=== PATIENT | female | born 1995 | race Caucasian/White ===

== ENCOUNTER 2020-09-22 16:21 | Emergency (ER) | payer SELFPAY ==
--- OUTSIDE RECORDS SUMMARY | 2020-09-22 16:25 | XMS REPORT | Continuity of Care Document ---
:1995 Author Organization [facility] t Address [address] [place] [address] Care Team Providers Name Role Phone CAITY Attending Clinician Unavailable ROSA MARIA Attending Clinician Unavailable Jd Murrell Attending Clinician OSKAR Attending Clinician Unavailable SEED SALES MANAGER Attending Clinician Unavailable SEED SALES MANAGER Attending Clinician Unavailable Jd Murrell Admitting Clinician Problems Condition Condition Condition Status Onset Resolution Last Treating Co mments Source Name Details Category Date Date Treatment Clinician Date LABOR Diagnosis Active 2018-06-23 Mem oria 3-22 15:46:00 l LABOR 18:06: [place] 00 Active 06/17/[address] [facility] Maternal Maternal Problem Active Unive rs morbid morbid it[place] of [place] third third Physici trimester, trimester, an s antepartum antepartum Encounter Encounter Problem Active Uni vers for for it[place] of [place] of n of Physici normal normal ans Cocaine Cocaine Problem Active Univers abuse abuse ity of [place] Physici ans Problem Active U nivers exam exam ity of [place] Physici ans Well woman Well woman Problem Active U nivers exam exam ity of [place] Physici ans Patient Problem Resolve 2017-2018-06-23 2018-06-23 Memoria currently d - 23:11:07 23:11:07 l Patient 00:00: Barbie nn (finding) currently 00 (finding) Resolved 09/15/2017 Problem 06/23/[address] [facility] Allergies, Adverse Reactions, Alerts This patient has no known allergies or adverse reactions. Social History Social Habit Start Date Stop Date Quantity Comments Source Social History 2018-06-18 2018-06-18 [facility] 01:06:19 01:06:19 Smoking Status Start Date Stop Date Source Former smoker [facility] Physicians Medications Ordered Filled Start Stop Current Ordering Indication Dosage Frequency Signature Comments Components Source Medication Medication Date Date Medication? Clinician (SIG) Name Name tramadol Yes 50 mg = 1 Jacoby fransico hydrochlori 3-26 tab, PO, l de 50 MG 19:59: Q6H, PRN Barbie nn Oral Tablet 00 Pain Score 1-3, # 10 tab, 0 Refill(s) CitraNatal Yes 1 cap, PO, M emoria [place] 3-26 Daily, # l oral 19:52: 90 cap, 0 Wes capsule 00 Refill(s), Pharmacy: [facility] ibuprofen Yes 600 mg = 1 Me moria 600 mg oral 3-26 tab, PO, l tablet 19:52: Q6Hnow, # David n 00 60 tab, 0 Refill(s), Pharmacy: [facility] Docusate Yes 100 mg = 1 Mem oria Sodium 100 3-26 cap, PO, l MG Oral 19:52: BID, PRN David n Capsule 00 Constipati on, # 20 cap, 0 Refill(s), Pharmacy: [facility] Tylenol No Notes: Do Memor ia 3-25 not exceed l 12:38: 4 gm/day. [place] (Same as: Tylenol) Tramadol No Notes: Not Mem oria 3-24 to exceed l 17:00: 400mg/day. [place] (Same As: Ultram) No 1 tab, Memoria Multivitami 3-24 Route: PO, l ns oral 14:00: Drug Form: Herm kiran tablet 00 TAB, Dosing Weight 98.636, kg, Daily, Start date: 06/19/18 9:00:00 CDT, Duration: 30 day, Stop date: 07/18/18 9:00:00 CDT Naloxone No Notes: Memoria 3-24 Same as l 13:00: Narcan [place] Meperidine No Notes: Memor ia 3-24 (Same as: l 12:27: Demerol) Wes "Use Precaution in Elderly, Seizure disorders, and Renal impairment " Diphenhydra No Notes: Jacoby fransico mine 3-24 (Same as: l 12:27: Benadryl) Oxycodone No Notes: Memori a Hydrochlori 3-24 (Same as: l de 5 MG 12:27: Roxicodone Herm kiran Oral Tablet 00 ) Ondansetron No Notes: Jacoby fransico 3-24 (Same as: l 12:27: Zofran) MEDICATION WASTE Product Size: 4 mg Product Wasted: ___ mg Acetaminoph No Notes: Max Memoria en 3-24 acetaminop l 12:27: hen 4000 [place] mg/day (4 gm/day). (Same as: Tylenol Extra Strength) Ibuprofen No Notes: Memori a 3-24 (Same as: l 12:27: Motrin) Wes 00 "Do Not Crush" Take with food. RhoGam (MAY 2018 Yes 300 Memori a Charting) 3-23 microgram, l 21:44: Route: IM, ONCE, Dosing Weight 98.636, kg, Start date: 06/18/18 16:44:00 CDT, Stop date: 06/18/18 16:44:00 CDT Benadryl No Notes: Memoria 3-23 (Same as: l 19:21: Benadryl) Ibuprofen No Notes: Memori a 3-23 (Same as: l 19:00: Motrin) Wes 00 "Do Not Crush" Take with food. M-M-R II No Notes: Memoria 3-23 (Same as: l 19:00: M-M-R II) (measles-m umps-rubel la virus vaccine 0.5 ml INJ VL) WASTE: F/P - Red; E -Red GIVE PRIOR TO DISCHARGE propofol No Route: IV, Mem oria (ANES) 3-23 Drug form: l 18:12: INJ, ONCE, Stop date: 06/18/18 13:12:00 CDT Acetaminoph No Notes: Jacoby fransico en 325 MG / 3-23 (Same as: l Hydrocodone 18:10: [place] Barbie nn Bitartrate 00 325/5) Do 5 MG Oral not exceed Tablet 4gm/day of acetaminop hen. Acetaminoph No Notes: Do M emoria en 325 MG / 06-18 not exceed l Hydrocodone 18:10: 4gm/day of [place] Bitartrate 00 acetaminop 10 MG Oral hen. Tablet (Same as: [place] 325/10) zolpidem No Notes: Memoria 3-23 (Same As: l 18:10: Ambien) Acetaminoph No Notes: Do M emoria en - not exceed l 18:10: 4 gm/day. (Same as: Tylenol) Simethicone No Notes: Jacoby fransico - (Same as: l 18:10: Mylicon) lanolin No 1 appl, Memoria topical 06-18 Route: l cream 18:10: TOP, PRN, Drug form: OINT, PRN Other -See Comment, Start date: 06/18/18 13:10:00 CDT, Duration: 30 day, Stop date: 07/18/18 13:09:00 CDT Benzocaine No Notes: Memor ia / Menthol 06-18 Cepacol l 18:10: lozenges Dispense 1 box = 16 lozenges (Same As: Cepacol Lozenges) Bisacodyl No Notes: Memori a - (Same As: l 18:10: Dulcolax, Bisco-Lax) Docusate No Notes: Memoria - (Same as: l 18:10: Colace) (Do Not Crush) Lactated No 1,000 mL, Jacoby fransico Ringers IV 06-18 Rate: 100 l 1,000 mL 18:10: ml/hr, Infuse over: 10 hr, Route: IV, Dosing Weight 98.636 kg, Total Volume: 1,000, Start date: 06/18/18 13:10:00 CDT, Duration: 30 day, Stop date: 07/18/18 13:09:00 CDT, 2.09, m2 Oxytocin 2019-0 No 30 unit, Memor ia 3-23 500 mL, l 18:10: Rate: 42 Wes 00 ml/hr, Infuse over: 11.9 hr, Dosing Weight 98.636, kg, Route: IV, Total Volume: 500 mL, Start date: 06/18/18 13:10:00 CDT, Duration: 2 day, Stop date: 06/20/18 13:09:00 CDT, Replace Every: 11.9 hr methylergon 2019-0 No Route: IM, Memoria ovine 3-23 Drug form: l (ANES) 17:37: INJ, ONCE, Barbie nn Stop date: 06/18/18 12:37:00 CDT esmolol 2019-0 No Route: IV, Jacoby fransico (ANES) 3-23 Drug form: l 17:27: INJ, ONCE, Wes Stop date: 06/18/18 12:27:00 CDT ketAMINE 2019-0 No Route: IV, Mem oria (ANES) 3-23 Drug form: l 17:27: INJ, ONCE, Wes Stop date: 06/18/18 12:27:00 CDT midazolam 2019-0 No Route: IV, Me moria (ANES) 3-23 Drug form: l 17:27: SOLN, [place] ONCE, Stop date: 06/18/18 12:27:00 CDT fentaNYL 2019-0 No Route: IV, Mem oria (ANES) 3-23 Drug form: l 17:17: INJ, ONCE, Wes Stop date: 06/18/18 12:17:00 CDT Pitocin 2019-0 No Route: IV, Jacoby fransico (ANES) 3-23 Drug form: l 17:12: SOLN, [place] 00 ONCE, Stop date: 06/18/18 12:12:00 CDT carboprost 2019-0 No Route: IM, M emoria (ANES) 3-23 Drug form: l 17:07: INJ, ONCE, [place] Stop date: 06/18/18 12:07:00 CDT tranexamic 2019-0 No Route: IV, M emoria acid (ANES) 3-23 Drug form: l 17:07: INJ, ONCE, Stop date: 06/18/18 12:07:00 CDT Atropine 2019-0 No Notes: Memoria Sulfate 3-23 (Same As: l 0.025 MG / 17:06: Lomotil) Her osorio Diphenoxyla 00 MAX Adult te dose = 8 Hydrochlori tabs/day de 2.5 MG Oral Tablet [Lomotil] morphine No Route: Memoria Sulfate 3-23 EPIDURAL, l (ANES) 16:57: Drug form: Barbie nn 00 INJ, ONCE, Stop date: 06/18/18 11:57:00 CDT ropivacaine No Route: IV, Memoria 1% (ANES) 3- Drug Form: l 16:47: INJ, ONCE, Stop date: 06/18/18 11:47:00 CDT ondansetron No Route: IV, Memoria (ANES) 3-23 Drug form: l 16:47: INJ, ONCE, Stop date: 06/18/18 11:47:00 CDT phenylephri No Route: Jacboy fransico ne (ANES) 3- IVP, Drug l 16:47: form: INJ, ONCE, Stop date: 06/18/18 11:47:00 CDT metoclopram No Route: IV, Memoria loida (ANES) 3- Drug form: l 16:47: INJ, ONCE, Stop date: 06/18/18 11:47:00 CDT sodium 2018- No Route: PO, Memor ia citrate - Drug Form: l (ANES) 16:47: INJ, ONCE, Barbie Stop date: 06/18/18 11:47:00 CDT famotidine No Route: IV, M emoria (ANES) 3-23 Drug form: l 16:42: INJ, ONCE, Stop date: 06/18/18 11:42:00 CDT ceFAZolin No Route: IV, Me moria (ANES) 3-23 Drug form: l 16:42: INJ, ONCE, Stop date: 06/18/18 11:42:00 CDT Pitocin 2018- No Route: IV, Jacoby fransico (ANES) 30 3-23 Drug form: l unit + 16:30: Wes KEYS Dosing Weight 98.6, kg, Start date: 06/18/18 11:30:00 CDT, Stop date: 06/18/18 12:30:00 CDT Lactated 2018- No Route: IV, Mem oria Ringers 3-23 Total l Injection 15:53: Volume: Barbie nn IV (ANES) 00 1,000, 1000 mL Start date: 06/18/18 10:53:00 CDT, Stop date: 06/18/18 11:53:00 CDT Ondansetron No Notes: Jacoby fransico 3-23 (Same as: l 15:39: Zofran) [place] 00 MEDICATION WASTE Product Size: 4 mg Product Wasted: ___ mg Morphine No Notes: Memoria 3-23 (Same l 15:39: as:MORPhin [place] 00 e Sulfate) Sodium No 250 mL, Memoria Chloride 3-23 Rate: To l 0.9% 15:38: prime line Wes (titrate) 00 and flush 250 mL remaining blood products., Dosing Weight 98.636, kg, Route: IV, Total Volume: 250, Start Date: 06/18/18 10:38:00 CDT, Duration: 1 day, Stop date: 06/19/18 10:37:00 CDT, Replace Every: 24 hr Oxytocin 2019- No 30 unit, Memor ia 3-23 500 mL, l 01:27: Rate: Wes 00 Titrate, Dosing Weight 98.636, kg, Route: IV, Total Volume: 500 mL, Start date: 06/17/18 20:27:00 CDT, Duration: 2 day, Stop date: 06/19/18 20:26:00 CDT, Replace Every: 24 hr Carboprost No Notes: Memor ia 3-23 (Same As: l 00:00: Hemabate) Wes 00 Methylergon No Notes: Jacoby fransico ovine 3-23 (Same l 00:00: as:Metherg [place] 00 ine) Famotidine No Notes: Memor ia 3-23 (Same as: l 00:00: Pepcid) [place] Can be dilute in 5-10cc NS IVP: Slow IV push over at least 2 minutes. Citric Acid No Notes: Jacoby fransico / sodium 3-23 (Same As: l citrate 00:00: Bicitra, David n 00 Cytra-2) Sodium citrate-ci tric acid (500-334 mg/5 mL): 1 mL contains sodium 1 mEq/mL and bicarbonat e 1 mEq/mL Misoprostol No Notes: Jacoby fransico 3-23 (Same l 00:00: as:Cytotec Wes 00 ) Take with food Ibuprofen No Notes: Memori a 3-22 (Same as: l 23:38: Motrin) [place] "Do Not Crush" Take with food. Acetaminoph No Notes: Jacoby fransico en 325 MG / 3-22 (Same as: l Hydrocodone 23:38: [place] Barbie nn Bitartrate 00 325/5) Do 5 MG Oral not exceed Tablet 4gm/day of acetaminop hen. Ondansetron No Notes: Jacoby fransico 3-22 (Same as: l 23:38: Zofran) Wes MEDICATION WASTE Product Size: 4 mg Product Wasted: ___ mg Terbutaline No Notes: Jacoby fransico 3-22 DO NOT l 23:38: USE IN Wes 00 SEED SALES MANAGER AREA (Same As: [place]) Lidocaine No Notes: Memori a Hydrochlori -22 Preservati l de 10 MG/ML 23:38: ve free. [facility] rmann Injectable (Same as: Solution Xylocaine MPF) Butorphanol No Notes: Jacoby fransico 3-22 (Same As: l 23:38: Stadol) Wes MEDICATION WASTE Product Size: 2 mg Product Wasted: ___ mg Lactated No 1,000 mL, Jacoby fransico Ringers IV 06-17 Rate: 125 l 1,000 mL 23:38: ml/hr, [place] Infuse over: 8 hr, Route: IV, Total Volume: 1,000, Start date: 06/17/18 18:38:00 CDT, Duration: 30 day, Stop date: 07/17/18 18:37:00 CDT Calcium 2019-0 No 1,000 mL, Memor ia Chloride 3-22 1,000 l 0.0014 23:38: ml/hr, Wes MEQ/ML / 00 Infuse Potassium Over: 1 Chloride hr, Route: 0.004 IV, 1,000, MEQ/ML / Drug form: Sodium INJ, ONCE, Chloride kg, Start 0.103 date: MEQ/ML / 06/17/18 Sodium 18:38:00 Lactate CDT, Stop 0.028 date: MEQ/ML 06/17/18 Injectable 18:38:00 Solution CDT, Bolus for regional anesthesia per unit routine Oxytocin 2019 No 30 unit, Memor ia 3-22 500 mL, l 23:38: Rate: 42 [place] 00 ml/hr, Infuse over: 11.9 hr, Route: IV, Total Volume: 500 mL, Start date: 06/17/18 18:38:00 CDT, Duration: 2 day, Stop date: 06/19/18 18:37:00 CDT, Replace Every: 11.9 hr tetanus/dip 2019-0 No Notes: Jacoby fransico hth/pertuss 3-22 Therapeuti l (Tdap) 05:00: c [place] adult/adol 00 Interchang e for Boostrix Vital Signs Vital Name Observation Time Observation Value Comments Source BP Systolic 2018-08-04 120 mm[Hg] Location: [facility] 13:52:00 Position: [place] Physician s Sitting BP Diastolic 2018-08-04 80 mm[Hg] Location: [facility] 13:52:00 Position: [place] Physician s Sitting Height 2018-08-04 61 [in_us] [facility] 13:52:00 [place] Physician s Weight 2018-08-04 202.8 [lb_av] [facility] 13:52:00 [place] Physician s Body Mass Index 2018-08-04 38.32 kg/m2 University o f Calculated 13:52:00 [place] Physician s Heart Rate 2018-08-04 86 /min [facility] 13:52:00 [place] Physician s BP Systolic 2018-07-01 125 mm[Hg] Location: [facility] 14:04:00 Position: [place] Physician s Sitting BP Diastolic 2018-07-01 84 mm[Hg] Location: RUE; [facility] 14:04:00 Position: [place] Physician s Sitting Height 2018-07-01 61 [in_us] [facility] 14:04:00 [place] Physician s Weight 2018-07-01 203 [lb_av] [facility] 14:04:00 [place] Physician s Body Mass Index 2018-07-01 38.36 kg/m2 University o f Calculated 14:04:00 [place] Physician s Heart Rate 2018-07-01 79 /min [facility] 14:04:00 [place] Physician s Temperature Oral 2018-06-21 98.0 F [facility] ([facility] 13:36:00 Respitory Rate 2018-06-21 [facility] 13:36:00 Systolic (mm Hg) 2018-06-21 [facility] 13:36:00 Diastolic (mm Hg) 2018-06-21 [facility] 13:36:00 Heart Rate 2018-06-21 [facility] 13:36:00 Temperature Oral 2018-06-21 97.8 F [facility] (F) 05:00:00 Heart Rate 2018-06-21 [facility] n 05:00:00 Respitory Rate 2018-06-21 [facility] 05:00:00 Systolic (mm Hg) 2018-06-21 [facility] 05:00:00 Diastolic (mm Hg) 2018-06-21 [facility] 05:00:00 Heart Rate 2018-06-20 [facility] David n 22:32:00 Temperature Oral 2018-06-20 97.5 F [facility] (F) 22:32:00 Respitory Rate 2018-06-20 [facility] 22:32:00 Systolic (mm Hg) 2018-06-20 [facility] 22:32:00 Diastolic (mm Hg) 2018-06-20 [facility] 22:32:00 Height 2018-06-18 152.4 cm [facility] David n 00:28:00 BMI Calculated 2018-06-18 [facility] 00:28:00 Weight 2018-06-18 [facility] David n 00:28:00 Height 2018-06-17 154.94 cm [facility] n 23:54:00 Weight 2018-06-17 [facility] n 23:54:00 BMI Calculated 2018-06-17 [facility] 23:54:00 BP Systolic 2018-06-16 132 mm[Hg] Location: E; [facility] 13:43:00 Position: [place] Physician s Sitting BP Diastolic 2018-06-16 85 mm[Hg] Location: E; [facility] 13:43:00 Position: [place] Physician s Sitting Height 2018-06-16 61 [in_us] [facility] 13:43:00 [place] Physician s Weight 2018-06-16 219 [lb_av] [facility] 13:43:00 [place] Physician s Body Mass Index 2018-06-16 41.38 kg/m2 University o f Calculated 13:43:00 [place] Physician s Heart Rate 2018-06-16 101 /min University 13:43:00 [place] Physician s BP Systolic 2018-06-09 117 mm[Hg] Location: E; [facility] 12:59:00 Position: [place] Physician s Sitting BP Diastolic 2018-06-09 80 mm[Hg] Location: [facility]; [facility] 12:59:00 Position: [place] Physician s Sitting Height 2018-06-09 61 [in_us] University 12:59:00 [place] Physician s Weight 2018-06-09 218 [lb_av] University 12:59:00 [place] Physician s Body Mass Index 2018-06-09 41.19 kg/m2 University o f Calculated 12:59:00 [place] Physician s Heart Rate 2018-06-09 102 /min University 12:59:00 [place] Physician s BP Systolic 2018-06-02 116 mm[Hg] Location: [place]; [facility] 13:34:00 Position: [place] Physician s Sitting BP Diastolic 2018-06-02 79 mm[Hg] Location: [facility]; [facility] 13:34:00 Position: [place] Physician s Sitting Height 2018-06-02 61 [in_us] University 13:34:00 [place] Physician s Weight 2018-06-02 217 [lb_av] University 13:34:00 [place] Physician s Body Mass Index 2018-06-02 41 kg/m2 University o f Calculated 13:34:00 [place] Physician s Heart Rate 2018-06-02 78 /min University 13:34:00 [place] Physician s Procedures Procedure Date / Time Performing Clinician Source Performed [O] Urine Test 2018-08-04 00:00:00 [facility] [place] (in office) Physicians . [facility] - PAP w/reflex 2018-08-04 00:00:00 [facility] [place] HPV Physicians [QLH] RPR 2018-06-02 00:00:00 [place] [facility] Physicians [QH] HIV AB, HIV 1/2, EIA, 2018-06-02 00:00:00 U [facility] WITH REFLEXES Physicians . [facility] - Affirm VPIII 2018-06-02 00:00:00 [facility] (BV Panel) Physicians . [facility] - GC/Chlamydia 2018-06-02 00:00:00 Univ [facility] Physicians [QH] HEPATITIS B SURFACE 2018-06-02 00:00[facility] Physician s [QL] HEPATITIS C ANTIBODY 2018-06-02 [facility]:00[facility] [[facility] Drug Screen Urine (9 2018-06-02 00:00:00 Uni [facility] Drugs) Physicians [H] Hemoglobin 2018-06-02 00:00:00 [facility] Electrophoresis and Physicians Interpretation [H] Obstetrics Panel 2018-06-02 00:00:00 [facility] (includes CBCw/Diff,RPR, Physici ans HbsAg,RubIgG,Type and Screen) [H] Treponema Pallidum 2018-06-02 00:00:00 [facility] Antibody by TP-[facility] Physicians [QH] [id number] 2018-06-02 00:00:00 [facility] DEHYDROGENASE, QUANT. Physicians [QLH] CULTURE, URINE, 2018-06-02 00:00:00 [facility] ROUTINE Physicians [QLH] URINALYSIS, COMPLETE 2018-06-02 00:00:00 U [facility] Physicians [QH] STREPTOCOCCUS, GROUP 2018-06-02 00:00[facility] (Genital Strep Physici ans Screen) Encounters Start End Encounter Admission Attending Care Care Encounter Source Date/Time Date/Time Type Type Clinicians Facility Department ID 2018-08-04 2018-08-04 YASEMIN López Meat Carrier [id number] Univers 14:45:00 14:45:00 armando KRAUS M.D. it [facility] [place] Phys[facility] M.D. ans 2018-07-01 2018-07-01 YASEMIN [facility] [id number] Univers 15:00:00 15:00:00 t; Arabella STEPHENS itBrian D.O. [place] STEPHENS D.O. ans 2018-06-17 2018-06-21 Outpatient [facility] 404 [id number] 18:18:00 18:00:00 Aurora parra 81 J 2018-06-16 2018-06-16 Appointmen YASEMIN SCHMITT Meat Carrier [id number] Univers 13:30:00 13:30:00 t; KATHY SCHMITT it y [place], M.D. [place] M.D. Physici ans 2018-06-09 2018-06-09 Appointmen SEED SALES MANAGER [facility] [id number] Univers 15:30:00 15:30:00 t; SEED SALES MANAGER, ROOM1 ity of ROOM1 [place] Physici ans 2018-06-09 2018-06-09 Appointmen YASEMIN SCHMITT Meat Carrier [id number] Univers 13:45:00 13:45:00 t; KATHY SCHMITT it y of [place], M.D. [place] M.D. Physic ans 2018-06-03 2018-06-03 Appointmen SEED SALES MANAGER [facility] [id number] Univers 11:30:00 11:30:00 t; SEED SALES MANAGER, ROOM4 ity of ROOM4 [place] Physici ans 2018-06-02 2018-06-02 AppointYASEMIN Magana Meat Carrier [id number] Univers 14:30:00 14:30:00 t; KATHY SCHMITT it y of [place], M.D. [place] Josie [facility] ans Results Test Description Test Time Test Comments Results Result Comments Source [facility] Report 2018-08-04 00:00:00 Test Item Value Reference Range Interpretation Comme nts REPORT (test code = REPORT) See Comment [facility] Physicians[O] Urine Test (in office)2018-08-04 00:00:00 Test Item Value Reference Range Interpretation Comments Test, Urine; Normal (test negative N code = 2106-3) [facility] [id number] 11:23:38324Cyewrbgk Wes ATKIIOUAKU0731-72-26 11:23:008.0[facility] NzsszgkGKWMZJIMMH2122-80-50 11:23:00 33.7[facility] SioiqqyYCQUWCSBJX0185-74-37 11:23:0014.7[facility] HermannHEMATOLOGY 2018-06-20 11:23:0084.3[facility] EolzocoDFATPCKKTL9732-46-05 11:23:00 Test Item Value Reference Range Interpretation Comments MCH (test code = MCH) 28.4 pg 27.0-31.0 Memorial ZkhlcgrGOMVULKURO4981-30-38 11:23:008.9[facility] HermannHEMATOLOGY 2018-06-20 11:23:0014.6[facility] EchhyjiQITIPCOJAK2979-55-74 11:23:0026.4[facility] XtyxdduHJOLUDTJVH2045-45-15 11:23:003.13[facility] UidqqgnYBMALSVUJK4455-25-67 11:23:001.5[facility] ZvjqboxNDUYSHPGEA2682-04-94 11:23:000.1[facility] Wes BREEAQGPPK1310-24-83 11:23:0013.1[facility] JjqiujoTSCHRBIGOO3984-51-90 11:23:00 79.9[facility] GnynfwzXIVMVUQYFE3473-77-48 11:23:000.2[facility] HermannHEMATOLOGY 2018-06-20 11:23:000.8[facility] VokbpndRYNPBTGVWX2727-47-81 11:23:0011.7[facility] SnovhsbQFBNLNCGIN2270-43-69 11:23:001.9[facility] UiphqwvQAGGNQBGZK3971-59-72 11:23:005.4[facility] JnotlmeNNDSRIHAFL0579-10-61 10:59:0028.3[facility] [place] AFFKTJHIQY3024-79-25 10:59:009.4[facility] KjvjgjoSFBVQPBVGJ7125-78-91 01:25:00 31.5[facility] VrrsqilEQFHUHPUDT0603-81-12 01:25:0010.4[facility]annBL[facility]OD BANK [id number] 22:00:34Neg (06/18/18 5:00 PM)[facility] [id number] 21:44:00Product available (06/18/18 4:44 PM)[facility] BLOOD BANK [id number] 18:20:00Product available (06/18/18 1:20 PM)[facility] HermannCHEM [id number] 05:42:77595Smqfjypi HermannCHEM [id number] 05:42:00 Test Item Value Reference Range Interpretation Comments B/C Ratio (test code = B/C Ratio) 12 1 6-25 [facility]annCHE[facility] [id number] 05:42:004.3[facility] HermannCHEM PANEL 2018-06-18 05:42:000.1[facility] HermannCHEM [id number] 05:42:0014.9[facility] HermannCHEM [id number] 05:42:00 Test Item Value Reference Range Interpretation Comments A/G Ratio (test code = A/G Ratio) 0.6 1 0.7-1.6 [facility]annCHEM [id number] 05:42:0082[facility] HermannCHEM PANEL 2018-06-18 05:42:009[facility] HermannCHEM YJQPK7136-89-29 05:42:000.72[facility] HermannCHEM RJQRM6021-56-32 05:42:006.8[facility] HermannCHEM [id number] 05:42:002.5[facility] HermannCHEM MBVAN3420-01-12 05:42:0012[facility] HermannCHEM [id number] 05:42:0020[facility] HermannCHEM ZYGOA4851-26-09 05:42:84571 [facility]annCHEM [id number] 05:42:27954Rymiiaby HermannCHEM PANEL 2018-06-18 05:42:003.9[facility] HermannCHEM [id number] 05:42:61914Slxgxkfl HermannCHEM ZTGYO1582-95-08 05:42:0022[facility] HermannCHEM [id number] 05:42:009.0[facility] HermannURINE [id number] 05:42:00 Test Item Value Reference Range Interpretation Comments U Prot/Creat (test code = U 0.15 1 Prot/Creat) [facility]annURINE [id number] 05:42:0013.4[facility]annURINE CHEM 2018-06-18 05:42:0087.20[facility]annBLOOD BANK [id number] 00:32:00 Positive 1(06/17/18 7:32 PM)[facility]annDR[facility] [id number] 00:32:00 Negative *NA*(06/17/18 7:32 PM)[facility]annDR[facility] [id number] 00:32:00 Negative *NA*(06/17/18 7:32 PM)[facility]annDR[facility] [id number] 00:32:00 Negative *NA*(06/17/18 7:32 PM)[facility]annDR[facility] [id number] 00:32:00 Negative *NA*(06/17/18 7:32 PM)[facility] FCMGJP6038-62-09 00:32:00 Negative *NA*(06/17/18 7:32 PM)[facility] HYRVUA1709-90-32 00:32:00 Negative *NA*(06/17/18 7:32 PM)[facility] LAYNWP1787-38-33 00:32:00 Negative *NA*(06/17/18 7:32 PM)[facility] TSVZOP6889-61-00 00:32:00 Negative *NA*(06/17/18 7:32 PM)[facility] EIZJMJ0378-49-71 00:32:00See Note (06/17/18 7:32 PM)[facility] MJFONW9376-35-80 00:32:00Negative *NA*(06/17/18 7:32 PM)[facility] AGTOAS6001-44-69 00:32:00Negative *NA*(06/17/18 7:32 PM)[facility] WcsdlvqEOXBGHPKEQ4675-70-31 00:32:000.2[facility] WsjvidmYYCUUXMYXJ5031-55-08 00:32:000.3[facility] CzjqmobJJFOXRUJYK9145-19-14 00:32:001.7[facility] BmjtakpEAXCDCDWKL1256-78-44 00:32:000.6[facility] [place] MUZJPDRRUV5709-29-16 00:32:007.7[facility] BkgmqyeIQVLXGFLET3308-57-46 00:32:002.5 [facility] AqdsuhoJSSQLIDEWO5412-94-76 00:32:0069.7[facility] 2018-06-18 00:32:005.3[facility] WuegauaSFZRILWQXC4818-00-20 00:32:0023.0[facility] SkikbquVWJZGFHVHF3558-01-12 00:32:81329Ajmmzpld GdteokqXLAHYVLXYN6123-33-78 00:32:0014.2[facility] VckpgnbNQCZFQOAYP6925-00-23 00:32:008.5[facility] ZXGFDZFDQJ1094-13-15 00:32:0083.0[facility] PltbzeyMQRJJVDGRX2162-21-99 00:32:00 33.0[facility] KrcnockFMOLSWHJFN4150-76-94 00:32:00 Test Item Value Reference Range Interpretation Comments MCH (test code = MCH) 27.4 pg 27.0-31.0 [facility] NyosgyqYBIHMRTSUS9844-80-61 00:32:0011.1[facility] 2018-[facility]18 00:32:003.92[facility] [id number] 00:32:00Negative *NA*(06/17/18 7:32 PM)[facility] [id number] 00:32:00Negative *NA*(06/17/18 7:32 PM)[facility] [id number] 00:32:00Non-Reactive *NA*(06/17/18 7:32 PM)[facility][H] Obstetrics Panel (includes CBCw/Diff,RPR, HbsAg,RubIgG,Type and Screen)2018-06-02 14:48:01 Test Item Value Reference Range Interpretation Comments WBC; Above High 11.0 {K/CMM} 3.7-10.4 Threshold (test code = 6690-2) RBC; Below Low 4.03 {M/CMM} 4.20-5.40 Threshold (test code = 789-8) Hgb; Below Low 11.3 g/dl 12.0-16.0 Threshold (test code = 717-9) Hct; Below Low 33.8 % 36.0-48.0 Threshold (test code = 71762-3) MCV (test code = 84.1 fL 80.0-98.0 787-2) MCH (test code = 28.1 pg 27.0-31.0 67113-8) MCHC (test code = 33.5 g/dl 32.0-36.0 786-4) RDW (test code = 13.9 % 11.5-14.5 788-0) Platelet (test code = 292 {K/CMM} 133-450 777-3) MPV (test code = 8.4 fL 7.4-10.4 08264-3) Segs (test code = 74.9 % 45.0-75.0 83144-1) Monocytes # (test 0.5 {K/CMM} 0.0-0.8 code = 01142-4) Lymphocytes (test 19.8 % 20.0-40.0 code = Lymphocytes) Eosinophils (test 0.9 % 0.0-4.0 code = Eosinophils) Basophils (test code 0.2 % 0.0-1.0 = 91209-8) Segs-Bands #; Above 8.2 {K/CMM} 1.5-8.1 High Threshold (test code = 42651-5) Lymphocytes # (test 2.2 {K/CMM} 1.0-5.5 code = 06407-4) Eosinophils # (test 0.1 {K/CMM} 0.0-0.5 code = 15239-4) ABORH (test code = O NEG 882-1) AB Screen (test code Positive = 890-4) Rubella IgG (test 231.9 {IU/ml} >=10.0 Reference Range: code = 96802-8) Immune >= 10 IU/mL Hep Bs Ag (test code Negative Negative = 5195-3) RPR (test code = Non-Reactive Non-Reactive 45231-5) [facility][QH] HEPATITIS B SURFACE ANTIGEN W/REFL CONFIRM 2018-06-02 14:48:01 Test Item Value Reference Range Interpretation Comments Hepatitis B Surface Antigen (test Negative Negative code = 5195-3) [facility]] HEPATITIS C [id number] 14:48:01 Test Item Value Reference Range Interpretation Comments Hepatitis C Antibody (test code = Negative 43541-9) [facility][] HIV AB, HIV 1/2, EIA, WITH [id number] 14:48:01 Test Item Value Reference Range Interpretation Comments HIV Ag/Ab 4th Gen Negative Negative HIV test r esults should be (test code = considered posi tive only 83284-4) when both the s creening andthe confirma tory tests are positive. A negative confirmatory te st in patientswith a positive screening test does not exclude HIV inf ection. If clincallywarran kayley, an HIV RNA quantitativ e test should be order ed. [facility]] URINALYSIS, [id number] 14:48:01 Test Item Value Reference Range Interpretation Comments UA Color (test code = 5778-6) Ltyellow UA Turbidity (test code = 04681-3) Clear Clear UA Spec Grav (test code = 5810-7) 1.012 <=1.030 UA pH (test code = 5803-2) 6.0 5.0-8.0 UA Protein (test code = 94044-7) Negative Negative UA Glucose (test code = 00921-3) Negative Negative UA Ketones (test code = 57583-9) Negative Negative UA Bili (test code = 5770-3) Negative Negative UA Blood (test code = 5794-3) Negative Negative UROBILINOGEN (test code = 29420-3) <=1.0 0.1-1.0 UA Nitrite (test code = 5802-4) Negative Negative UA Leuk Est (test code = 5799-2) Negative Negative UA RBC (test code = 48200-5) 1 {/HPF} 0-2 UA WBC (test code = 89532-1) 2 {/HPF} 0-5 UA Bacteria (test code = 25165-5) Occasional None Seen UA Mucus (test code = 8247-9) Few None Seen UA Sq Epi (test code = 09986-5) Occasional Few [facility][H] Drug Screen Urine (9 Drugs)2018-06-02 14:48:01 Test Item Value Reference Range Interpretation Comments U Amph Scr (test code = Negative Negative 3349-8) Urine Barbiturate Negative Negative Screen (test code = 3377-9) Urine Benzodiazepine Negative Negative Screen (test code = 3390-2) Urine Cannabinoid Negative Negative Screen (test code = 3427-2) Urine Cocaine Screen Negative Negative (test code = 3397-7) Urine Methadone Screen Negative Negative (test code = 3773-9) Urine Opiate Screen Negative Negative (test code = 3879-4) Urine Phencyclidine Negative Negative Screen (test code = 3936-2) Urine Propoxyphene Negative Negative Screen (test code = 19831-4) Urine Drug Screen Note See Note Drugs reported as (test code = Urine Drug posi tive have not been Screen Note) confirmed by a secondmethod an d should be used for medical purpose s only. To orderconfirm ation, contact laboratory.no te: Below are cut-o ff concentrations for all urine drugs ofjeimy lemus performed in e laboratory. [facility] [place] listed in the t ablemay not be included in this panel.Desc ription C ut-off concentration-- ------- ------- ----Amp hetamine 1000 ng/mLBarbiturat es 200 ng/mLBenzodiaze pines 200 ng/mLCocaine metabolites 300 ng/mLOpiate s 300 ng/mLPhencyclid ine 25 ng/mLPropoxyphe ne 300 ng/mLMarijuana metabolites 50 ng/mLMethado ne 300 ng/mLUrine alco hol 20 mg/dL [facility][H] Treponema Pallidum Antibody by [id number] 14:48:01 Test Item Value Reference Range Interpretation Comments T pallidum Ab (test code = Non Reactive Non Reactive 84331-7) [facility]] CULTURE, URINE, [id number] 14:48:01 Test Item Value Reference Range Interpretation Comments FINAL REPORT (test code <10,000 CFU/mL Skin = FINAL REPORT) [facility][QH] STREPTOCOCCUS, GROUP B CULTURE (Genital Strep Screen)2018-06-02 14:48:01 Test Item Value Reference Range Interpretation Comments FINAL REPORT (test No Beta-Hemolytic code = FINAL REPORT) Streptococci Isolated [facility][H] Hemoglobin Electrophoresis and Interpretation 2018-06-02 14:48:01 Test Item Value Reference Range Interpretation Comments Hgb A % (test code = 97.6 % 95.8-97.8 4546-8) Hgb A2 % (test code = 2.4 % 2.2-3.2 4552-6) Hgb F % (test code = 0.0 % 0.0-1.0 13871-2) Hgb S % (test code = 0.0 % 0.0-0.0 22651-9) Hgb C % (test code = 0.0 % 0.0-0.0 92651-1) Hemoglobin SEE NOTES No abnormal Electrophoresis hemoglobins are Interpretation (test detecte d. Normal code = 43077-9) hemoglobin electrophoresis raimundo rain.[facility] medical record has been reviewed f or relevant history.Ihave personally revi ewed the test result s and concur with the resident'sinter preta tion.CPT [id number] cj Signature Madie Serra MD 05/27 04/16 12:47 PM [facility]. [facility] - [id number] 00:00:00 Test Item Value Reference Range Interpretation Comments GC/Chlamydia REPORT (test code = See Comment 04636-0) [facility]
[2020-09-22] MEDS ORDERED: IBUPROFEN 400 MG TAB ONE (17:23)
--- NOTE | 2020-09-22 17:59 | RAD REPORT ---
EXAM DESCRIPTION: RAD - Foot Right 3 View - 09/22/2020 5:49 pm CLINICAL HISTORY: Right foot pain status post injury FINDINGS: Cortical irregularity involves the second, third and fourth metatarsal necks probably nond isplaced fractures. This should be correlated clinically. No dislocation
--- NOTE | 2020-09-22 18:10 | EDPHYS ---
Physician Documentation [facility] Name: Grecia Alcantara Age: 25 yrs Sex: Female : 1995 Arrival Date: 09/22/2020 Time: 16:21 Bed 23 Private MD: TIMOTHY Physician Arturo Kelsey HPI: 09/22 18:46 This 25 yrs old Female presents to ER via Wheelchair with complaints of Foot kb Pain, Foot Injury. 18:46 The patient presents with an injury, pain, swelling, tenderness. The complaints affect kb the dorsum of right foot. Context: The problem was sustained at a park, resulted from twisted foot while on slide, the patient can partially bear weight, the patient is able to ambulate. Onset: The symptoms/episode began/occurred yesterday. Modifying factors: The symptoms are alleviated by nothing, the symptoms are aggravated by weight bearing. Associated signs and symptoms: Pertinent positives: swelling, Pertinent negatives: calf tenderness, fever, nausea, numbness, rash, tingling, vomiting, warmth, weakness. Severity of symptoms: At their worst the symptoms were moderate, in the emergency department the symptoms are unchanged. The patient has not experienced similar symptoms in the past. The patient has not recently seen a physician. Pt reports she was going down the slide yesterday and her foot when underneath her and twisted. c/o right foot pain and swelling since then. Historical: - Allergies: 16:47 No Known Allergies; ll1 - PMHx: 16:47 None; ll1 - PSHx: 16:47 ; ll1 - Immunization history:: Flu vaccine is up to date. - Social history:: Smoking status: Patient reports the use of cigarette tobacco products, smokes one pack cigarettes per day. ROS: 18:48 Constitutional: Negative for fever, chills, and weight loss, Neuro: Negative for kb headache, weakness, numbness, tingling, and seizure. 18:48 MS/extremity: Positive for ecchymosis, pain, swelling, tenderness, of the dorsum of right foot. 18:48 Skin: Positive for ecchymosis, swelling, of the dorsum of right foot. Exam: 18:49 Constitutional: This is a well developed, well nourished patient who is awake, alert, kb and in no acute distress. Head/Face: Normocephalic, atraumatic. ENT: Moist Mucous membranes Respiratory: Respirations even and unlabored. No increased work of breathing, no retractions or nasal flaring. Neuro: Awake and alert, GCS 15, oriented to person, place, time, and situation. Moves all extremities. Normal gait. Psych: Awake, alert, with orientation to person, place and time. Behavior, mood, and affect are within normal limits. 18:49 Musculoskeletal/extremity: Extremities: grossly normal except: noted in the dorsum of right foot: ecchymosis, pain, swelling, tenderness, ROM: limited active range of motion due to pain, in the dorsum of right foot, Circulation is intact in all extremities. Sensation intact. Weight bearing: able to fully bear weight. 18:49 Skin: 18:49 Skin: Appearance: normal except for affected area, ecchymosis, noted on the, dorsum of right foot, that are mild, of the dorsum of right foot. Vital Signs: 16:45 BP 128 / 71; Pulse 79; Resp 17; Temp 97.1; Pulse Ox 99% ; Weight 104.33 kg; Height 5 ll1 ft. 1 in. (154.94 cm); Pain 8/10; 17:13 Pulse 76; Resp 16; Pulse Ox 98% on R/A; zb 18:16 BP 120 / 80; Pulse 76; Resp 16; Pulse Ox 100% on NC; zb 16:45 Body Mass Index 43.46 (104.33 kg, 154.94 cm) ll1 MDM: 16:49 Patient medically screened. kb 16:50 Data reviewed: vital signs, nurses notes. Data interpreted: Pulse oximetry: on room air kb is 99 %. Interpretation: normal. 18:05 Counseling: I had a detailed discussion with the patient and/or guardian regarding: the kb historical points, exam findings, and any diagnostic results supporting the discharge/admit diagnosis, radiology results, the need for outpatient follow up, a orthopedic surgeon, to return to the emergency department if symptoms worsen or persist or if there are any questions or concerns that arise at home. 09/22 16:53 Order name: Foot Right 3 View XRAY; Complete Time: 18:04 kb 09/22 16:53 Order name: Ice pack; Complete Time: 17:06 kb 09/22 18:05 Order name: Post-op shoe; Complete Time: 18:06 kb Administered Medications: 17:10 Drug: Ibuprofen 800 mg Route: PO; zb 18:13 Follow up: Response: No adverse reaction; Marked relief of symptoms; Pain is decreased zb Disposition: 09/22/20 18:10 Discharged to Home. Impression: Nondisplaced fracture of third metatarsal bone, right foot, Nondisplaced fracture of second metatarsal bone, right foot, Nondisplaced fracture of fourth metatarsal bone, right foot. - Condition is Stable. - Discharge Instructions: Metatarsal Fracture. - Prescriptions for Ibuprofen 800 mg Oral Tablet - take 1 tablet by ORAL route every 8 hours As needed take with food; 30 tablet. - Medication Reconciliation Form, Work release form, Thank You Letter, Antibiotic Education, Prescription Opioid Use form. - Follow up: Emergency Department; When: As needed; Reason: Worsening of condition. Follow up: Private Physician; When: 2 - 3 days; Reason: Recheck today's complaints, Continuance of care, Re-evaluation by your physician. Signatures: Dispatcher [employer] EDIvy Garcia, FACILITY ENGINEER-C FACILITY ENGINEER-Amador Henriquez RN RN ll1 Shima Dennis RN RN zb Corrections: (The following items were deleted from the chart) 18:18 18:10 09/22/2020 18:10 Discharged to Home. Impression: Nondisplaced fracture of third zb metatarsal bone, right foot; Nondisplaced fracture of second metatarsal bone, right foot; Nondisplaced fracture of fourth metatarsal bone, right foot. Condition is Stable. Forms are Medication Reconciliation Form, Thank You Letter, Antibiotic Education, Prescription Opioid Use. Follow up: Emergency Department; When: As needed; Reason: Worsening of condition. Follow up: Private Physician; When: 2 - 3 days; Reason: Recheck today's complaints, Continuance of care, Re-evaluation by your physician. kb
--- NOTE | 2020-09-22 18:10 | ER ---
Nurse's Notes [facility] Name: Grecia Alcantara Age: 25 yrs Sex: Female : 1995 Arrival Date: 09/22/2020 Time: 16:21 Bed 23 Private MD: Diagnosis: Nondisplaced fracture of third metatarsal bone, right foot;Nondisplaced fracture of second metatarsal bone, right foot;Nondisplaced fracture of fourth metatarsal bone, right foot Presentation: 09/22 16:45 Chief complaint: Patient states: R foot pain and swelling after going down a slide ll1 yesterday. Foot got caught under her. PMS intact. No head injury or LOC. Coronavirus screen: Client denies travel out of the [place] in the last 14 days. At this time, the client does not indicate any symptoms associated with coronavirus-19. Ebola Screen: Patient denies travel to an Ebola-affected area in the 21 days before illness onset. Initial Sepsis Screen: Does the patient meet any 2 criteria? No. Patient's initial sepsis screen is negative. Does the patient have a suspected source of infection? No. Patient's initial sepsis screen is negative. Risk Assessment: Do you want to hurt yourself or someone else? Patient reports no desire to harm self or others. Onset of symptoms was September 21, 2020. 16:45 Method Of Arrival: Wheelchair ll1 16:45 Acuity: RICARDO 4 ll1 Historical: - Allergies: 16:47 No Known Allergies; ll1 - PMHx: 16:47 None; ll1 - PSHx: 16:47 ; ll1 - Immunization history:: Flu vaccine is up to date. - Social history:: Smoking status: Patient reports the use of cigarette tobacco products, smokes one pack cigarettes per day. Screenin:11 Abuse screen: Denies threats or abuse. Denies injuries from another. Nutritional zb screening: No deficits noted. Tuberculosis screening: No symptoms or risk factors identified. Fall Risk None identified. Assessment: 17:12 General: Appears in no apparent distress. uncomfortable, Behavior is cooperative. Pain: zb Complains of pain in right foot Pain does not radiate. Pain currently is 9 out of 10 on a pain scale. Quality of pain is described as aching, Pain began 1 day ago. Alleviated by rest, Aggravated by increased activity, repositioning, weight bearing. Neuro: Level of Consciousness is awake, alert, obeys commands. Cardiovascular: No deficits noted. Respiratory: No deficits noted. Derm: Skin is intact, is healthy with good turgor. Musculoskeletal: Capillary refill < 3 seconds, toes. Swelling present in right foot. 18:18 Reassessment: Patient appears in no apparent distress at this time. Patient and/or zb family updated on plan of care and expected duration. Pain level reassessed. Patient is alert, oriented x 3, equal unlabored respirations, skin warm/dry/pink. Vital Signs: 16:45 BP 128 / 71; Pulse 79; Resp 17; Temp 97.1; Pulse Ox 99% ; Weight 104.33 kg; Height 5 ll1 ft. 1 in. (154.94 cm); Pain 8/10; 17:13 Pulse 76; Resp 16; Pulse Ox 98% on R/A; zb 18:16 BP 120 / 80; Pulse 76; Resp 16; Pulse Ox 100% on NC; zb 16:45 Body Mass Index 43.46 (104.33 kg, 154.94 cm) ll1 ED Course: 16:21 Patient arrived in ED. am2 16:38 Ivy Bailon FNP-C [facility]. kb 16:38 Arturo Kelsey MD is Attending Physician. kb 16:47 Triage completed. ll1 16:47 Arm band placed on Patient placed in an exam room, on a stretcher. ll1 16:58 Shima Dennis, JACINTA is Primary Nurse. zb 17:11 Patient has correct armband on for positive identification. Bed in low position. Call zb light in reach. Side rails up X 1. Pulse ox on. NIBP on. Door closed. Noise minimized. 17:14 Ice pack to injury. zb 17:49 Foot Right 3 View XRAY In Process Unspecified. EDMS 18:16 No provider procedures requiring assistance completed. Patient did not have IV access zb during this emergency room visit. 18:17 Ortho shoe applied to right foot. zb Administered Medications: 17:10 Drug: Ibuprofen 800 mg Route: PO; zb 18:13 Follow up: Response: No adverse reaction; Marked relief of symptoms; Pain is decreased zb Outcome: 18:10 Discharge ordered by . kb 18:16 Discharged to home ambulatory, with family. zb 18:16 Condition: stable 18:16 Discharge instructions given to patient, Instructed on discharge instructions, follow up and referral plans. medication usage, Demonstrated understanding of instructions, follow-up care, medications, Prescriptions given X 1. 18:18 Patient left the ED. zb Signatures: Dispatcher [employer] EDNJ Ivy Bailon, SOLE-C SEWER AND DRAIN TECHNICIAN-CkNydia Alberto Lynsay, RN RN ll1 Shima Dennis RN RN zb
[2020-09-22 18:28] VITALS: TEMP 97.1
[2020-09-22 18:31] VITALS: BP 120/80; O2SAT 100
== END 2020-09-22 18:18 | disposition home or self-care (01) ==
LOC: ER 16:21
DX: S92.334A Nondisplaced fracture of third metatarsal bone, right foot, initial encounter for closed fracture (principal); S92.324A Nondisplaced fracture of second metatarsal bone, right foot, initial encounter for closed fracture; S92.344A Nondisplaced fracture of fourth metatarsal bone, right foot, initial encounter for closed fracture; F17.210 Nicotine dependence, cigarettes, uncomplicated; X50.0XXA Overexertion from strenuous movement or load, initial encounter; Y93.89 Activity, other specified; Y92.830 Public park as the place of occurrence of the external cause
CPT/HCPCS: 99284

== ENCOUNTER 2023-02-24 15:36 | Emergency (ER) | payer SELFPAY ==
--- OUTSIDE RECORDS SUMMARY | 2023-02-24 15:44 | XMS REPORT | Continuity of Care Document ---
:1995 Author Organization [facility] t Address [address] [place] [address] [address] [place] [address] Care Team Providers Name Role Phone PCP, PATIENT DOES NOT HAVE A Primary Care Physician UnavailVannesa Wright Attending Clinician VANNESA CHEN Attending Clinician Unavailable Doctor Unassigned, Hugo Attending Clinician Unavailable ADWOA REAGAN Attending Clinician Unavailable Adwoa Reagan MD Attending Clinician ANDREIA DUNN Attending Clinician Unavailable NAYANA CAROLINA M.D. Attending Clinician Unavailable KAT CRANE D.O. Attending Clinician Unavailable Aurora Murrell Attending Clinician KATHY SCHMITT M.D. Attending Clinician Unavailable FUR EXAMINER, ROOM1 Attending Clinician Unavailable FUR EXAMINER, ROOM4 Attending Clinician Unavailable ADWOA REAGAN Admitting Clinician Unavailable Aurora Murrell Admitting Clinician Payers Payer Name Policy Type Policy Number Effective Date Expiration Date 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 2018-2018-06-23 Mem oria Active -22 15:46:00 l 06/17/2018 18:06: David muñiz [address] Bradycardi Bradycardi Disease Active U nivers a a 8-16 ity of 00:00: [address] Single Single Disease Active Univers live live 8-16 it y of 00:00: [address] Normal Normal Disease Active Univers vaginal vaginal 8-16 ity of delivery delivery 00:00: [address] Normal Normal Disease Active Univers labor labor 8-15 ity of 00:00: [address] 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 Physici obesity in obesity in an s third third trimester, trimester, antepartum antepartum Encounter Encounter Problem Active [facility] for for Physici supervisio supervisio an s n of n of normal normal Cocaine Cocaine Problem Active [facility] abuse abuse Physici ans Problem Active U T exam exam Physici ans Well woman Well woman Problem Active U T exam exam Physici ans Patient Patient Problem Resolve 2018-06-23 2018-06-23 Memoria currently currently d 6-20 23:11:07 23:11:07 l 00:00: David muñiz (finding) (finding) 00 Resolved 09/15/2017 Problem 06/23/2018 [facility] Allergies, Adverse Reactions, Alerts Allergy Allergy Status Severity Reaction(s) Onset Inactive Treating Comm ents Source Name Type Date Date Clinician NO KNOWN Drug Active Univers ALLERGIE Class ity of [facility] Social History Social Habit Start Date Stop Date Quantity Comments Source Gender identity [facility]it y [facility] Alcohol intake 2022-10-08 2022-10-08 Current University of 00:00:00 00:00:00 non-drinker of [facility] alcohol Branch (finding) Exposure to 2022-03-06 2022-03-16 Not sure University SARS-CoV-2 (event) 00:00:00 18:41:00 [facility] History of Social 2022-03-16 2022-03-16 Univers ity of function 00:00:00 00:00:00 [facility] Tobacco use and 2020-10-04 2020-10-04 Smokeless Universit y of exposure 00:00:00 00:00:00 tobacco non-user [facility] Social History 2018-06-18 2018-06-18 [facility] ho 01:06:19 01:06:19 Sex Ass[birth year] At [birth year] Universit y of 00:00:00 00:00:00 [facility] Smoking Status Start Date Stop Date Source Former smoker [place] Physicians Never smoked tobacco [facility] Medications Ordered Filled Start Stop Current Ordering Indication Dosage Frequency Signature Comments Components Source Medication Medication Date Date Medication? Clinician (SIG) Name Name ketorolac 2022- No 30mg 30 mg, Unive rs (TORADOL) 7-14 07-14 Intramuscu ity of injection 01:00: 00:09 [place], ONCE, [place] 30 mg 00 :00 1 dose, On Medical [facility] Branch 10/08/22 at 2000, Routine HYDROcodone Yes 1{tbl} 1 tablet, Univers -acetaminop 7-13 Oral, ity of hen (NORCO 23:56: Q6HPRN, [place] 5) 5-325 mg 46 Starting Medi yokasta tablet 1 on [facility] Branch tablet 10/08/22 at 1856, Until Discontinu ed, Routine, Pain (scale 7-10) ibuprofen Yes [id number] 600mg Take 1 Univers 600 mg 7-13 tablet by ity of tablet 00:00: mouth [place] 00 every 6 Medical (six) Branch hours as needed for Pain (scale 4-6). lidocaine Yes [id number] 15mL Take 15 mL Univers 2% viscous 7-13 by mouth ity o f 2 % 00:00: every 4 [place] solution 00 (four) Medical hours as Branch needed for Oral mucosal pain. amoxicillin 2022- No [id number] 1{tbl} Take 1 Univers -clavulanat 7-13 07-24 tablet by it y of e 875-125 00:00: 04:59 mouth [place] mg per 00 :00 every 12 Medical tablet (twelve) Branch hours for 10 days. traMADoL 2021-03- No 50mg 50 mg, Univer s (ULTRAM) 2-20 12-20 Oral, ity of tablet 50 06:45: 06:04 ONCE, 1 [place] mg 00 :00 dose, On Medical [facility] Branch 03/17/22 at 0045, JESSY iopamidol 2021-03- No [id number] 78mL 78 mL, U nivers (ISOVUE 2-20 12-20 Intravenou ity o f 370-500 mL) 02:45: 02:45 s, ONCE, 1 [place] injection 00 :00 dose, On Medica l 78 mL Mon Branch 03/16/22 at 2045, Routine ketorolac 2021-03 No 30mg 30 mg, Unive rs (TORADOL) 2-20 12-20 Slow IV ity of injection 00:15: 00:58 Push, [place] 30 mg 00 :00 ONCE, 1 Medical dose, On Branch 03/16/22 at 1815, JESSY traMADoL 50 2021-03 Yes [id number] 50mg Take 1 Univ ers mg tablet 2-20 tablet by ity o f 00:00: mouth [place] 00 every 6 Medical (six) Branch hours as needed (pain). Indication s: acute pain ondansetron 2021-03 Yes [id number] 1-2 Un [place] 4 mg tablet 2-20 tablets ity o f 00:00: every 8 [place] 00 hours as Medical needed for Branch nausea traMADoL 50 2021-03 Yes [id number] 50mg Take 1 Univ ers mg tablet 2-20 tablet by ity o f 00:00: mouth [place] 00 every 6 Medical (six) Branch hours as needed (pain). Indication s: acute pain ondansetron 2021-03 Yes [id number] 1-2 Un [place] 4 mg tablet 2-20 tablets ity o f 00:00: every 8 [place] 00 hours as Medical needed for Branch nausea traMADoL 50 2021-03 Yes [id number] 50mg Take 1 Univ ers mg tablet 2-20 tablet by ity o f 00:00: mouth [place] 00 every 6 Medical (six) Branch hours as needed (pain). Indication s: acute pain ondansetron 2021-03 Yes [id number] 1-2 Un yolie 4 mg tablet 2-20 tablets ity o f 00:00: every 8 [place] 00 hours as Medical needed for Branch nausea NaCl 0.9% 2021-03- No 1000mL at 999 Uni vers (NS) bolus 2-20 12-20 mL/hr, ity of infusion 00:00: 03:00 1,000 mL, Flavio as 1,000 mL 00 :00 IV Medical Infusion, Branch ONCE, 1 dose, On Wed03/16/22 at 1800, JESSY famotidine 2021-03 No 20mg 20 mg, Univ ers (PEPCID 05-17 12-20 Slow IV ity of (PF)) 23:30: 00:58 Push, [place] injection 00 :00 ONCE, 1 Medical 20 mg dose, On Branch Wed03/16/22 at 1730, JESSY ondansetron 2021-03 No 8mg 8 mg, Slow Univers (ZOFRAN 05-17-20 IV Push, ity of (PF)) 23:30: 00:58 ONCE, 1 [place] injection 8 00 :00 dose, On Medi yokasta mg 03/16/22 at 1730, JESSY traMADoL 50 0 Yes [id number] 50mg Take 1 Univ ers mg tablet 7-09 tablet by ity o f 00:00: mouth [place] 00 every 4 Medical (four) Branch hours as needed for Pain (scale 7-10). Indication s: acute pain traMADoL 50 0 Yes [id number] 50mg Take 1 Univ ers mg tablet 7-09 tablet by ity o f 00:00: mouth [place] 00 every 4 Medical (four) Branch hours as needed for Pain (scale 7-10). Indication s: acute pain traMADoL 50 2020-0 Yes [id number] 50mg Take 1 Univ ers mg tablet 7-09 tablet by ity o f 00:00: mouth [place] 00 every 4 Medical (four) Branch hours as needed for Pain (scale 7-10). Indication s: acute pain tramadol 2018-0 Yes 50 mg = 1 Jacoby fransico hydrochlori 3-26 tab, PO, l de 50 MG 19:59: Q6H, PRN Barbie nn Oral Tablet 00 Pain Score 1-3, # 10 tab, 0 Refill(s) tramadol 2018-0 Yes 50 mg = 1 Jacoby fransico hydrochlori 3-26 tab, PO, l de 50 MG 19:59: Q6H, PRN Barbie nn Oral Tablet 00 Pain Score 1-3, # 10 tab, 0 Refill(s) tramadol Yes 50 mg = 1 Jacoby fransico hydrochlori 3-26 tab, PO, l de 50 MG 19:59: Q6H, PRN Barbie nn Oral Tablet 00 Pain Score 1-3, # 10 tab, 0 Refill(s) tramadol Yes 50 mg = 1 Jacoby fransico hydrochlori 3-26 tab, PO, l de 50 MG 19:59: Q6H, PRN Barbie nn Oral Tablet 00 Pain Score 1-3, # 10 tab, 0 Refill(s) tramadol Yes 50 mg = 1 Jacoby fransico hydrochlori 3-26 tab, PO, l de 50 MG 19:59: Q6H, PRN Barbie nn Oral Tablet 00 Pain Score 1-3, # 10 tab, 0 Refill(s) CitraNatal Yes 1 cap, PO, M emoria Romeo 3-26 Daily, # l oral 19:52: 90 cap, 0 [place] capsule 00 Refill(s), Pharmacy: [place] [id number] ibuprofen Yes 600 mg = 1 Me moria 600 mg oral 3-26 tab, PO, l tablet 19:52: Q6Hnow, # David n 00 60 tab, 0 Refill(s), Pharmacy: [place] [id number] Docusate Yes 100 mg = 1 Mem oria Sodium 100 3-26 cap, PO, l MG Oral 19:52: BID, PRN David n Capsule 00 Constipati on, # 20 cap, 0 Refill(s), Pharmacy: [place] [address] CitraNatal Yes 1 cap, PO, M emoria Romeo 3-26 Daily, # l oral 19:52: 90 cap, 0 [place] capsule 00 Refill(s), Pharmacy: [place] [id number] ibuprofen Yes 600 mg = 1 Me moria 600 mg oral 3-26 tab, PO, l tablet 19:52: Q6Hnow, # David n 00 60 tab, 0 Refill(s), Pharmacy: [place] [id number] Docusate Yes 100 mg = 1 Mem oria Sodium 100 3-26 cap, PO, l MG Oral 19:52: BID, PRN David n Capsule 00 Constipati on, # 20 cap, 0 Refill(s), Pharmacy: [place] [id number] CitraNatal Yes 1 cap, PO, M emoria Romeo 3-26 Daily, # l oral 19:52: 90 cap, 0 [place] capsule 00 Refill(s), Pharmacy: [place] [id number] ibuprofen Yes 600 mg = 1 Me moria 600 mg oral 3-26 tab, PO, l tablet 19:52: Q6Hnow, # David n 00 60 tab, 0 Refill(s), Pharmacy: [place] [id number] Docusate Yes 100 mg = 1 Mem oria Sodium 100 3-26 cap, PO, l MG Oral 19:52: BID, PRN David n Capsule 00 Constipati on, # 20 cap, 0 Refill(s), Pharmacy: [place] [address] CitraNatal Yes 1 cap, PO, M emoria Romeo 3-26 Daily, # l oral 19:52: 90 cap, 0 [place] capsule 00 Refill(s), Pharmacy: [place] [id number] ibuprofen Yes 600 mg = 1 Me moria 600 mg oral 3-26 tab, PO, l tablet 19:52: Q6Hnow, # David n 00 60 tab, 0 Refill(s), Pharmacy: [place] [id number] Docusate Yes 100 mg = 1 Mem oria Sodium 100 3-26 cap, PO, l MG Oral 19:52: BID, PRN David n Capsule 00 Constipati on, # 20 cap, 0 Refill(s), Pharmacy: [place] [id number] CitraNatal Yes 1 cap, PO, M emoria Romeo 3-26 Daily, # l oral 19:52: 90 cap, 0 [place] capsule 00 Refill(s), Pharmacy: [place] [id number] ibuprofen Yes 600 mg = 1 Me moria 600 mg oral 3-26 tab, PO, l tablet 19:52: Q6Hnow, # David n 00 60 tab, 0 Refill(s), Pharmacy: [place] [id number] Docusate Yes 100 mg = 1 Mem oria Sodium 100 3-26 cap, PO, l MG Oral 19:52: BID, PRN David n Capsule 00 Constipati on, # 20 cap, 0 Refill(s), Pharmacy: [facility] [id number] Tylenol No Notes: Do Memor ia 3-25 not exceed l 12:38: 4 gm/day. Wes 00 (Same as: Tylenol) Tylenol No Notes: Do Memor ia 3-25 not exceed l 12:38: 4 gm/day. [place] 00 (Same as: Tylenol) Tylenol No Notes: Do Memor ia 3-25 not exceed l 12:38: 4 gm/day. [place] 00 (Same as: Tylenol) Tylenol No Notes: Do Memor ia 3-25 not exceed l 12:38: 4 gm/day. [place] 00 (Same as: Tylenol) Tylenol No Notes: Do Memor ia 3-25 not exceed l 12:38: 4 gm/day. [place] 00 (Same as: Tylenol) Tramadol No Notes: Not Mem oria 3-24 to exceed l 17:00: 400mg/day. [place] (Same As: Ultram) Tramadol No Notes: Not Mem oria 3-24 to exceed l 17:00: 400mg/day. [place] (Same As: Ultram) Tramadol No Notes: Not Mem oria 3-24 to exceed l 17:00: 400mg/day. [place] (Same As: Ultram) Tramadol No Notes: Not Mem oria 3-24 to exceed l 17:00: 400mg/day. [place] (Same As: Ultram) Tramadol No Notes: Not Mem oria 3-24 to exceed l 17:00: 400mg/day. [place] 00 (Same As: Ultram) 0 No 1 tab, Memoria Multivitami 3-24 Route: PO, l ns oral 14:00: Drug Form: Herm kiran tablet 00 TAB, Dosing Weight 98.636, kg, Daily, Start date: 06/19/18 9:00:00 CDT, Duration: 30 day, Stop date: 07/18/18 9:00:00 CDT 0 No 1 tab, Memoria Multivitami 3-24 Route: PO, l ns oral 14:00: Drug Form: Herm kiran tablet 00 TAB, Dosing Weight 98.636, kg, Daily, Start date: 06/19/18 9:00:00 CDT, Duration: 30 day, Stop date: 07/18/18 9:00:00 CDT 2019-0 No 1 tab, Memoria Multivitami 3-24 Route: PO, l ns oral 14:00: Drug Form: Herm kiran tablet 00 TAB, Dosing Weight 98.636, kg, Daily, Start date: 06/19/18 9:00:00 CDT, Duration: 30 day, Stop date: 07/18/18 9:00:00 CDT 2019-0 No 1 tab, Memoria Multivitami 3-24 Route: PO, l ns oral 14:00: Drug Form: Herm kiran tablet 00 TAB, Dosing Weight 98.636, kg, Daily, Start date: 06/19/18 9:00:00 CDT, Duration: 30 day, Stop date: 07/18/18 9:00:00 CDT 2018-0 No 1 tab, Memoria Multivitami 3-24 Route: PO, l ns oral 14:00: Drug Form: Herm kiran tablet 00 TAB, Dosing Weight 98.636, kg, Daily, Start date: 06/19/18 9:00:00 CDT, Duration: 30 day, Stop date: 07/18/18 9:00:00 CDT Naloxone 2019-0 No Notes: Memoria 3-24 Same as l 13:00: Narcan Naloxone 2018-0 No Notes: Memoria 3-24 Same as l 13:00: Narcan Naloxone 2019-0 No Notes: Memoria 3-24 Same as l 13:00: Narcan Naloxone 2019-0 No Notes: Memoria 3-24 Same as l 13:00: Narcan Naloxone 2019-0 No Notes: Memoria 3-24 Same as l 13:00: Narcan Meperidine 2018-0 No Notes: Memor ia 3-24 (Same as: l 12:27: Demerol) "Use Precaution in Elderly, Seizure disorders, and Renal impairment " Diphenhydra 2018- No Notes: Jacoby fransico mine 3-24 (Same as: l 12:27: Benadryl) [place] 00 Oxycodone No Notes: Memori a Hydrochlori 3-24 (Same as: l de 5 MG 12:27: Roxicodone Herm kiran Oral Tablet 00 ) Ondansetron No Notes: Jacoby fransico 3-24 (Same as: l 12:27: Zofran) [place] 00 MEDICATION WASTE Product Size: 4 mg Product Wasted: ___ mg Acetaminoph No Notes: Max Memoria en 3-24 acetaminop l 12:27: hen 4000 [place] 00 mg/day (4 gm/day). (Same as: Tylenol Extra Strength) Ibuprofen No Notes: Memori a 3-24 (Same as: l 12:27: Motrin) [place] 00 "Do Not Crush" Take with food. Meperidine No Notes: Memor ia 3-24 (Same as: l 12:27: Demerol) Wes "Use Precaution in Elderly, Seizure disorders, and Renal impairment " Diphenhydra No Notes: Jacoby fransico mine 3-24 (Same as: l 12:27: Benadryl) [place] Oxycodone No Notes: Memori a Hydrochlori 3-24 (Same as: l de 5 MG 12:27: Roxicodone Herm kiran Oral Tablet ) Ondansetron No Notes: Jacoby fransico 3-24 (Same as: l 12:27: Zofran) [place] 00 MEDICATION WASTE Product Size: 4 mg Product Wasted: ___ mg Acetaminoph No Notes: Max Memoria en 3-24 acetaminop l 12:27: hen 4000 [place] 00 mg/day (4 gm/day). (Same as: Tylenol Extra Strength) Ibuprofen No Notes: Memori a 3-24 (Same as: l 12:27: Motrin) [place] 00 "Do Not Crush" Take with food. Meperidine No Notes: Memor ia 3-24 (Same as: l 12:27: Demerol) Wes "Use Precaution in Elderly, Seizure disorders, and Renal impairment " Diphenhydra No Notes: Jacoby fransico mine 3-24 (Same as: l 12:27: Benadryl) [place] Oxycodone No Notes: Memori a Hydrochlori 3-24 (Same as: l de 5 MG 12:27: Roxicodone Herm kiran Oral Tablet 00 ) Ondansetron No Notes: Jacoby fransico 3-24 (Same as: l 12:27: Zofran) [place] MEDICATION WASTE Product Size: 4 mg Product Wasted: ___ mg Acetaminoph No Notes: Max Memoria en 3-24 acetaminop l 12:27: hen 4000 [place] 00 mg/day (4 gm/day). (Same as: Tylenol Extra Strength) Ibuprofen No Notes: Memori a 3-24 (Same as: l 12:27: Motrin) Wes "Do Not Crush" Take with food. Meperidine No Notes: Memor ia 3-24 (Same as: l 12:27: Demerol) [place] "Use Precaution in Elderly, Seizure disorders, and Renal impairment " Diphenhydra No Notes: Jacoby fransico mine 3-24 (Same as: l 12:27: Benadryl) Wes Oxycodone No Notes: Memori a Hydrochlori 3-24 (Same as: l de 5 MG 12:27: Roxicodone Herm kiran Oral Tablet 00 ) Ondansetron No Notes: Jacoby fransico 3-24 (Same as: l 12:27: Zofran) Wes MEDICATION WASTE Product Size: 4 mg Product Wasted: ___ mg Acetaminoph No Notes: Max Memoria en 3-24 acetaminop l 12:27: hen 4000 [place] 00 mg/day (4 gm/day). (Same as: Tylenol Extra Strength) Ibuprofen No Notes: Memori a 3-24 (Same as: l 12:27: Motrin) [place] "Do Not Crush" Take with food. Meperidine No Notes: Memor ia 3-24 (Same as: l 12:27: Demerol) Wes "Use Precaution in Elderly, Seizure disorders, and Renal impairment " Diphenhydra No Notes: Jacoby fransico mine 3-24 (Same as: l 12:27: Benadryl) [place] 00 Oxycodone No Notes: Memori a Hydrochlori 3-24 (Same as: l de 5 MG 12:27: Roxicodone Herm kiran Oral Tablet ) Ondansetron No Notes: Jacoby fransico 3-24 (Same as: l 12:27: Zofran) Wes MEDICATION WASTE Product Size: 4 mg Product Wasted: ___ mg Acetaminoph No Notes: Max Memoria en -24 acetaminop l 12:27: hen 4000 [place] 00 mg/day (4 gm/day). (Same as: Tylenol Extra Strength) Ibuprofen No Notes: Memori a 3-24 (Same as: l 12:27: Motrin) [place] 00 "Do Not Crush" Take with food. RhoGam (MAY 2018 Yes 300 Memori a Charting) 3-23 microgram, l 21:44: Route: IM, Wes 00 ONCE, Dosing Weight 98.636, kg, Start date: 06/18/18 16:44:00 CDT, Stop date: 06/18/18 16:44:00 CDT RhoGam (MAY 2018 Yes 300 Memori a Charting) 3-23 microgram, l 21:44: Route: IM, Wes 00 ONCE, Dosing Weight 98.636, kg, Start date: 06/18/18 16:44:00 CDT, Stop date: 06/18/18 16:44:00 CDT RhoGam (MAY 2018 Yes 300 Memori a Charting) 3-23 microgram, l 21:44: Route: IM, [place] 00 ONCE, Dosing Weight 98.636, kg, Start date: 06/18/18 16:44:00 CDT, Stop date: 06/18/18 16:44:00 CDT RhoGam (MAY 2018 Yes 300 Memori a Charting) 3-23 microgram, l 21:44: Route: IM, Wes 00 ONCE, Dosing Weight 98.636, kg, Start date: 06/18/18 16:44:00 CDT, Stop date: 06/18/18 16:44:00 CDT RhoGam (MAY 2018 Yes 300 Memori a Charting) 3-23 microgram, l 21:44: Route: IM, Wes 00 ONCE, Dosing Weight 98.636, kg, Start date: 06/18/18 16:44:00 CDT, Stop date: 06/18/18 16:44:00 CDT Benadryl No Notes: Memoria 3-23 (Same as: l 19:21: Benadryl) Benadryl No Notes: Memoria 3-23 (Same as: l 19:21: Benadryl) Benadryl No Notes: Memoria 3-23 (Same as: l 19:21: Benadryl) Benadryl No Notes: Memoria 3-23 (Same as: l 19:21: Benadryl) [place] 00 Benadryl No Notes: Memoria 3-23 (Same as: l 19:21: Benadryl) Wes 00 Ibuprofen No Notes: Memori a 3-23 (Same as: l 19:00: Motrin) [place] "Do Not Crush" Take with food. --R II No Notes: Memoria 3-23 (Same as: l 19:00: --R II) [place] (measles-m umps-rubel la virus vaccine 0.5 ml INJ VL) WASTE: F/P - Red; E -Red GIVE PRIOR TO DISCHARGE Ibuprofen No Notes: Memori a 3-23 (Same as: l 19:00: Motrin) Wes "Do Not Crush" Take with food. --R II No Notes: Memoria 3-23 (Same as: l 19:00: -M-R II) [place] 00 (measles-m umps-rubel la virus vaccine 0.5 ml INJ VL) WASTE: F/P - Red; E -Red GIVE PRIOR TO DISCHARGE Ibuprofen No Notes: Memori a 3-23 (Same as: l 19:00: Motrin) [place] "Do Not Crush" Take with food. M-M-R II No Notes: Memoria 3-23 (Same as: l 19:00: --R II) [place] 00 (measles-m umps-rubel la virus vaccine 0.5 ml INJ VL) WASTE: F/P - Red; E -Red GIVE PRIOR TO DISCHARGE Ibuprofen No Notes: Memori a 3-23 (Same as: l 19:00: Motrin) Wes 00 "Do Not Crush" Take with food. [facility]-R II No Notes: Memoria 3-23 (Same as: l 19:00: --R II) [place] 00 (measles-m umps-rubel la virus vaccine 0.5 ml INJ VL) WASTE: F/P - Red; E -Red GIVE PRIOR TO DISCHARGE Ibuprofen No Notes: Memori a 3-23 (Same as: l 19:00: Motrin) Wes 00 "Do Not Crush" Take with food. [facility]-R II No Notes: Memoria 3-23 (Same as: l 19:00: [facility]-R II) Wes 00 (measles-m umps-rubel la virus vaccine 0.5 ml INJ VL) WASTE: F/P - Red; E -Red GIVE PRIOR TO DISCHARGE propofol No Route: IV, Mem oria (ANES) 3-23 Drug form: l 18:12: INJ, ONCE, [place] 00 Stop date: 06/18/18 13:12:00 CDT propofol No Route: IV, Mem oria (ANES) 3-23 Drug form: l 18:12: INJ, ONCE, Wes 00 Stop date: 06/18/18 13:12:00 CDT propofol No Route: IV, Mem oria (ANES) 3-23 Drug form: l 18:12: INJ, ONCE, [place] Stop date: 06/18/18 13:12:00 CDT propofol No Route: IV, Mem oria (ANES) 3-23 Drug form: l 18:12: INJ, ONCE, Wes 00 Stop date: 06/18/18 13:12:00 CDT propofol No Route: IV, Mem oria (ANES) 3-23 Drug form: l 18:12: INJ, ONCE, Stop date: 06/18/18 13:12:00 CDT zolpidem No Notes: Memoria - (Same As: l 18:10: Ambien) Acetaminoph No Notes: Do M emoria en 06-18 not exceed l 18:10: 4 gm/day. (Same [...] date: 07/18/18 13:09:00 CDT, 2.09, m2 Oxytocin No 30 unit, Memor ia 23 500 mL, l 18:10: Rate: 42 ml/hr, Infuse over: 11.9 hr, Dosing Weight 98.636, kg, Route: IV, Total Volume: 500 mL, Start date: 06/18/18 13:10:00 CDT, Duration: 2 day, Stop date: 06/20/18 13:09:00 CDT, Replace Every: 11.9 hr Acetaminoph No Notes: Jacoby fransico en 325 MG / 06-18 (Same as: l Hydrocodone 18:10: [place] Barbie nn Bitartrate 00 325/5) Do 5 MG Oral not exceed Tablet 4gm/day of acetaminop hen. Acetaminoph No Notes: Do M emoria en 325 MG / 06-18 not exceed l Hydrocodone 18:10: 4gm/day of [place] Bitartrate 00 acetaminop 10 MG Oral hen. (Same Tablet as: [place] 325/10) zolpidem No Notes: Memoria 06-18 (Same As: l 18:10: Ambien) Acetaminoph No Notes: Do M emoria en 06-18 not exceed l 18:10: 4 gm/day. Wes 00 (Same as: Tylenol) Simethicone No Notes: Jacoby fransico 06-18 (Same as: l 18:10: Mylicon) lanolin No [...] Cepacol Lozenges) Bisacodyl No Notes: Memori a 06-18 (Same As: l 18:10: Dulcolax, [place] 00 Bisco-Lax) Docusate No Notes: Memoria 06-18 (Same as: l 18:10: Colace) (Do Not Crush) Lactated No 1,000 mL, Jacoby fransico Ringers IV 3-23 Rate: 100 l 1,000 mL 18:10: ml/hr, [place] Infuse over: 10 hr, Route: IV, Dosing Weight 98.636 kg, Total Volume: 1,000, Start date: 06/18/18 13:10:00 CDT, Duration: 30 day, Stop date: 07/18/18 13:09:00 CDT, 2.09, m2 Oxytocin 2019- No 30 unit, Memor ia 3-23 500 mL, l 18:10: Rate: 42 Wes 00 ml/hr, Infuse over: 11.9 hr, Dosing Weight 98.636, kg, Route: IV, Total Volume: 500 mL, Start date: 06/18/18 13:10:00 CDT, Duration: 2 day, Stop date: 06/20/18 13:09:00 CDT, Replace Every: 11.9 hr Acetaminoph No Notes: Jacoby fransico en 325 MG / -23 (Same as: l Hydrocodone 18:10: [place] Barbie nn Bitartrate 00 325/5) Do 5 MG Oral not exceed Tablet 4gm/day of acetaminop hen. Acetaminoph No Notes: Do M emoria en 325 MG / 3-23 not exceed l Hydrocodone 18:10: 4gm/day of Wes Bitartrate 00 acetaminop 10 MG Oral hen. (Same Tablet as: [place] 325/10) zolpidem No Notes: Memoria 3-23 (Same As: l 18:10: Ambien) Wes Acetaminoph No Notes: Do M emoria en 3-23 not exceed l 18:10: 4 gm/day. Wes (Same as: Tylenol) Simethicone No Notes: Jacoby fransico 3-23 (Same as: l 18:10: Mylicon) [place] lanolin No 1 appl, Memoria topical 3-23 Route: l cream 18:10: TOP, PRN, [place] 00 Drug form: OINT, PRN Other -See Comment, Start date: 06/18/18 13:10:00 CDT, Duration: 30 day, Stop date: 07/18/18 13:09:00 CDT Benzocaine No Notes: Memor ia / Menthol 06-18 Cepacol l 18:10: lozenges [place] 00 Dispense 1 box = 16 lozenges (Same As: Cepacol Lozenges) Bisacodyl No Notes: Memori a 06-18 (Same As: l 18:10: Dulcolax, Wes 00 Bisco-Lax) Docusate No Notes: Memoria 06-18 (Same as: l 18:10: Colace) Wes 00 (Do Not Crush) Lactated No 1,000 mL, Jacoby fransico Ringers IV 06-18 Rate: 100 l 1,000 mL 18:10: ml/hr, [place] Infuse over: 10 hr, Route: IV, Dosing Weight 98.636 kg, Total Volume: 1,000, Start date: 06/18/18 13:10:00 CDT, Duration: 30 day, Stop date: 07/18/18 13:09:00 CDT, 2.09, m2 Oxytocin No 30 unit, Memor ia 06-18 500 mL, l 18:10: Rate: 42 [place] 00 ml/hr, Infuse over: 11.9 hr, Dosing Weight 98.636, kg, Route: IV, Total Volume: 500 mL, Start date: 06/18/18 13:10:00 CDT, Duration: 2 day, Stop date: 06/20/18 13:09:00 CDT, Replace Every: 11.9 hr Acetaminoph No Notes: Jacoby fransico en 325 MG / 06-18 (Same as: l Hydrocodone 18:10: [place] Barbie nn Bitartrate 00 325/5) Do 5 MG Oral not exceed Tablet 4gm/day of acetaminop hen. Acetaminoph No Notes: Do M emoria en 325 MG / 06-18 not exceed l Hydrocodone 18:10: 4gm/day of [place] Bitartrate 00 acetaminop 10 MG Oral hen. (Same Tablet as: [place] 325/10) zolpidem No Notes: Memoria 06-18 (Same As: l 18:10: Ambien) Wes 00 Acetaminoph No Notes: Do M emoria en 3-23 not exceed l 18:10: 4 gm/day. Wes 00 (Same as: Tylenol) Simethicone No Notes: Jacoby fransico 3-23 (Same as: l 18:10: Mylicon) lanolin 2019- No 1 appl, Memoria topical 06-18 Route: [...] Rate: 100 l 1,000 mL 18:10: ml/hr, Wes 00 Infuse over: 10 hr, Route: IV, Dosing Weight 98.636 kg, Total Volume: 1,000, Start date: 06/18/18 13:10:00 CDT, Duration: 30 day, Stop date: 07/18/18 13:09:00 CDT, 2.09, m2 Oxytocin 2019- No 30 unit, Memor ia 3-23 500 mL, l 18:10: Rate: 42 [place] 00 ml/hr, Infuse over: 11.9 hr, Dosing Weight 98.636, kg, Route: IV, Total Volume: 500 mL, Start date: 06/18/18 13:10:00 CDT, Duration: 2 day, Stop date: 06/20/18 13:09:00 CDT, Replace Every: 11.9 hr Acetaminoph No Notes: Jacoby fransico en 325 MG / 06-18 (Same as: l Hydrocodone 18:10: [place] Barbie nn Bitartrate 00 325/5) Do 5 MG Oral not exceed Tablet 4gm/day of acetaminop hen. Acetaminoph No Notes: Do M emoria en 325 MG / 06-18 not exceed l Hydrocodone 18:10: 4gm/day of [place] Bitartrate 00 acetaminop 10 MG Oral hen. (Same Tablet as: [place] 325/10) zolpidem No Notes: Memoria 3-23 (Same As: l 18:10: Ambien) Acetaminoph No Notes: Do M emoria en - not exceed l 18:10: 4 gm/day. (Same as: Tylenol) Simethicone No Notes: Jacoby fransico 3-23 (Same as: l 18:10: Mylicon) lanolin No [...] 18:10: Dulcolax, Bisco-Lax) Docusate No Notes: Memoria 3-23 (Same as: l 18:10: Colace) (Do Not Crush) Lactated No 1,000 mL, Jacoby fransico Ringers IV 06-18 Rate: 100 l 1,000 mL 18:10: ml/hr, Infuse over: 10 hr, Route: IV, Dosing Weight 98.636 kg, Total Volume: 1,000, Start date: 06/18/18 13:10:00 CDT, Duration: 30 day, Stop date: 07/18/18 13:09:00 CDT, 2.09, m2 Oxytocin 2018- No 30 unit, Memor ia 3-23 500 mL, l 18:10: Rate: 42 [place] 00 ml/hr, Infuse over: 11.9 hr, Dosing Weight 98.636, kg, Route: IV, Total Volume: 500 mL, Start date: 06/18/18 13:10:00 CDT, Duration: 2 day, Stop date: 06/20/18 13:09:00 CDT, Replace Every: 11.9 hr Acetaminoph No Notes: Jacoby fransico en 325 MG / 3-23 (Same as: l Hydrocodone 18:10: [place] Barbie nn Bitartrate 00 325/5) Do 5 MG Oral not exceed Tablet 4gm/day of acetaminop hen. Acetaminoph No Notes: Do M emoria en 325 MG / 3-23 not exceed l Hydrocodone 18:10: 4gm/day of [place] Bitartrate 00 acetaminop 10 MG Oral hen. (Same Tablet as: [place] 325/10) methylergon No Route: IM, Memoria ovine 3-23 Drug form: l (ANES) 17:37: INJ, ONCE, Barbie nn 00 Stop date: 06/18/18 12:37:00 CDT methylergon No Route: IM, Memoria ovine 3-23 Drug form: l (ANES) 17:37: INJ, ONCE, Barbie nn Stop date: 06/18/18 12:37:00 CDT methylergon No Route: IM, Memoria ovine 3-23 Drug form: l (ANES) 17:37: INJ, ONCE, Barbie nn Stop date: 06/18/18 12:37:00 CDT methylergon No Route: IM, Memoria ovine 3-23 Drug form: l (ANES) 17:37: INJ, ONCE, Barbie nn Stop date: 06/18/18 12:37:00 CDT methylergon No Route: IM, Memoria ovine 3-23 Drug form: l (ANES) 17:37: INJ, ONCE, Barbie nn Stop date: 06/18/18 12:37:00 CDT esmolol No Route: IV, Jacoby fransico (ANES) 3-23 Drug form: l 17:27: INJ, ONCE, [place] 00 Stop date: 06/18/18 12:27:00 CDT ketAMINE 2019-0 No Route: IV, Mem oria (ANES) 3-23 Drug form: l 17:27: INJ, ONCE, [place] 00 Stop date: 06/18/18 12:27:00 CDT midazolam 2019-0 No Route: IV, Me moria (ANES) 3-23 Drug form: l 17:27: SOLN, [place] ONCE, Stop date: 06/18/18 12:27:00 CDT esmolol 2019-0 No Route: IV, Jacoby fransico (ANES) 3-23 Drug form: l 17:27: INJ, ONCE, Stop date: 06/18/18 12:27:00 CDT ketAMINE 2019-0 No Route: IV, Mem oria (ANES) 3-23 Drug form: l 17:27: INJ, ONCE, Stop date: 06/18/18 12:27:00 CDT midazolam 2019-0 No Route: IV, Me moria (ANES) 3-23 Drug form: l 17:27: SOLN, [place] 00 ONCE, Stop date: 06/18/18 12:27:00 CDT esmolol 2019-0 No Route: IV, Jacoby fransico (ANES) 3-23 Drug form: l 17:27: INJ, ONCE, Stop date: 06/18/18 12:27:00 CDT esmolol 2019-0 No Route: IV, Jacoby fransico (ANES) 3-23 Drug form: l 17:27: INJ, ONCE, Stop date: 06/18/18 12:27:00 CDT ketAMINE 2019-0 No Route: IV, Mem oria (ANES) 3-23 Drug form: l 17:27: INJ, ONCE, Stop date: 06/18/18 12:27:00 CDT midazolam 2019-0 No Route: IV, Me moria (ANES) 3-23 Drug form: l 17:27: SOLN, [place] ONCE, Stop date: 06/18/18 12:27:00 CDT ketAMINE 2019-0 No Route: IV, Mem oria (ANES) 3-23 Drug form: l 17:27: INJ, ONCE, Stop date: 06/18/18 12:27:00 CDT midazolam 2019-0 No Route: IV, Me moria (ANES) 3-23 Drug form: l 17:27: SOLN, [place] ONCE, Stop date: 06/18/18 12:27:00 CDT esmolol 2019-0 No Route: IV, Jacoby fransico (ANES) 3-23 Drug form: l 17:27: INJ, ONCE, Stop date: 06/18/18 12:27:00 CDT ketAMINE 2019-0 No Route: IV, Mem oria (ANES) 3-23 Drug form: l 17:27: INJ, ONCE, Stop date: 06/18/18 12:27:00 CDT midazolam 2019-0 No Route: IV, Me moria (ANES) 3-23 Drug form: l 17:27: SOLN, ONCE, Stop date: 06/18/18 12:27:00 CDT fentaNYL 2019-0 No Route: IV, Mem oria (ANES) 3-23 Drug form: l 17:17: INJ, ONCE, Stop date: 06/18/18 12:17:00 CDT fentaNYL 2019-0 No Route: IV, Mem oria (ANES) 3-23 Drug form: l 17:17: INJ, ONCE, Stop date: 06/18/18 12:17:00 CDT fentaNYL 2019-0 No Route: IV, Mem oria (ANES) 3-23 Drug form: l 17:17: INJ, ONCE, Stop date: 06/18/18 12:17:00 CDT fentaNYL 2019-0 No Route: IV, Mem oria (ANES) 3-23 Drug form: l 17:17: INJ, ONCE, Stop date: 06/18/18 12:17:00 CDT fentaNYL 2019-0 No Route: IV, Mem oria (ANES) 3-23 Drug form: l 17:17: INJ, ONCE, Stop date: 06/18/18 12:17:00 CDT Pitocin 2019-0 No Route: IV, Jacoby fransico (ANES) 3-23 Drug form: l 17:12: SOLN, [place] 00 ONCE, Stop date: 06/18/18 12:12:00 CDT Pitocin 2019-0 No Route: IV, Jacoby fransico (ANES) 3-23 Drug form: l 17:12: SOLN, [place] 00 ONCE, Stop date: 06/18/18 12:12:00 CDT Pitocin 2019-0 No Route: IV, Jacoby fransico (ANES) 3-23 Drug form: l 17:12: SOLN, [place] 00 ONCE, Stop date: 06/18/18 12:12:00 CDT Pitocin 2019-0 No Route: IV, Jacoby fransico (ANES) 3-23 Drug form: l 17:12: SOLN, [place] ONCE, Stop date: 06/18/18 12:12:00 CDT Pitocin 2019-0 No Route: IV, Jacoby fransico (ANES) 3-23 Drug form: l 17:12: SOLN, [place] ONCE, Stop date: 06/18/18 12:12:00 CDT carboprost 2019-0 No Route: IM, M emoria (ANES) 3-23 Drug form: l 17:07: INJ, ONCE, Stop date: 06/18/18 12:07:00 CDT tranexamic 2019-0 No Route: IV, M emoria acid (ANES) 3-23 Drug form: l 17:07: INJ, ONCE, Stop date: 06/18/18 12:07:00 CDT carboprost 2019-0 No Route: IM, M emoria (ANES) 3-23 Drug form: l 17:07: INJ, ONCE, Stop date: 06/18/18 12:07:00 CDT tranexamic 2019-0 No Route: IV, M emoria acid (ANES) 3-23 Drug form: l 17:07: INJ, ONCE, Stop date: 06/18/18 12:07:00 CDT carboprost 2019-0 No Route: IM, M emoria (ANES) 3-23 Drug form: l 17:07: INJ, ONCE, Stop date: 06/18/18 12:07:00 CDT tranexamic 2019-0 No Route: IV, M emoria acid (ANES) 3-23 Drug form: l 17:07: INJ, ONCE, Stop date: 06/18/18 12:07:00 CDT carboprost No Route: IM, M emoria (ANES) 3-23 Drug form: l 17:07: INJ, ONCE, Stop date: 06/18/18 12:07:00 CDT tranexamic No Route: IV, M emoria acid (ANES) 3-23 Drug form: l 17:07: INJ, ONCE, Stop date: 06/18/18 12:07:00 CDT carboprost No Route: IM, M emoria (ANES) 3-23 Drug form: l 17:07: INJ, ONCE, Stop date: 06/18/18 12:07:00 CDT tranexamic No Route: IV, M emoria acid (ANES) 3-23 Drug form: l 17:07: INJ, ONCE, Stop date: 06/18/18 12:07:00 CDT Atropine No Notes: Memoria Sulfate 3-23 (Same As: l 0.025 MG / 17:06: Lomotil) Her osorio Diphenoxyla 00 MAX Adult te dose = 8 Hydrochlori tabs/day de 2.5 MG Oral Tablet [Lomotil] Atropine No Notes: Memoria Sulfate 3-23 (Same As: l 0.025 MG / 17:06: Lomotil) Her osorio Diphenoxyla 00 MAX Adult te dose = 8 Hydrochlori tabs/day de 2.5 MG Oral Tablet [Lomotil] Atropine No Notes: Memoria Sulfate 3-23 (Same As: l 0.025 MG / 17:06: Lomotil) Her osorio Diphenoxyla 00 MAX Adult te dose = 8 Hydrochlori tabs/day de 2.5 MG Oral Tablet [Lomotil] Atropine No Notes: Memoria Sulfate 3-23 (Same As: l 0.025 MG / 17:06: Lomotil) Her osorio Diphenoxyla 00 MAX Adult te dose = 8 Hydrochlori tabs/day de 2.5 MG Oral Tablet [Lomotil] Atropine No Notes: Memoria Sulfate 3-23 (Same As: l 0.025 MG / 17:06: Lomotil) Her osorio Diphenoxyla 00 MAX Adult te dose = 8 Hydrochlori tabs/day de 2.5 MG Oral Tablet [Lomotil] morphine No Route: Memoria Sulfate 3-23 EPIDURAL, l (ANES) 16:57: Drug form: Barbie nn 00 INJ, ONCE, Stop date: 06/18/18 11:57:00 CDT morphine No Route: Memoria Sulfate 3-23 EPIDURAL, l (ANES) 16:57: Drug form: Barbie nn 00 INJ, ONCE, Stop date: 06/18/18 11:57:00 CDT morphine No Route: Memoria Sulfate 3-23 EPIDURAL, l (ANES) 16:57: Drug form: Barbie nn 00 INJ, ONCE, Stop date: 06/18/18 11:57:00 CDT morphine No Route: Memoria Sulfate 3-23 EPIDURAL, l (ANES) 16:57: Drug form: Barbie nn 00 INJ, ONCE, Stop date: 06/18/18 11:57:00 CDT morphine No Route: Memoria Sulfate 3-23 EPIDURAL, l (ANES) 16:57: Drug form: Barbie nn 00 INJ, ONCE, Stop date: 06/18/18 11:57:00 CDT ropivacaine No Route: IV, Memoria 1% (ANES) 3-23 Drug Form: l 16:47: INJ, ONCE, [place] 00 Stop date: 06/18/18 11:47:00 CDT ondansetron No Route: IV, Memoria (ANES) 3-23 Drug form: l 16:47: INJ, ONCE, [place] 00 Stop date: 06/18/18 11:47:00 CDT phenylephri No Route: Jacoby fransico ne (ANES) 3-23 IVP, Drug l 16:47: form: INJ, [place] 00 ONCE, Stop date: 06/18/18 11:47:00 CDT metoclopram No Route: IV, Memoria loida (ANES) 3-23 Drug form: l 16:47: INJ, ONCE, [place] 00 Stop date: 06/18/18 11:47:00 CDT sodium 2019-0 No Route: PO, Memor ia citrate 3- Drug Form: l (ANES) 16:47: INJ, ONCE, Stop date: 06/18/18 11:47:00 CDT ropivacaine 2019-0 No Route: IV, Memoria 1% (ANES) 3- Drug Form: l 16:47: INJ, ONCE, Stop date: 06/18/18 11:47:00 CDT ondansetron 2019-0 No Route: IV, Memoria (ANES) 3- Drug form: l 16:47: INJ, ONCE, Stop date: 06/18/18 11:47:00 CDT phenylephri 2018-0 No Route: Jacoby fransico ne (ANES) 3- IVP, Drug l 16:47: form: INJ, ONCE, Stop date: 06/18/18 11:47:00 CDT metoclopram 2018-0 No Route: IV, Memoria loida (ANES) 3- Drug form: l 16:47: INJ, ONCE, Stop date: 06/18/18 11:47:00 CDT sodium 2019-0 No Route: PO, Memor ia citrate - Drug Form: l (ANES) 16:47: INJ, ONCE, Stop date: 06/18/18 11:47:00 CDT ropivacaine 2018-0 No Route: IV, Memoria 1% (ANES) 3- Drug Form: l 16:47: INJ, ONCE, Stop date: 06/18/18 11:47:00 CDT ondansetron 2019-0 No Route: IV, Memoria (ANES) 3- Drug form: l 16:47: INJ, ONCE, Stop date: 06/18/18 11:47:00 CDT phenylephri 2019-0 No Route: Jacoby fransico ne (ANES) 3- IVP, Drug l 16:47: form: INJ, ONCE, Stop date: 06/18/18 11:47:00 CDT metoclopram 2019-0 No Route: IV, Memoria loida (ANES) 3- Drug form: l 16:47: INJ, ONCE, Stop date: 06/18/18 11:47:00 CDT sodium 2019-0 No Route: PO, Memor ia citrate 3- Drug Form: l (ANES) 16:47: INJ, ONCE, Barbie Stop date: 06/18/18 11:47:00 CDT ropivacaine 2019-0 No Route: IV, Memoria 1% (ANES) 3- Drug Form: l 16:47: INJ, ONCE, Stop date: 06/18/18 11:47:00 CDT ondansetron 2019-0 No Route: IV, Memoria (ANES) 3- Drug form: l 16:47: INJ, ONCE, Stop date: 06/18/18 11:47:00 CDT phenylephri 2019-0 No Route: Jacoby fransico ne (ANES) 3- IVP, Drug l 16:47: form: INJ, ONCE, Stop date: 06/18/18 11:47:00 CDT metoclopram 2019-0 No Route: IV, Memoria loida (ANES) 3- Drug form: l 16:47: INJ, ONCE, Stop date: 06/18/18 11:47:00 CDT sodium 2019-0 No Route: PO, Memor ia citrate - Drug Form: l (ANES) 16:47: INJ, ONCE, Stop date: 06/18/18 11:47:00 CDT ropivacaine 2019-0 No Route: IV, Memoria 1% (ANES) 3- Drug Form: l 16:47: INJ, ONCE, Stop date: 06/18/18 11:47:00 CDT ondansetron 2019-0 No Route: IV, Memoria (ANES) 3-23 Drug form: l 16:47: INJ, ONCE, Stop date: 06/18/18 11:47:00 CDT phenylephri 2019-0 No Route: Jacoby fransico ne (ANES) 3- IVP, Drug l 16:47: form: INJ, ONCE, Stop date: 06/18/18 11:47:00 CDT metoclopram 2019-0 No Route: IV, Memoria loida (ANES) 06-18 Drug form: l 16:47: INJ, ONCE, Stop date: 06/18/18 11:47:00 CDT sodium 2018-0 No Route: PO, Memor ia citrate 06-18 Drug Form: l (ANES) 16:47: INJ, ONCE, Barbie Stop date: 06/18/18 11:47:00 CDT famotidine No Route: IV, M emoria (ANES) 3- Drug form: l 16:42: INJ, ONCE, Stop date: 06/18/18 11:42:00 CDT ceFAZolin 2018-0 No Route: IV, Me moria (ANES) 3- Drug form: l 16:42: INJ, ONCE, Stop date: 06/18/18 11:42:00 CDT famotidine 0 No Route: IV, M emoria (ANES) 3-23 Drug form: l 16:42: INJ, ONCE, Stop date: 06/18/18 11:42:00 CDT ceFAZolin 0 No Route: IV, Me moria (ANES) 3- Drug form: l 16:42: INJ, ONCE, Stop date: 06/18/18 11:42:00 CDT famotidine 2018-0 No Route: IV, M emoria (ANES) 3-23 Drug form: l 16:42: INJ, ONCE, Stop date: 06/18/18 11:42:00 CDT ceFAZolin 2018-0 No Route: IV, Me moria (ANES) 3-23 Drug form: l 16:42: INJ, ONCE, Stop date: 06/18/18 11:42:00 CDT famotidine 2018-0 No Route: IV, M emoria (ANES) 3-23 Drug form: l 16:42: INJ, ONCE, Stop date: 06/18/18 11:42:00 CDT ceFAZolin 0 No Route: IV, Me moria (ANES) 3-23 Drug form: l 16:42: INJ, ONCE, Stop date: 06/18/18 11:42:00 CDT famotidine 2018- No Route: IV, M emoria (ANES) 06-18 Drug form: l 16:42: INJ, ONCE, Stop date: 06/18/18 11:42:00 CDT ceFAZolin 2018- No Route: IV, Me moria (ANES) 3 Drug form: l 16:42: INJ, ONCE, Stop date: 06/18/18 11:42:00 CDT Pitocin 2018- No Route: IV, Jacoby fransico (ANES) 30 06-18 Drug form: l unit + 16:30: [place] KEYS Dosing Weight 98.6, kg, Start date: 06/18/18 11:30:00 CDT, Stop date: 06/18/18 12:30:00 CDT Pitocin 2018-0 No Route: IV, Jacoby fransico (ANES) 30 06-18 Drug form: l unit + 16:30: [place] KEYS Dosing Weight 98.6, kg, Start date: 06/18/18 11:30:00 CDT, Stop date: 06/18/18 12:30:00 CDT Pitocin 2018-0 No Route: IV, Jacoby fransico (ANES) 30 06-18 Drug form: l unit + 16:30: [place] KEYS Dosing Weight 98.6, kg, Start date: 06/18/18 11:30:00 CDT, Stop date: 06/18/18 12:30:00 CDT Pitocin 2019-0 No Route: IV, Jacoby fransico (ANES) 30 06-18 Drug form: l unit + 16:30: [place] KEYS Dosing Weight 98.6, kg, Start date: 06/18/18 11:30:00 CDT, Stop date: 06/18/18 12:30:00 CDT Pitocin 2019-0 No Route: IV, Jacoby fransico (ANES) 30 06-18 Drug form: l unit + 16:30: [place] KEYS Dosing Weight 98.6, kg, Start date: 06/18/18 11:30:00 CDT, Stop date: 06/18/18 12:30:00 CDT Lactated 2019-0 No Route: IV, Mem oria Ringers 3-23 Total l Injection 15:53: Volume: Barbie nn IV (ANES) 00 1,000, 1000 mL Start date: 06/18/18 10:53:00 CDT, Stop date: 06/18/18 11:53:00 CDT Lactated 0 No Route: IV, Mem oria Ringers 3-23 Total l Injection 15:53: Volume: Barbie nn IV (ANES) 00 1,000, 1000 mL Start date: 06/18/18 10:53:00 CDT, Stop date: 06/18/18 11:53:00 CDT Lactated 0 No Route: IV, Mem oria Ringers 3-23 Total l Injection 15:53: Volume: Barbie nn IV (ANES) 00 1,000, 1000 mL Start date: 06/18/18 10:53:00 CDT, Stop date: 06/18/18 11:53:00 CDT Lactated 0 No Route: IV, Mem oria Ringers 3-23 Total l Injection 15:53: Volume: Barbie nn IV (ANES) 00 1,000, 1000 mL Start date: 06/18/18 10:53:00 CDT, Stop date: 06/18/18 11:53:00 CDT Lactated 0 No Route: IV, Mem oria Ringers 3-23 Total l Injection 15:53: Volume: Barbie nn IV (ANES) 00 1,000, 1000 mL Start date: 06/18/18 10:53:00 CDT, Stop date: 06/18/18 11:53:00 CDT Ondansetron No Notes: Jacoby fransico 3-23 (Same as: l 15:39: Zofran) Wes 00 MEDICATION WASTE Product Size: 4 mg Product Wasted: ___ mg Morphine 2018- No Notes: Memoria 3-23 (Same l 15:39: as:MORPhin [place] 00 e Sulfate) Ondansetron No Notes: Jacoby fransico 3-23 (Same as: l 15:39: Zofran) [place] 00 MEDICATION WASTE Product Size: 4 mg Product Wasted: ___ mg Morphine 2019-0 No Notes: Memoria 3-23 (Same l 15:39: as:MORPhin [place] 00 e Sulfate) Ondansetron 2019-0 No Notes: Jacoby fransico 3-23 (Same as: l 15:39: Zofran) [place] 00 MEDICATION WASTE Product Size: 4 mg Product Wasted: ___ mg Morphine 2019-0 No Notes: Memoria 3-23 (Same l 15:39: as:MORPhin [place] 00 e Sulfate) Ondansetron 2019-0 No Notes: Jacoby fransico 3-23 (Same as: l 15:39: Zofran) [place] 00 MEDICATION WASTE Product Size: 4 mg Product Wasted: ___ mg Morphine 2019-0 No Notes: Memoria 3-23 (Same l 15:39: as:MORPhin [place] 00 e Sulfate) Ondansetron 2018- No Notes: Jacoby fransico 3-23 (Same as: l 15:39: Zofran) [place] 00 MEDICATION WASTE Product Size: 4 mg Product Wasted: ___ mg Morphine 2019-0 No Notes: Memoria 3-23 (Same l 15:39: as:MORPhin [place] 00 e Sulfate) Sodium 2019-0 No 250 mL, Memoria Chloride 3-23 Rate: To l 0.9% 15:38: prime line Wes (titrate) 00 and flush 250 mL remaining blood products., Dosing Weight 98.636, kg, Route: IV, Total Volume: 250, Start Date: 06/18/18 10:38:00 CDT, Duration: 1 day, Stop date: 06/19/18 10:37:00 CDT, Replace Every: 24 hr Sodium 2019-0 No 250 mL, Memoria Chloride 3-23 Rate: To l 0.9% 15:38: prime line [place] (titrate) 00 and flush 250 mL remaining blood products., Dosing Weight 98.636, kg, Route: IV, Total Volume: 250, Start Date: 06/18/18 10:38:00 CDT, Duration: 1 day, Stop date: 06/19/18 10:37:00 CDT, Replace Every: 24 hr Sodium 2019-0 No 250 mL, Memoria Chloride 3-23 Rate: To l 0.9% 15:38: prime line [place] (titrate) 00 and flush 250 mL remaining blood products., Dosing Weight 98.636, kg, Route: IV, Total Volume: 250, Start Date: 06/18/18 10:38:00 CDT, Duration: 1 day, Stop date: 06/19/18 10:37:00 CDT, Replace Every: 24 hr Sodium 2019-0 No 250 mL, Memoria Chloride 3-23 Rate: To l 0.9% 15:38: prime line [place] (titrate) 00 and flush 250 mL remaining blood products., Dosing Weight 98.636, kg, Route: IV, Total Volume: 250, Start Date: 06/18/18 10:38:00 CDT, Duration: 1 day, Stop date: 06/19/18 10:37:00 CDT, Replace Every: 24 hr Sodium 2019-0 No 250 mL, Memoria Chloride 3-23 Rate: To l 0.9% 15:38: prime line [place] (titrate) 00 and flush 250 mL remaining blood products., Dosing Weight 98.636, kg, Route: IV, Total Volume: 250, Start Date: 06/18/18 10:38:00 CDT, Duration: 1 day, Stop date: 06/19/18 10:37:00 CDT, Replace Every: 24 hr Oxytocin 2019-0 No 30 unit, Memor ia 3-23 500 mL, l 01:27: Rate: Wes 00 Titrate, Dosing Weight 98.636, kg, Route: IV, Total Volume: 500 mL, Start date: 06/17/18 20:27:00 CDT, Duration: 2 day, Stop date: 06/19/18 20:26:00 CDT, Replace Every: 24 hr Oxytocin 2019-0 No 30 unit, Memor ia 3-23 500 mL, l 01:27: Rate: Wes 00 Titrate, Dosing Weight 98.636, kg, Route: IV, Total Volume: 500 mL, Start date: 06/17/18 20:27:00 CDT, Duration: 2 day, Stop date: 06/19/18 20:26:00 CDT, Replace Every: 24 hr Oxytocin 2019-0 No 30 unit, Memor ia 3-23 500 mL, l 01:27: Rate: [place] 00 Titrate, Dosing Weight 98.636, kg, Route: IV, Total Volume: 500 mL, Start date: 06/17/18 20:27:00 CDT, Duration: 2 day, Stop date: 06/19/18 20:26:00 CDT, Replace Every: 24 hr Oxytocin 2018-0 No 30 unit, Memor ia 3-23 500 mL, l 01:27: Rate: [place] 00 Titrate, Dosing Weight 98.636, kg, Route: IV, Total Volume: 500 mL, Start date: 06/17/18 20:27:00 CDT, Duration: 2 day, Stop date: 06/19/18 20:26:00 CDT, Replace Every: 24 hr Oxytocin 2018-0 No 30 unit, Memor ia 3-23 500 mL, l :27: Rate: Wes 00 Titrate, Dosing Weight 98.636, kg, Route: IV, Total Volume: 500 mL, Start date: 06/17/18 20:27:00 CDT, Duration: 2 day, Stop date: 06/19/18 20:26:00 CDT, Replace Every: 24 hr Carboprost No Notes: Memor ia 3-23 (Same As: l 00:00: Hemabate) Methylergon No Notes: Jacoby fransico ovine 3-23 (Same l 00:00: as:Metherg [place] 00 ine) Famotidine No Notes: Memor ia 3-23 (Same as: l 00:00: Pepcid) Can be dilute in 5-10cc NS IVP: [...] as:Cytotec Wes 00 ) Take with food Carboprost No Notes: Memor ia 3-23 (Same As: l 00:00: Hemabate) [place] 00 Methylergon No Notes: Jacoby fransico ovine 3-23 (Same l 00:00: as:Metherg [place] 00 ine) Famotidine No Notes: Memor ia 3-23 (Same as: l 00:00: Pepcid) [place] 00 Can be dilute in 5-10cc NS IVP: [...] as:Cytotec Wes 00 ) Take with food Carboprost No Notes: Memor ia 3-23 (Same As: l 00:00: Hemabate) [place] Methylergon No Notes: Jacoby fransico ovine 3-23 (Same l 00:00: as:Metherg [place] 00 ine) Famotidine No Notes: Memor ia 3-23 (Same as: l 00:00: Pepcid) Wes 00 Can be dilute in 5-10cc NS IVP: Slow IV push over at least 2 minutes. Citric Acid No Notes: Jacoby fransico / sodium 3-23 (Same As: l citrate 00:00: Bicitra, David n 00 Cytra-2) Sodium citrate-ci tric acid (500-334 mg/5 mL): 1 mL contains sodium 1 mEq/mL and bicarbonat e 1 mEq/mL Misoprostol No Notes: Jacoby fransico 3-23 (Same l 00:00: as:Cytotec [place] 00 ) Take with food Carboprost No Notes: Memor ia 3-23 (Same As: l 00:00: Hemabate) Wes Methylergon No Notes: Jacoby fransico ovine 3-23 (Same l 00:00: as:Metherg [place] 00 ine) Famotidine No Notes: Memor ia 3-23 (Same as: l 00:00: Pepcid) Wes 00 Can be dilute in 5-10cc NS IVP: [...] as:Cytotec [place] 00 ) Take with food Carboprost No Notes: Memor ia 3-23 (Same As: l 00:00: Hemabate) Methylergon No Notes: Jacoby fransico ovine 3-23 (Same l 00:00: as:Metherg [place] 00 ine) Famotidine No Notes: Memor ia 3-23 (Same as: l 00:00: Pepcid) [place] 00 Can be dilute in 5-10cc NS IVP: [...] a 3-22 (Same as: l 23:38: Motrin) "Do Not Crush" Take with food. Acetaminoph No Notes: Jacoby fransico en 325 MG / 3-22 (Same as: l Hydrocodone 23:38: [place] Barbie nn Bitartrate 00 325/5) Do 5 MG Oral not exceed Tablet 4gm/day of acetaminop hen. Ondansetron No Notes: Jacoby fransico 3-22 (Same as: l 23:38: Zofran) MEDICATION WASTE Product Size: 4 mg Product Wasted: ___ mg Terbutaline No Notes: Jacoby fransico 3-22 DO NOT l 23:38: USE IN [place] FUR EXAMINER AREA (Same As: Bre[place]) Lidocaine No Notes: Memori a Hydrochlori - Preservati l de 10 MG/ML 23:38: ve free. He rmann Injectable (Same as: Solution Xylocaine MPF) Butorphanol No Notes: Jacoby fransico 3-22 (Same As: l 23:38: Stadol) Wes MEDICATION WASTE Product Size: 2 mg Product Wasted: ___ mg Lactated No 1,000 mL, Jacoby fransico Ringers IV 06-17 Rate: 125 l 1,000 mL 23:38: ml/hr, [place] 00 Infuse over: 8 hr, Route: IV, Total Volume: 1,000, Start date: 06/17/18 18:38:00 CDT, Duration: 30 day, Stop date: 07/17/18 18:37:00 CDT Calcium No 1,000 mL, [facility] [place] Chloride 06-17 1,000 l 0.0014 23:38: ml/hr, MEQ/ML / 00 Infuse Potassium Over: 1 Chloride hr, Route: 0.004 IV, 1,000, MEQ/ML / Drug form: Sodium INJ, ONCE, Chloride kg, Start 0.103 date: MEQ/ML / 06/17/18 Sodium 18:38:00 Lactate CDT, Stop 0.028 date: MEQ/ML 06/17/18 Injectable 18:38:00 Solution CDT, Bolus for regional anesthesia per unit routine Oxytocin No 30 unit, [place] 3-22 500 mL, l 23:38: Rate: 42 Wes 00 ml/hr, Infuse over: 11.9 hr, Route: IV, Total Volume: 500 mL, Start date: 06/17/18 18:38:00 CDT, Duration: 2 day, Stop date: 06/19/18 18:37:00 CDT, Replace Every: 11.9 hr Ibuprofen No Notes: Memori a 3-22 (Same as: l 23:38: Motrin) [place] 00 "Do Not Crush" Take with food. Acetaminoph No Notes: Jacoby fransico en 325 MG / -22 (Same as: l Hydrocodone 23:38: [place] Barbie nn Bitartrate 00 325/5) Do 5 MG Oral not exceed Tablet 4gm/day of acetaminop hen. Ondansetron No Notes: Jacoby fransico 3-22 (Same as: l 23:38: Zofran) [place] 00 MEDICATION WASTE Product Size: 4 mg Product Wasted: ___ mg Terbutaline No Notes: Jacoby fransico -22 DO NOT l 23:38: USE IN [place] FUR EXAMINER AREA (Same As: Brethine) Lidocaine No Notes: Memori a Hydrochlori - Preservati l de 10 MG/ML 23:38: ve free. He rmann Injectable 00 (Same as: Solution Xylocaine MPF) Butorphanol No Notes: Jacoby fransico -22 (Same As: l 23:38: Stadol) [place] 00 MEDICATION WASTE Product Size: 2 mg Product Wasted: ___ mg Lactated No 1,000 mL, Jacoby fransico Ringers IV 06-17 Rate: 125 l 1,000 mL 23:38: ml/hr, [place] 00 Infuse over: 8 hr, Route: IV, Total Volume: 1,000, Start date: 06/17/18 18:38:00 CDT, Duration: 30 day, Stop date: 07/17/18 18:37:00 CDT Calcium No 1,000 mL, [facility] [place] Chloride -22 1,000 l 0.0014 23:38: ml/hr, [place] MEQ/ML / 00 Infuse Potassium Over: 1 Chloride hr, Route: 0.004 IV, 1,000, MEQ/ML / Drug form: Sodium INJ, ONCE, Chloride kg, Start 0.103 date: MEQ/ML / 06/17/18 Sodium 18:38:00 Lactate CDT, Stop 0.028 date: MEQ/ML 06/17/18 Injectable 18:38:00 Solution CDT, Bolus for regional anesthesia per unit routine Oxytocin No 30 unit, [place] 3-22 500 mL, l 23:38: Rate: 42 Wes 00 ml/hr, Infuse over: 11.9 hr, Route: IV, Total Volume: 500 mL, Start date: 06/17/18 18:38:00 CDT, Duration: 2 day, Stop date: 06/19/18 18:37:00 CDT, Replace Every: 11.9 hr Ibuprofen No Notes: Memori a 3-22 (Same as: l 23:38: Motrin) [place] "Do Not Crush" Take with food. Acetaminoph No Notes: Jacoby fransico en 325 MG / 06-17 (Same as: l Hydrocodone 23:38: [place] Barbie nn Bitartrate 00 325/5) Do 5 MG Oral not exceed Tablet 4gm/day of acetaminop hen. Ondansetron No Notes: Jacoby fransico 3-22 (Same as: l 23:38: Zofran) [place] 00 MEDICATION WASTE Product Size: 4 mg Product Wasted: ___ mg Terbutaline No Notes: Jacoby fransico 3-22 DO NOT l 23:38: USE IN [place] FUR EXAMINER AREA (Same As: Bre[place]) Lidocaine No Notes: Memori a Hydrochlori - Preservati l de 10 MG/ML 23:38: ve free. He rmann Injectable (Same as: Solution Xylocaine MPF) Butorphanol No Notes: Jacoby fransico -22 (Same As: l 23:38: Stadol) [place] MEDICATION WASTE Product Size: 2 mg Product Wasted: ___ mg Lactated No 1,000 mL, Jacoby fransico Ringers IV 06-17 Rate: 125 l 1,000 mL 23:38: ml/hr, Wes 00 Infuse over: 8 hr, Route: IV, Total Volume: 1,000, Start date: 06/17/18 18:38:00 CDT, Duration: 30 day, Stop date: 07/17/18 18:37:00 CDT Calcium No 1,000 mL, Memor ia Chloride 06-17 1,000 l 0.0014 23:38: ml/hr, Wes MEQ/ML / 00 Infuse Potassium Over: 1 Chloride hr, Route: 0.004 IV, 1,000, MEQ/ML / Drug form: Sodium INJ, ONCE, Chloride kg, Start 0.103 date: MEQ/ML / 06/17/18 Sodium 18:38:00 Lactate CDT, Stop 0.028 date: MEQ/ML 06/17/18 Injectable 18:38:00 Solution CDT, Bolus for regional anesthesia per unit routine Oxytocin No 30 unit, Memor ia 3-22 500 mL, l 23:38: Rate: 42 [place] 00 ml/hr, Infuse over: 11.9 hr, Route: IV, Total Volume: 500 mL, Start date: 06/17/18 18:38:00 CDT, Duration: 2 day, Stop date: 06/19/18 18:37:00 CDT, Replace Every: 11.9 hr Ibuprofen No Notes: Memori a 3-22 (Same as: l 23:38: Motrin) [place] "Do Not Crush" Take with food. Acetaminoph No Notes: Jacoby fransico en 325 MG / -22 (Same as: l Hydrocodone 23:38: [place] Barbie nn Bitartrate 00 325/5) Do 5 MG Oral not exceed Tablet 4gm/day of acetaminop hen. Ondansetron No Notes: Jacoby fransico 3-22 (Same as: l 23:38: Zofran) [place] 00 MEDICATION WASTE Product Size: 4 mg Product Wasted: ___ mg Terbutaline No Notes: Jacoby fransico 3-22 DO NOT l 23:38: USE IN [place] FUR EXAMINER AREA (Same As: Brethine) Lidocaine No Notes: Memori a Hydrochlori -22 Preservati l de 10 MG/ML 23:38: ve free. He rmann Injectable 00 (Same as: Solution Xylocaine MPF) Butorphanol No Notes: Jacoby fransico 3-22 (Same As: l 23:38: Stadol) [place] MEDICATION WASTE Product Size: 2 mg Product Wasted: ___ mg Lactated No 1,000 mL, Jacoby fransico Ringers IV 3-22 Rate: 125 l 1,000 mL 23:38: ml/hr, Wes 00 Infuse over: 8 hr, Route: IV, Total Volume: 1,000, Start date: 06/17/18 18:38:00 CDT, Duration: 30 day, Stop date: 07/17/18 18:37:00 CDT Calcium 2019 No 1,000 mL, Memor ia Chloride 3-22 1,000 l 0.0014 23:38: ml/hr, Wes MEQ/ML / 00 Infuse Potassium Over: 1 Chloride hr, Route: 0.004 IV, 1,000, MEQ/ML / Drug form: Sodium INJ, ONCE, Chloride kg, Start 0.103 date: MEQ/ML / 06/17/18 Sodium 18:38:00 Lactate CDT, Stop 0.028 date: MEQ/ML 06/17/18 Injectable 18:38:00 Solution CDT, Bolus for regional anesthesia per unit routine Oxytocin No 30 unit, Memor ia 3-22 500 mL, l 23:38: Rate: 42 Wes 00 ml/hr, Infuse over: 11.9 hr, Route: IV, Total Volume: 500 mL, Start date: 06/17/18 18:38:00 CDT, Duration: 2 day, Stop date: 06/19/18 18:37:00 CDT, Replace Every: 11.9 hr Ibuprofen No Notes: Memori a 3-22 (Same as: l 23:38: Motrin) "Do Not Crush" Take with food. Acetaminoph No Notes: Jacoby fransico en 325 MG / -22 (Same as: l Hydrocodone 23:38: [place] Barbie nn Bitartrate 00 325/5) Do 5 MG Oral not exceed Tablet 4gm/day of acetaminop hen. Ondansetron No Notes: Jacoby fransico 3-22 (Same as: l 23:38: Zofran) MEDICATION WASTE Product Size: 4 mg Product Wasted: ___ mg Terbutaline No Notes: Jacoby fransico 3-22 DO NOT l 23:38: USE IN [place] FUR EXAMINER AREA (Same As: Brethine) Lidocaine No Notes: Memori a Hydrochlori -22 Preservati l de 10 MG/ML 23:38: ve free. He rmann Injectable 00 (Same as: Solution Xylocaine MPF) Butorphanol No Notes: Jacoby fransico 3-22 (Same As: l 23:38: Stadol) [place] 00 MEDICATION WASTE Product Size: 2 mg Product Wasted: ___ mg Lactated No 1,000 mL, Jacoby fransico Ringers IV 06-17 Rate: 125 l 1,000 mL 23:38: ml/hr, Wes 00 Infuse over: 8 hr, Route: IV, Total Volume: 1,000, Start date: 06/17/18 18:38:00 CDT, Duration: 30 day, Stop date: 07/17/18 18:37:00 CDT Calcium No 1,000 mL, Memor ia Chloride - 1,000 l 0.0014 23:38: ml/hr, Wes MEQ/ML / 00 Infuse Potassium Over: 1 Chloride hr, Route: 0.004 IV, 1,000, MEQ/ML / Drug form: Sodium INJ, ONCE, Chloride kg, Start 0.103 date: MEQ/ML / 06/17/18 Sodium 18:38:00 Lactate CDT, Stop 0.028 date: MEQ/ML 06/17/18 Injectable 18:38:00 Solution CDT, Bolus for regional anesthesia per unit routine Oxytocin No 30 unit, Memor ia 3-22 500 mL, l 23:38: Rate: 42 [place] 00 ml/hr, Infuse over: 11.9 hr, Route: IV, Total Volume: 500 mL, Start date: 06/17/18 18:38:00 CDT, Duration: 2 day, Stop date: 06/19/18 18:37:00 CDT, Replace Every: 11.9 hr tetanus/dip No Notes: Jacoby fransico hth/pertuss 3-22 Therapeuti l (Tdap) 05:00: c [place] adult/adol 00 Interchang e for Boostrix tetanus/dip No Notes: Jacoby fransico hth/pertuss 3-22 Therapeuti l (Tdap) 05:00: c [place] adult/adol 00 Interchang e for Boostrix tetanus/dip No Notes: Jacoby fransico hth/pertuss 3-22 Therapeuti l (Tdap) 05:00: c [place] adult/adol 00 Interchang e for Boostrix tetanus/dip No Notes: Jacoby fransico hth/pertuss 3-22 Therapeuti l (Tdap) 05:00: c [place] adult/adol 00 Interchang e for Boostrix tetanus/dip No Notes: Jacoby fransico hth/pertuss 3-22 Therapeuti l (Tdap) 05:00: c [place] adult/adol 00 Interchang e for Boostrix [id number] Yes 1{tbl} Take 1 Tab Univers carb&glu-FA 8-16 by mouth ity of -DSS-dha 13:42: daily. [place] (CITRANATAL 38 Medical ASSURE) 35 Branch mg iron-1 mg -50 mg-300 mg Cmpk [id number] Yes 1{tbl} Take 1 Tab Univers carb&glu-FA 8-16 by mouth ity of -DSS-dha 13:42: daily. [place] (CITRANATAL 38 Medical ASSURE) 35 Branch mg iron-1 mg -50 mg-300 mg Cmpk [id number] Yes 1{tbl} Take 1 Tab Univers carb&glu-FA 8-16 by mouth ity of -DSS-dha 13:42: daily. [place] (CITRANATAL 38 Medical ASSURE) 35 Branch mg iron-1 mg -50 mg-300 mg Cmpk docusate Yes 240mg Take 1 Cap Un y[place] calcium 8-16 by mouth ity of (SURFAK) 00:00: once daily Flavio as 240 mg 00 as needed Medical capsule for Branch Constipati on. ferrous Yes 325mg Take 1 Tab Uni vers sulfate 325 8-16 by mouth 2 it y of mg (65 mg 00:00: (two) Laxmi iron) 00 times Medical tablet daily. Branch acetaminoph Yes 1{tbl} Take 1-2 Univers en-codeine 8-16 Tabs by ity of (TYLENOL 00:00: mouth [place] #3) 300-30 00 every 6 Medica l mg tablet (six) Branch hours as needed for Pain unrelieved by non-narcot ic analgesics . For patients < 12 years recommend do not exceed 5 doses or 2.6 gm in 24 hours totals for all acetaminop hen containing products. For adults with normal hepatic function recommend do not exceed 3 grams in 24 hours for all acetaminop hen containing products. ibuprofen Yes 600mg Take 1 Tab U nivers (MOTRIN) 8-16 by mouth ity of 600 mg 00:00: every 6 [place] tablet 00 (six) Medical hours as Branch needed for Pain (scale 1-3) or Pain (scale 4-6). Take with food or milk. docusate Yes 240mg Take 1 Cap Un [place] calcium 8-16 by mouth ity of (SURFAK) 00:00: once daily Flavio as 240 mg 00 as needed Medical capsule for Branch Constipati on. ferrous 0 Yes 325mg Take 1 Tab Uni vers sulfate 325 8-16 by mouth 2 it y of mg (65 mg 00:00: (two) [place] iron) 00 times Medical tablet daily. Branch acetaminoph Yes 1{tbl} Take 1-2 Univers en-codeine 8-16 Tabs by ity of (TYLENOL 00:00: mouth [place] #3) 300-30 00 every 6 Medica l mg tablet (six) Branch hours as needed for Pain unrelieved by non-narcot ic analgesics . For patients < 12 years recommend do not exceed 5 doses or 2.6 gm in 24 hours totals for all acetaminop hen containing products. For adults with normal hepatic function recommend do not exceed 3 grams in 24 hours for all acetaminop hen containing products. ibuprofen Yes 600mg Take 1 Tab U nivers (MOTRIN) 8-16 by mouth ity of 600 mg 00:00: every 6 [place] tablet 00 (six) Medical hours as Branch needed for Pain (scale 1-3) or Pain (scale 4-6). Take with food or milk. docusate 0 Yes 240mg Take 1 Cap Un [place] calcium 8-16 by mouth ity of (SURFAK) 00:00: once daily Flavio as 240 mg 00 as needed Medical capsule for Branch Constipati on. ferrous 0 Yes 325mg Take 1 Tab Uni vers sulfate 325 8-16 by mouth 2 it y of mg (65 mg 00:00: (two) [place] iron) 00 times Medical tablet daily. Branch acetaminoph Yes 1{tbl} Take 1-2 Univers en-codeine 8-16 Tabs by ity of (TYLENOL 00:00: mouth [place] #3) 300-30 00 every 6 Medica l mg tablet (six) Branch hours as needed for Pain unrelieved by non-narcot ic analgesics . For patients < 12 years recommend do not exceed 5 doses or 2.6 gm in 24 hours totals for all acetaminop hen containing products. For adults with normal hepatic function recommend do not exceed 3 grams in 24 hours for all acetaminop hen containing products. ibuprofen Yes 600mg Take 1 Tab U nivers (MOTRIN) 8-16 by mouth ity of 600 mg 00:00: every 6 [place] tablet 00 (six) Medical hours as Branch needed for Pain (scale 1-3) or Pain (scale 4-6). Take with food or milk. IRON/FA/B12 Yes 1{tbl} Take 1 Tab Univers /C/DOCUSATE 4-28 by mouth ity of SODIUM 00:00: daily. [place] (FERRALET 00 Indication Medi yokasta 90 ORAL) s: Branch anemia IRON/FA/B12 Yes 1{tbl} Take 1 Tab Univers /C/DOCUSATE 4-28 by mouth ity of SODIUM 00:00: daily. [place] (FERRALET 00 Indication Medi yokasta 90 ORAL) s: Branch anemia IRON/FA/B12 Yes 1{tbl} Take 1 Tab Univers /C/DOCUSATE 4-28 by mouth ity of SODIUM 00:00: daily. [place] (FERRALET 00 Indication Medi yokasta 90 ORAL) s: Branch anemia Immunizations Ordered Filled Date Status Comments Source Immunization Name Immunization Name RhoGam (MAY 20182018-06-19 Completed [facility] kiran Charting)<sup>1</kelley 04:22:00 p> RhoGam (MAY 20182018-06-19 Completed [facility] kiran Charting)<sup>1</kelley 04:22:00 p> RhoGam (MAY 20182018-06-19 Completed [facility] kiran Charting)<sup>1</kelley 04:22:00 p> RhoGam (MAY 20182018-06-19 Completed [facility] kiran Charting)<sup>1</kelley 04:22:00 p> Rho (d) Immune 2018-05-23 Completed [facility] Globulin 00:00:00 [facility] Rho (d) Immune 2018-05-23 Completed [facility] of Globulin 00:00:00 [facility] Rho (d) Immune 2018-05-23 Completed [facility] Globulin 00:00:00 [facility] Rho (d) Immune 2014-11-11 Completed [facility] Globulin 00:00:00 [facility] Rho (d) Immune 2014-11-11 Completed [facility] Globulin 00:00:00 [facility] Rho (d) Immune 2014-11-11 Completed [facility] Globulin 00:00:00 [facility]am [facility]</kelley p> Vital Signs Vital Name Observation Time Observation Value Comments Source Systolic blood 2022-10-09 142 mm[Hg] University of pressure 01:00:00 [facility] Diastolic blood 2022-10-09 101 mm[Hg] University o f pressure 01:00:00 [facility] Heart rate 2022-10-09 70 /min [facility] 01:00:00 [facility] Respiratory rate 2022-10-09 16 /min University of 01:00:00 [facility] Oxygen saturation 2022-10-09 99 /min [facility] in Arterial blood 01:00:00 [facility] by Pulse oximetry [place] Body temperature 2022-10-08 37.28 Marlen University of 23:40:00 [facility] Body height 2022-10-08 154.9 cm University of 23:40:00 [facility] Body weight 2022-10-08 85.73 kg University of 23:40:00 [facility] BMI 2022-10-08 35.71 kg/m2 University of 23:40:00 [facility] Systolic blood 2022-03-17 140 mm[Hg] University of pressure 05:34:32 [facility] Diastolic blood 2022-03-17 88 mm[Hg] University o f pressure 05:34:32 [facility] Heart rate 2022-03-17 68 /min University of 05:34:32 [facility] Body temperature 2022-03-17 36.5 Marlen [place] of 05:34:32 [facility] Respiratory rate 2022-03-17 14 /min University of 05:34:32 [facility] Oxygen saturation 2022-03-17 98 /min [facility] in Arterial blood 05:34:32 [facility] by Pulse oximetry Branch Body height 2022-03-16 160 cm [facility] 22:48:00 [facility] Body weight 2022-03-16 106.595 kg University 22:48:00 [facility] BMI 2022-03-16 41.63 kg/m2 University 22:48:00 [facility] BP Systolic 2018-08-04 120 mm[Hg] Location: [facility]; [facility] 13:52:00 Position: Sitting BP Diastolic 2018-08-04 80 mm[Hg] Location: [facility]; [facility] 13:52:00 Position: Sitting Height 2018-08-04 61 [in_us] [facility] 13:52:00 Weight 2018-08-04 202.8 [lb_av] [facility] 13:52:00 Body Mass Index 2018-08-04 38.32 kg/m2 [facility] Calculated 13:52:00 Heart Rate 2018-08-04 86 /min [facility] 13:52:00 BP Systolic 2018-07-01 125 mm[Hg] Location: [facility]; [facility] 14:04:00 Position: Sitting BP Diastolic 2018-07-01 84 mm[Hg] Location: [facility]; [facility] 14:04:00 Position: Sitting Height 2018-07-01 61 [in_us] [facility] 14:04:00 Weight 2018-07-01 203 [lb_av] [facility] 14:04:00 Body Mass Index 2018-07-01 38.36 kg/m2 [facility] Calculated 14:04:00 Heart Rate 2018-07-01 79 /min [facility] 14:04:00 Temperature Oral 2018-06-21 98.0 F [facility] rmann (F) 13:36:00 Respitory Rate 2018-06-21 [facility] 13:36:00 Systolic (mm Hg) 2018-06-21 [facility] 13:36:00 Diastolic (mm Hg) 2018-06-21 [facility] 13:36:00 Heart Rate 2018-06-21 [facility] 13:36:00 Temperature Oral 2018-06-21 97.8 F [facility] He rmann (F) 05:00:00 Heart Rate 2018-06-21 [facility] 05:00:00 Respitory Rate 2018-06-21 [facility] kiran 05:00:00 Systolic (mm Hg) 2018-06-21 Mikaela Up rmann 05:00:00 Diastolic (mm Hg) 2018-06-21 [facility] ermann 05:00:00 Heart Rate 2018-06-20 Mikaela Kelloggan n 22:32:00 Temperature Oral 2018-06-20 97.5 F [facility] Jeovanny rmann (F) 22:32:00 Respitory Rate 2018-06-20 [facility]an 22:32:00 Systolic (mm Hg) 2018-06-20 [facility] Jeovanny rmann 22:32:00 Diastolic (mm Hg) 2018-06-20 [facility] ermann 22:32:00 Height 2018-06-18 152.4 cm [facility] 00:28:00 BMI Calculated 2018-06-18 [facility]iran 00:28:00 Weight 2018-06-18 [facility] 00:28:00 Height 2018-06-17 154.94 cm [facility] 23:54:00 Weight 2018-06-17 Mikaela Kelloggan n 23:54:00 BMI Calculated 2018-06-17 [facility] 23:54:00 BP Systolic 2018-06-16 132 mm[Hg] Location: [facility]; [facility] 13:43:00 Position: Sitting BP Diastolic 2018-06-16 85 mm[Hg] Location: [facility]; [facility] 13:43:00 Position: Sitting Height 2018-06-16 61 [in_us] [facility] 13:43:00 Weight 2018-06-16 219 [lb_av] [facility] 13:43:00 Body Mass Index 2018-06-16 41.38 kg/m2 [facility] Calculated 13:43:00 Heart Rate 2018-06-16 101 /min [facility] 13:43:00 BP Systolic 2018-06-09 117 mm[Hg] Location: [facility]; [facility] 12:59:00 Position: Sitting BP Diastolic 2018-06-09 80 mm[Hg] Location: [facility]; [facility] 12:59:00 Position: Sitting Height 2018-06-09 61 [in_us] [facility] 12:59:00 Weight 2018-06-09 218 [lb_av] [facility] 12:59:00 Body Mass Index 2018-06-09 41.19 kg/m2 [facility] Calculated 12:59:00 Heart Rate 2018-06-09 102 /min [facility] 12:59:00 BP Systolic 2018-06-02 116 mm[Hg] Location: [facility]; [facility] 13:34:00 Position: Sitting BP Diastolic 2018-06-02 79 mm[Hg] Location: [facility]; [facility] 13:34:00 Position: Sitting Height 2018-06-02 61 [in_us] [facility] 13:34:00 Weight 2018-06-02 217 [lb_av] [facility] 13:34:00 Body Mass Index 2018-06-02 41 kg/m2 [facility] Calculated 13:34:00 Heart Rate 2018-06-02 78 /min [facility] 13:34:00 Procedures Procedure Date / Time Performing Clinician Source Performed INCISION AND DRAINAGE 2022-10-09 01:17:58 Vannesa Chen [facility] POCT TEST 2022-10-09 00:06:00 Vannesa Chen [facility] NOTICE OF PRIVACY 2022-10-08 23:30:51 Doctor Unassigned, [facility] [place] CONSENT/REFUSAL FOR 2022-10-08 23:29:01 Doctor Rakan, [facility] DIAGNOSIS AND TREATMENT [facility] US PELVIS COMPLETE WITH 2022-03-17 04:54:04 Adwoa Reagan [facility] TRANSVAGINAL [facility] CT ABDOMEN PELVIS W 2022-03-17 01:50:43 Adwoa Reagan [facility] CONTRAST [facility] URINALYSIS 2022-03-17 01:09:00 Adwoa Reagan [facility] LIPASE 2022-03-17 00:29:00 Adwoa Reagan [facility] TEST, SERUM 2022-03-17 00:29:00 Adwoa Reagan [facility] COMP. METABOLIC PANEL 2022-03-17 00:29:00 Adwoa Reagan [facility] ([id number]) Medical [place] CBC WITH DIFF 2022-03-17 00:29:00 Adwoa Reagan [facility] NOTICE OF PRIVACY 2022-03-16 22:31:06 Doctor Unadariaigned, [facility] PRACTICES [facility] [place] CONSENT/REFUSAL FOR 2022-03-16 22:28:57 Doctor Rakan, [facility] DIAGNOSIS AND TREATMENT [facility] [O] Urine Test 2018-08-04 00:00:00 [facility] (in office) . [facility] - PAP w/reflex 2018-08-04 00:00:00 [facility] HPV [H] Drug Screen Urine (9 2018-06-02 00:00:00 [facility] Drugs) [H] Hemoglobin 2018-06-02 00:00:00 [facility] Electrophoresis and Interpretation [H] Obstetrics Panel 2018-06-02 00:00:00 [facility] (includes CBCw/Diff,RPR, HbsAg,RubIgG,Type and Screen) [H] Treponema Pallidum 2018-06-02 00:00:00 [facility] Antibody by TP-PA [QH] [id number] 2018-06-02 00:00:00 [facility] DEHYDROGENASE, QUANT. [QLH] CULTURE, URINE, 2018-06-02 00:00:00 [facility] ROUTINE [QLH] URINALYSIS, COMPLETE 2018-06-02 00:00:00 [facility] [QH] STREPTOCOCCUS, GROUP 2018-06-02 00:00:00 [facility] B CULTURE (Genital Strep Screen) [QLH] RPR 2018-06-02 00:00:00 [facility] [QH] HIV AB, HIV 1/2, EIA, 2018-06-02 00:00:00 [facility] WITH REFLEXES . [facility] - Affirm VPIII 2018-06-02 00:00:00 [facility] (BV Panel) . [facility] - GC/Chlamydia 2018-06-02 00:00:00 [facility] [QH] HEPATITIS B SURFACE 2018-06-02 00:00:00 [facility] ANTIGEN W/REFL CONFIRM [QLH] HEPATITIS C ANTIBODY 2018-06-02 00:00:00 [facility] Encounters Start End Encounter Admission Attending Care Care Encounter Source Date/Time Date/Time Type Type Clinicians Facility Department ID 2022-10-13 2022-10-13 Outpatient SFA JOANNA [id number] Michael 10:08:55 10:08:55 0718 F [place] 2022-10-08 2022-10-08 [facility] [id number] [facility] 18:42:00 21:00:00 Vannesa NASH [id number] ity of [place] [id number] [facility] [id number] [place] [id number] [place] 2022-10-08 2022-10-08 Emergency X MJ RUST ERT [id number] Univers 18:42:00 21:00:00 VANNESA radha [facility] 2022-10-08 2022-10-08 Outpatient [facility] [id number] Michael 14:17:39 14:17:39 0713 F [place] 2022-10-08 2022-10-08 Orders Doctor JOSIE [id number] Univers 00:00:00 00:00:00 Only Unassigned, SOHEILA [id number] ity of [facility] [id number] Flavio [id number] [address] 2022-08-05 2022-08-05 Outpatient [facility] [id number] Michael 10:01:13 10:01:13 0510 F [place] 2022-03-16 2022-03-17 Emergency X [facility] ERT [id number] Univers 16:50:00 00:14:00 [facility] [place] 2022-03-16 2022-03-17 Emergency [facility] [id number] Univers 16:50:00 00:14:00 Adwoa Valero CHARITY [id number] ity of [place] [id number] [facility] [id number] [address] 2020-11-15 2020-11-15 Outpatient Jenny DUNN [facility] [id number] Univers 11:00:00 11:00:00 [facility] 2020-10-04 2020-10-04 Outpatient Jenny DUNN [facility] [id number] Univers 10:45:00 10:45:00 [facility] 2019-11-02 2019-11-02 Outpatient [facility] PDPFEIZ YQP COH 00:00:00 00:00:00 [id number] 2018-08-04 2018-08-04 Gil CAROLINA [facility] Administrative Fellow [id number] [place] 14:45:00 14:45:00 t; Josie KRAUS Ph, ans DEVYN, M.D. 2018-07-01 2018-07-01 Appointerasmo CRANE [facility] Women's [id number] [place] 15:00:00 15:00:00 t; Arabella STEPHENS i, D.O. ans ANEESH, D.O. 2018-06-17 2018-06-21 Inpatient nullFlavo [facility] [id number] Memoria 23:18:00 23:00:[address] 2018-06-17 2018-06-21 Inpatient nullFlavo [facility] [id number] Memoria 23:18:00 23:00:[address] 2018-06-17 2018-06-21 Outpatient Duret-Uzodi [facility] [id number] 18:18:00 18:00:00 Aurora parra 81 J 2018-06-16 2018-06-[facility] Administrative Fellow [id number] [place] 13:30:00 13:30:00 t; KATHY SCHMITT, Josie Agustin M.D. 2018-06-09 2018-06-09 [facility] F[facility], [facility] [id number] [place] 15:30:00 15:30:00 t; FUR EXAMINER, ROOM1 [facility] ROOM1 [facility] 2018-06-09 2018-06-09 Appointerasmo SCHMITT, [facility] Administrative Fellow [id number] [place] 13:45:00 13:45:00 t; KATHY SCHMITT, Josie Agustin M.D. 2018-06-03 2018-06-03 Appointmen FUR EXAMINER, [facility] [id number] [place] 11:30:00 11:30:00 t; FUR EXAMINER, ROOM4 [facility] ROOM4 [facility] 2018-06-02 2018-06-02 Appointerasmo SCHMITT [facility] Administrative Fellow [id number] [place] 14:30:00 14:30:00 t; KARRAM, KATHY, Ph ysici KATHY, M.D. ans M.D. Results Test Description Test Time Test Comments Results Result Comments Source POCT TEST 2022-10-09 00:06:00 Test Item Value Reference Range Interpretation Comme nts POCT PREG (test code = 1605) Negative On board controls acceptable with C Line (test code = 3574) Yes POCT PREG LOT # (test code = 4590) [id number] POCT PREG TEST DATE (test code = 3576) 2024-03-10 Lab Interpretation (test code = 53619-6) Normal [place] [facility], [id number] 00:58:07 Test Item Value Reference Range Interpretation Comments PREG SERUM (test code Negative = 7391633365) JOJO (test code = JOJO) Less than 10 IU/L. ?If low titer or ectopic is suspected, resubmit specimen in 48-72 hours. [facility]. METABOLIC PANEL ([id number])2022-03-17 00:55:43 Test Item Value Reference Range Interpretation Comments NA (test code = 141 mmol/L 135-145 8808894412) K (test code = 4.1 mmol/L 3.5-5.0 3805141488) CL (test code = 105 mmol/L 98-108 1221282649) CO2 TOTAL (test code 28 mmol/L 23-31 = 9644688497) AGAP (test code = 2-16 4049027427) BUN (test code = 10 mg/dL 7-23 4124507222) GLUCOSE (test code = 90 mg/dL 70-110 2565312419) CREATININE (test code 0.79 mg/dL 0.50-1.04 = 6833573572) TOTAL BILI (test code 0.3 mg/dL 0.1-1.1 = 9841166661) CALCIUM (test code = 8.7 mg/dL 8.6-10.6 2526211293) T PROTEIN (test code 7.1 g/dL 6.3-8.2 = 4267238816) ALBUMIN (test code = 4.5 g/dL 3.5-5.0 0284434362) ALK PHOS (test code = 74 U/L 34-122 3293029443) ALTv (test code = 14 U/L 5-35 1742-6) AST(SGOT) (test code 20 U/L 13-40 = 9390204730) eGFR (test code = mL/min/1.73m2 6528850518) JOJO (test code = JOJO) Association of Glomerular Filtration Rate (GFR) and Staging of Kidney Disease* + + +- +| GFR (mL/min/1.73 m2) ?| With Kidney Damage ?| ?Without Kidney Damage+ ------+ ----+ ------+| ?>90 ?| ?Stage one ?| ? Normal ?+ -+ + -+| ?60-89 ?| ?Stage two ?| ? Decreased GFR ? + + +- +| ?30-59 ?| ?Stage three ?| ? Stage three ? + + +- +| ?15-29 ?| ?Stage four ? | ? Stage four ?+ -+ + -+| ?<15 (or dialysis) ? ?| ?Stage five ? | ? Stage five ?+ -+ + -+ *Each stage assumes the associated GFR level has been in effect for at least three months. ?Stages 1 to 5, with or without kidney disease, indicate chronic kidney disease. Notes: Determination of stages one and two (with eGFR >59mL/min/1.73 m2) requires estimation of kidney damage for at least three months as defined by structural or functional abnormalities of the kidney, manifested by either:Pathological abnormalities or Markers of kidney damage (including abnormalities in the composition of the blood or urine or abnormalities in imaging tests). [facility]22 Test Item Value Reference Range Interpretation Comments LIPASE (test code = 8188803217) 62 U/L 0-220 Lab Interpretation (test code = Normal 14529-0) [facility]CB WITH DWIP2083-32-07 00:42:39 Test Item Value Reference Range Interpretation Comments WBC (test code = See_Comment [Automated 1970-2) message] The sy stem which generated this result transmitted reference range : 4.30 - 11.10 10*3/?L. The reference range was not used to interpret this result as normal/abnormal . RBC (test code = See_Comment [Automated 391-7) message] The sy stem which generated this result transmitted reference range : 3.93 - 5.25 10*6/?L. The reference range was not used to interpret this result as normal/abnormal . HGB (test code = 13.2 g/dL 11.6-15.0 718-7) HCT (test code = 41.6 % 35.7-45.2 4544-3) MCV (test code = 88.7 fL 80.6-95.5 787-2) MCH (test code = 28.1 pg 25.9-32.8 785-6) MCHC (test code = 31.7 g/dL 31.6-35.1 786-4) RDW-SD (test code = 43.3 fL 39.0-49.9 27752-5) RDW-CV (test code = 13.4 % 12.0-15.5 788-0) PLT (test code = See_Comment [Automated 777-3) message] The sy stem which generated this result transmitted reference range : 166 - 358 10*3/ ?L. The reference r john was not used to interpret this result as normal/abnormal . MPV (test code = 9.3 fL 9.5-12.9 L 81999-3) NRBC/100 WBC (test See_Comment [Automat ed code = [id number]) message] The system which generated this result transmitted reference range : 0.0 - 10.0 /100 WBCs. The refer ence range was not u sed to interpret th is result as normal/abnormal . NRBC x10^3 (test code See_Comment [Auto mated = [id number]) message] The s ystem which generated this result transmitted reference range : 10*3/?L. The reference range was not used to interpret this result as normal/abnormal . GRAN MAT (NEUT) % 60.5 % (test code = 770-8) IMM GRAN % (test code 0.40 % = 3882745330) LYMPH % (test code = 30.1 % 736-9) MONO % (test code = 5.3 % 5905-5) EOS % (test code = 3.2 % 713-8) BASO % (test code = 0.5 % 706-2) GRAN MAT x10^3(ANC) 6.58 10*3/uL 1.88-7.09 (test code = 1509323279) IMM GRAN x10^3 (test 0.04 10*3/uL 0.00-0.06 code = 6414287376) LYMPH x10^3 (test code 3.27 10*3/uL 1.32-3.29 = 731-0) MONO x10^3 (test code 0.58 10*3/uL 0.33-0.92 = 742-7) EOS x10^3 (test code = 0.35 10*3/uL 0.03-0.39 711-2) BASO x10^3 (test code 0.05 10*3/uL 0.01-0.07 = 704-7) Lab Interpretation Abnormal (test code = 43425-4) [facility] Okwpat5459-97-57 00:00:00 Test Item Value Reference Range Interpretation Comments REPORT (test code = REPORT) See Comment [facility][O] Urine Test (in office)2018-08-04 00:00:00 Test Item Value Reference Range Interpretation Comments Test, Urine; Normal (test negative N code = 2106-3) [facility] WllindvxzmZZGCMTCXLV9955-61-70 11:23:00 Test Item Value Reference Range Interpretation Comments Platelet (test code = Platelet) 201 133-450 [facility]RtbjjbwYRQXNHFNXD1197-38-14 11:23:00 Test Item Value Reference Range Interpretation Comments MPV (test code = MPV) 8.0 7.4-10.4 [facility] CenterItqhlkvWHWENKSMWE6511-84-93 11:23:00 Test Item Value Reference Range Interpretation Comments MCHC (test code = MCHC) 33.7 32.0-36.0 [facility] CenterUcuggquIFKFXXOSYU5232-29-38 11:23:00 Test Item Value Reference Range Interpretation Comments RDW (test code = RDW) 14.7 11.5-14.5 [facility]RfjzkinLQEADGDQXJ3547-65-65 11:23:00 Test Item Value Reference Range Interpretation Comments MCV (test code = MCV) 84.3 80.0-98.0 [facility] CenterZwtggikISZTCQMSQZ2499-52-46 11:23:00 Test Item Value Reference Range Interpretation Comments MCH (test code = MCH) 28.4 pg 27.0-31.0 [facility] CenterPrqyxqiZUACJQUSAX3079-14-56 11:23:00 Test Item Value Reference Range Interpretation Comments Hgb (test code = Hgb) 8.9 12.0-16.0 [facility] CenterOywsphpTDGOFPDVQG2150-20-46 11:23:00 Test Item Value Reference Range Interpretation Comments WBC (test code = WBC) 14.6 3.7-10.4 [facility] CenterRlowhbgAVHINLTQBG4508-21-70 11:23:00 Test Item Value Reference Range Interpretation Comments Hct (test code = Hct) 26.4 36.0-48.0 [facility] CenterCsmaxbsGPRKPFFZVE0080-14-03 11:23:00 Test Item Value Reference Range Interpretation Comments RBC (test code = RBC) 3.13 4.20-5.40 [facility] CenterZgugzaeDTDJTVCYBR5126-76-55 11:23:00 Test Item Value Reference Range Interpretation Comments Eosinophils (test code = 1.5 See_Comment [A utomated message] The Eosinophils) system which nerated this result tra nsmitted reference range : <=4.0. The reference r john was not used to int erpret this result as normal/abnormal . [facility] CenterXgntpufZCTJDIDEHQ4538-76-35 11:23:00 Test Item Value Reference Range Interpretation Comments Basophils (test code = 0.1 See_Comment [Aut omated message] The Basophils) system which ge nerated this result tra nsmitted reference range : <=1.0. The reference r john was not used to int erpret this result as normal/abnormal . [facility] CenterJknbuiiSVZVBPLTTB7163-49-88 11:23:00 Test Item Value Reference Range Interpretation Comments Lymphocytes (test code = Lymphocytes) 13.1 20.0-40.0 [facility] CenterGokvdmzXEPOAUKGDN2918-51-14 11:23:00 Test Item Value Reference Range Interpretation Comments Segs (test code = Segs) 79.9 45.0-75.0 [facility] CenterYjyyrxeDSXMRVSVOG7146-51-39 11:23:00 Test Item Value Reference Range Interpretation Comments Eosinophils # (test code 0.2 See_Comment [A utomated message] The = Eosinophils #) system whic h generated this result tra nsmitted reference range : <=0.5. The reference r john was not used to int erpret this result as normal/abnormal . [facility] CenterXwxojdpVNZJMJLTJZ5367-96-35 11:23:00 Test Item Value Reference Range Interpretation Comments Monocytes # (test code 0.8 See_Comment [Aut omated message] The = Monocytes #) system which generated this result tra nsmitted reference range : <=0.8. The reference r john was not used to int erpret this result as normal/abnormal . [facility] CenterLhylqouIVPHRDZJFE6756-37-75 11:23:00 Test Item Value Reference Range Interpretation Comments Neutrophils # (test code = Neutrophils 11.7 1.5-8.1 #) [facility] CenterAugopasEMVGCTUYZA6916-46-99 11:23:00 Test Item Value Reference Range Interpretation Comments Lymphocytes # (test code = Lymphocytes 1.9 1.0-5.5 #) [facility] CenterJuutslzEEMPWVPQNJ9450-20-32 11:23:00 Test Item Value Reference Range Interpretation Comments Monocytes (test code = Monocytes) 5.4 2.0-12.0 [facility] CenterIvgecrjJLYRNKUGYP7457-07-47 11:23:00 Test Item Value Reference Range Interpretation Comments Platelet (test code = Platelet) 201 133-450 [facility] CenterQmppjynLLDYFAWONW4014-75-95 11:23:00 Test Item Value Reference Range Interpretation Comments MPV (test code = MPV) 8.0 7.4-10.4 [facility] CenterWlqrwceNVEHQAUYZC0295-93-09 11:23:00 Test Item Value Reference Range Interpretation Comments MCHC (test code = MCHC) 33.7 32.0-36.0 [facility] CenterVovthknMFXNXRJPZH5622-54-95 11:23:00 Test Item Value Reference Range Interpretation Comments RDW (test code = RDW) 14.7 11.5-14.5 [facility] CenterUjswisfZQXPSLZWOC9063-48-64 11:23:00 Test Item Value Reference Range Interpretation Comments MCV (test code = MCV) 84.3 80.0-98.0 [facility] CenterCwghjxaTVRDKOQOML2152-15-10 11:23:00 Test Item Value Reference Range Interpretation Comments MCH (test code = MCH) 28.4 pg 27.0-31.0 [facility] CenterHofjkvxHCVMTCLORQ9223-59-27 11:23:00 Test Item Value Reference Range Interpretation Comments Hgb (test code = Hgb) 8.9 12.0-16.0 [facility] CenterTiygqxsBFNZXMGIZO4413-82-16 11:23:00 Test Item Value Reference Range Interpretation Comments WBC (test code = WBC) 14.6 3.7-10.4 [facility] CenterHeserexKWTQHMTRYT9226-14-29 11:23:00 Test Item Value Reference Range Interpretation Comments Hct (test code = Hct) 26.4 36.0-48.0 [facility] CenterZzkguitXYSRSMPRWE0057-92-20 11:23:00 Test Item Value Reference Range Interpretation Comments RBC (test code = RBC) 3.13 4.20-5.40 [facility] CenterPbavqdiTKOCQOVLTU9295-58-46 11:23:00 Test Item Value Reference Range Interpretation Comments Eosinophils (test code = 1.5 See_Comment [A utomated message] The Eosinophils) system which ge nerated this result tra nsmitted reference range : <=4.0. The reference r john was not used to int erpret this result as normal/abnormal . [facility] CenterCisbztpMRVBTIVHWK8651-70-32 11:23:00 Test Item Value Reference Range Interpretation Comments Basophils (test code = 0.1 See_Comment [Aut omated message] The Basophils) system which ge nerated this result tra nsmitted reference range : <=1.0. The reference r john was not used to int erpret this result as normal/abnormal . [facility] CenterIvyxkclEMOBZIAUWY7644-82-35 11:23:00 Test Item Value Reference Range Interpretation Comments Lymphocytes (test code = Lymphocytes) 13.1 20.0-40.0 [facility] CenterHofubciOCNBMVKRKG4863-61-00 11:23:00 Test Item Value Reference Range Interpretation Comments Segs (test code = Segs) 79.9 45.0-75.0 [facility] CenterPibttwwTVVBNSCDWI3630-30-05 11:23:00 Test Item Value Reference Range Interpretation Comments Eosinophils # (test code 0.2 See_Comment [A utomated message] The = Eosinophils #) system whic h generated this result tra nsmitted reference range : <=0.5. The reference r john was not used to int erpret this result as normal/abnormal . [facility] CenterVdlbontAVRMHOLIBU6327-64-76 11:23:00 Test Item Value Reference Range Interpretation Comments Monocytes # (test code 0.8 See_Comment [Aut omated message] The = Monocytes #) system which generated this result tra nsmitted reference range : <=0.8. The reference r john was not used to int erpret this result as normal/abnormal . [facility] CenterIajixypQNOWOVVOGA4652-90-96 11:23:00 Test Item Value Reference Range Interpretation Comments Neutrophils # (test code = Neutrophils 11.7 1.5-8.1 #) [facility] CenterDhubwzqBPIJLHRUKD5912-35-45 11:23:00 Test Item Value Reference Range Interpretation Comments Lymphocytes # (test code = Lymphocytes 1.9 1.0-5.5 #) [facility] CenterAiwjeddQGZCMOYAEN9175-23-52 11:23:00 Test Item Value Reference Range Interpretation Comments Monocytes (test code = Monocytes) 5.4 2.0-12.0 [facility] CenterLvsqugkUQCEWCSWSQ9602-45-07 11:23:00 Test Item Value Reference Range Interpretation Comments Platelet (test code = Platelet) 201 133-450 [facility] CenterQqdhdocJVYBAJZRHG2264-62-22 11:23:00 Test Item Value Reference Range Interpretation Comments MPV (test code = MPV) 8.0 7.4-10.4 [facility] CenterQuepdwyDTPTOVBDWJ5945-64-52 11:23:00 Test Item Value Reference Range Interpretation Comments MCHC (test code = MCHC) 33.7 32.0-36.0 [facility] CenterTtpqvqpDIAVVVXCNK1570-29-24 11:23:00 Test Item Value Reference Range Interpretation Comments RDW (test code = RDW) 14.7 11.5-14.5 [facility] CenterRkhxihuJUXNULGYJW4577-05-47 11:23:00 Test Item Value Reference Range Interpretation Comments MCV (test code = MCV) 84.3 80.0-98.0 [facility] CenterUabvsapLOSFFGLWWE9855-01-69 11:23:00 Test Item Value Reference Range Interpretation Comments MCH (test code = MCH) 28.4 pg 27.0-31.0 [facility] CenterMzwjalcEKXKESKKXP7283-85-45 11:23:00 Test Item Value Reference Range Interpretation Comments Hgb (test code = Hgb) 8.9 12.0-16.0 [facility] CenterUdhufpuXQTOIGGHHU3974-68-04 11:23:00 Test Item Value Reference Range Interpretation Comments WBC (test code = WBC) 14.6 3.7-10.4 [facility] CenterSddczqbFXXGVNPNPN0551-05-87 11:23:00 Test Item Value Reference Range Interpretation Comments Hct (test code = Hct) 26.4 36.0-48.0 [facility] CenterSmngvjdAFYCBGVYOC4305-94-38 11:23:00 Test Item Value Reference Range Interpretation Comments RBC (test code = RBC) 3.13 4.20-5.40 [facility] CenterSjaurxqYJHKHTTWLJ3653-38-04 11:23:00 Test Item Value Reference Range Interpretation Comments Eosinophils (test code = 1.5 See_Comment [A utomated message] The Eosinophils) system which ge nerated this result tra nsmitted reference range : <=4.0. The reference r john was not used to int erpret this result as normal/abnormal . [facility] CenterQblrivlIMYRZZGYSX7372-24-57 11:23:00 Test Item Value Reference Range Interpretation Comments Basophils (test code = 0.1 See_Comment [Aut omated message] The Basophils) system which ge nerated this result tra nsmitted reference range : <=1.0. The reference r john was not used to int erpret this result as normal/abnormal . [facility] CenterDpcxlnvNBJVVYUEWP0760-56-99 11:23:00 Test Item Value Reference Range Interpretation Comments Lymphocytes (test code = Lymphocytes) 13.1 20.0-40.0 [facility] CenterKdociohTZZZUXCGGY1829-19-52 11:23:00 Test Item Value Reference Range Interpretation Comments Segs (test code = Segs) 79.9 45.0-75.0 [facility] CenterYtvlfbhZHKTCHODNO2962-27-06 11:23:00 Test Item Value Reference Range Interpretation Comments Eosinophils # (test code 0.2 See_Comment [A utomated message] The = Eosinophils #) system whic h generated this result tra nsmitted reference range : <=0.5. The reference r john was not used to int erpret this result as normal/abnormal . [facility] CenterPhburszMCSVGTAHAF6163-17-23 11:23:00 Test Item Value Reference Range Interpretation Comments Monocytes # (test code 0.8 See_Comment [Aut omated message] The = Monocytes #) system which generated this result tra nsmitted reference range : <=0.8. The reference r john was not used to int erpret this result as normal/abnormal . [facility] CenterQvjaqmtVGPWTOLBTR8408-75-12 11:23:00 Test Item Value Reference Range Interpretation Comments Neutrophils # (test code = Neutrophils 11.7 1.5-8.1 #) [facility] CenterYybnqbcYSSTBEGXLH1504-34-32 11:23:00 Test Item Value Reference Range Interpretation Comments Lymphocytes # (test code = Lymphocytes 1.9 1.0-5.5 #) [facility] CenterKpmzwfcBUMGGHXVCC6496-43-37 11:23:00 Test Item Value Reference Range Interpretation Comments Monocytes (test code = Monocytes) 5.4 2.0-12.0 [facility] CenterVspbdhdCWVMVWDOJF4659-60-85 11:23:00 Test Item Value Reference Range Interpretation Comments Platelet (test code = Platelet) 201 133-450 [facility] CenterAkrpzadMTKYCXALGZ4023-49-06 11:23:00 Test Item Value Reference Range Interpretation Comments MPV (test code = MPV) 8.0 7.4-10.4 [facility] CenterQmfurxuLZLWFJPMEN9482-27-33 11:23:00 Test Item Value Reference Range Interpretation Comments MCHC (test code = MCHC) 33.7 32.0-36.0 [facility] CenterMilkruwAZILOJNKNO4437-28-64 11:23:00 Test Item Value Reference Range Interpretation Comments RDW (test code = RDW) 14.7 11.5-14.5 [facility] CenterRgtjajuNDYFHQSKXA2152-74-28 11:23:00 Test Item Value Reference Range Interpretation Comments MCV (test code = MCV) 84.3 80.0-98.0 [facility] CenterWkxazkwPSXOZVGMFP3018-36-58 11:23:00 Test Item Value Reference Range Interpretation Comments MCH (test code = MCH) 28.4 pg 27.0-31.0 [facility] CenterCfwygegLREZFQDXGH9596-56-05 11:23:00 Test Item Value Reference Range Interpretation Comments Hgb (test code = Hgb) 8.9 12.0-16.0 [facility] CenterQleniwmRPEXBUPROB0358-10-65 11:23:00 Test Item Value Reference Range Interpretation Comments WBC (test code = WBC) 14.6 3.7-10.4 [facility] CenterYlocscaVARUMGCNPF1478-22-96 11:23:00 Test Item Value Reference Range Interpretation Comments Hct (test code = Hct) 26.4 36.0-48.0 [facility] CenterDdtyghxVYTVQIPQSE9498-38-94 11:23:00 Test Item Value Reference Range Interpretation Comments RBC (test code = RBC) 3.13 4.20-5.40 [facility] CenterPyrnhjjTCMRKFSDZI5191-30-61 11:23:00 Test Item Value Reference Range Interpretation Comments Eosinophils (test code = 1.5 See_Comment [A utomated message] The Eosinophils) system which ge nerated this result tra nsmitted reference range : <=4.0. The reference r john was not used to int erpret this result as normal/abnormal . [facility] CenterIsltbphPQISYMSHMB1662-46-49 11:23:00 Test Item Value Reference Range Interpretation Comments Basophils (test code = 0.1 See_Comment [Aut omated message] The Basophils) system which ge nerated this result tra nsmitted reference range : <=1.0. The reference r john was not used to int erpret this result as normal/abnormal . [facility] CenterMjumhwgRFQKWBLCIH2810-21-31 11:23:00 Test Item Value Reference Range Interpretation Comments Lymphocytes (test code = Lymphocytes) 13.1 20.0-40.0 [facility] CenterMjegfizTAOADCZDSW5520-01-02 11:23:00 Test Item Value Reference Range Interpretation Comments Segs (test code = Segs) 79.9 45.0-75.0 [facility] CenterGhclmjdTLQBCIRHEN0558-59-95 11:23:00 Test Item Value Reference Range Interpretation Comments Eosinophils # (test code 0.2 See_Comment [A utomated message] The = Eosinophils #) system whic h generated this result tra nsmitted reference range : <=0.5. The reference r john was not used to int erpret this result as normal/abnormal . [facility] CenterZzebtljNSALPZYDYI7344-44-52 11:23:00 Test Item Value Reference Range Interpretation Comments Monocytes # (test code 0.8 See_Comment [Aut omated message] The = Monocytes #) system which generated this result tra nsmitted reference range : <=0.8. The reference r john was not used to int erpret this result as normal/abnormal . [facility] CenterNgusolwZEHWKZSXHQ7385-89-19 11:23:00 Test Item Value Reference Range Interpretation Comments Neutrophils # (test code = Neutrophils 11.7 1.5-8.1 #) [facility] CenterBrwtwzqUMFWXULPCM2162-39-12 11:23:00 Test Item Value Reference Range Interpretation Comments Lymphocytes # (test code = Lymphocytes 1.9 1.0-5.5 #) [facility] CenterYcwbccwJGINUANHXW6922-86-41 11:23:00 Test Item Value Reference Range Interpretation Comments Monocytes (test code = Monocytes) 5.4 2.0-12.0 [facility] CenterOpeuflvJXXPJDIUNA0606-11-26 11:23:00 Test Item Value Reference Range Interpretation Comments Platelet (test code = Platelet) 201 133-450 [facility] CenterEzvpngwKPDFBUDUZI8597-51-86 11:23:00 Test Item Value Reference Range Interpretation Comments MPV (test code = MPV) 8.0 7.4-10.4 [facility] CenterCkdzmuuGZAWOEFDYA2966-12-56 11:23:00 Test Item Value Reference Range Interpretation Comments MCHC (test code = MCHC) 33.7 32.0-36.0 [facility] CenterMapzhcdGZWBTPYIXF4603-07-43 11:23:00 Test Item Value Reference Range Interpretation Comments RDW (test code = RDW) 14.7 11.5-14.5 [facility] CenterUhqwefsMEBRJQGTWO4310-00-74 11:23:00 Test Item Value Reference Range Interpretation Comments MCV (test code = MCV) 84.3 80.0-98.0 [facility] CenterEdrbzpoDBLKWKDIJP0963-80-72 11:23:00 Test Item Value Reference Range Interpretation Comments MCH (test code = MCH) 28.4 pg 27.0-31.0 [facility] CenterYkgoxvfRPZQMVMTUT9023-29-14 11:23:00 Test Item Value Reference Range Interpretation Comments Hgb (test code = Hgb) 8.9 12.0-16.0 [facility] CenterWcbytwxNOLLSTSKPV7021-97-55 11:23:00 Test Item Value Reference Range Interpretation Comments WBC (test code = WBC) 14.6 3.7-10.4 [facility] CenterMnrbpdnGVSNHJLWKS4112-06-87 11:23:00 Test Item Value Reference Range Interpretation Comments Hct (test code = Hct) 26.4 36.0-48.0 [facility] CenterAdqphufPTNTBWEEPY0102-80-67 11:23:00 Test Item Value Reference Range Interpretation Comments RBC (test code = RBC) 3.13 4.20-5.40 [facility] CenterIxxbmoiWQSHWNVVSO0409-90-84 11:23:00 Test Item Value Reference Range Interpretation Comments Eosinophils (test code = Eosinophils) 1.5 <=4.0 [facility] CenterErhsgnaGVJLIJHXNX5122-91-87 11:23:00 Test Item Value Reference Range Interpretation Comments Basophils (test code = Basophils) 0.1 <=1.0 [facility] CenterCgvwjirDXFSDCWAES2130-88-82 11:23:00 Test Item Value Reference Range Interpretation Comments Lymphocytes (test code = Lymphocytes) 13.1 20.0-40.0 [facility] CenterMsmjijrCMWAMTXSYO3860-02-17 11:23:00 Test Item Value Reference Range Interpretation Comments Segs (test code = Segs) 79.9 45.0-75.0 [facility] CenterPuugitzXXIIENGPCD8778-03-90 11:23:00 Test Item Value Reference Range Interpretation Comments Eosinophils # (test code = Eosinophils 0.2 <=0.5 #) [facility] CenterWefmgmfNTDKJGNSCW8298-32-59 11:23:00 Test Item Value Reference Range Interpretation Comments Monocytes # (test code = Monocytes #) 0.8 <=0.8 [facility] CenterPwuruesSEBJQNYLCT9753-55-99 11:23:00 Test Item Value Reference Range Interpretation Comments Neutrophils # (test code = Neutrophils 11.7 1.5-8.1 #) [facility] CenterRxghgvvNUQWOMMQHO9638-29-17 11:23:00 Test Item Value Reference Range Interpretation Comments Lymphocytes # (test code = Lymphocytes 1.9 1.0-5.5 #) [facility] CenterGqcvskmXRYHCTJWDH3035-11-63 11:23:00 Test Item Value Reference Range Interpretation Comments Monocytes (test code = Monocytes) 5.4 2.0-12.0 [facility] CenterRjyichmDWMCVMXQRO5217-81-96 10:59:00 Test Item Value Reference Range Interpretation Comments Hct (test code = Hct) 28.3 36.0-48.0 [facility] CenterVpooneqSCFNAULWNT4621-91-70 10:59:00 Test Item Value Reference Range Interpretation Comments Hgb (test code = Hgb) 9.4 12.0-16.0 [facility] CenterOpeorinPOPFUCISXM6145-28-50 10:59:00 Test Item Value Reference Range Interpretation Comments Hct (test code = Hct) 28.3 36.0-48.0 [facility] CenterYokaassWHDKBRMSSM8124-60-80 10:59:00 Test Item Value Reference Range Interpretation Comments Hgb (test code = Hgb) 9.4 12.0-16.0 [facility] CenterPzaxrvxJWTVYFELSX7391-25-09 10:59:00 Test Item Value Reference Range Interpretation Comments Hct (test code = Hct) 28.3 36.0-48.0 [facility] CenterAdtcwgoGTEXXTOLEW5024-65-46 10:59:00 Test Item Value Reference Range Interpretation Comments Hgb (test code = Hgb) 9.4 12.0-16.0 [facility] CenterPykluaoCKIGGBFCUI4554-63-41 10:59:00 Test Item Value Reference Range Interpretation Comments Hct (test code = Hct) 28.3 36.0-48.0 [facility] CenterLukjaguVOLKXUPWAO4259-52-11 10:59:00 Test Item Value Reference Range Interpretation Comments Hgb (test code = Hgb) 9.4 12.0-16.0 [facility] CenterBpyjazrQCVMHTTHBK6800-41-99 10:59:00 Test Item Value Reference Range Interpretation Comments Hct (test code = Hct) 28.3 36.0-48.0 [facility] CenterQnqgvycSQYGYJBNLC7649-94-44 10:59:00 Test Item Value Reference Range Interpretation Comments Hgb (test code = Hgb) 9.4 12.0-16.0 [facility] CenterHuhswmqEUUGKEPESR6939-49-09 01:25:00 Test Item Value Reference Range Interpretation Comments Hct (test code = Hct) 31.5 36.0-48.0 [facility] CenterOhukqagIOYXXZGMUV5994-28-56 01:25:00 Test Item Value Reference Range Interpretation Comments Hgb (test code = Hgb) 10.4 12.0-16.0 [facility] CenterLtiwuglYWOBEEQNVA0113-11-97 01:25:00 Test Item Value Reference Range Interpretation Comments Hct (test code = Hct) 31.5 36.0-48.0 [facility] CenterCmbuvglYHWAPUMYLW1018-26-32 01:25:00 Test Item Value Reference Range Interpretation Comments Hgb (test code = Hgb) 10.4 12.0-16.0 [facility] [id number] 01:25:00 Test Item Value Reference Range Interpretation Comments Hct (test code = Hct) 31.5 36.0-48.0 [id number] 01:25:00 Test Item Value Reference Range Interpretation Comments Hgb (test code = Hgb) 10.4 12.0-16.0 [id number] 01:25:00 Test Item Value Reference Range Interpretation Comments Hct (test code = Hct) 31.5 36.0-48.0 [facility] [id number] 01:25:00 Test Item Value Reference Range Interpretation Comments Hgb (test code = Hgb) 10.4 12.0-16.0 [id number] 01:25:00 Test Item Value Reference Range Interpretation Comments Hct (test code = Hct) 31.5 36.0-48.0 [facility] [id number] 01:25:00 Test Item Value Reference Range Interpretation Comments Hgb (test code = Hgb) 10.4 12.0-16.0 [facility] [id number] 22:00:34 Test Item Value Reference Range Interpretation Comments SCREEN (test code Neg (06/18/18 5:00 PM) = SCREEN) [facility] CampusVubiquityOmnidrive [id number] 22:00:34 Test Item Value Reference Range Interpretation Comments ABO/Rh (test code = ABO/Rh) O NEG [facility] [id number] 22:00:34 Test Item Value Reference Range Interpretation Comments SCREEN (test code Neg (06/18/18 5:00 PM) = SCREEN) [facility] [id number] 22:00:34 Test Item Value Reference Range Interpretation Comments ABO/Rh (test code = ABO/Rh) O NEG [facility] [id number] 22:00:34 Test Item Value Reference Range Interpretation Comments SCREEN (test code Neg (06/18/18 5:00 PM) = SCREEN) [facility] [id number] 22:00:34 Test Item Value Reference Range Interpretation Comments ABO/Rh (test code = ABO/Rh) O NEG [facility] [id number] 22:00:34 Test Item Value Reference Range Interpretation Comments SCREEN (test code Neg (06/18/18 5:00 PM) = SCREEN) [facility] [id number] 22:00:34 Test Item Value Reference Range Interpretation Comments ABO/Rh (test code = ABO/Rh) O NEG [facility] [id number] 22:00:34 Test Item Value Reference Range Interpretation Comments SCREEN (test code Neg (06/18/18 5:00 PM) = SCREEN) [facility] [id number] 22:00:34 Test Item Value Reference Range Interpretation Comments ABO/Rh (test code = ABO/Rh) O NEG [facility] [id number] 21:44:00 Test Item Value Reference Range Interpretation Comments Rhig (test code = Product available Rhig) (06/18/18 4:44 PM) [facility] [id number] 21:44:00 Test Item Value Reference Range Interpretation Comments Rhig (test code = Product available Rhig) (06/18/18 4:44 PM) [facility] [id number] 21:44:00 Test Item Value Reference Range Interpretation Comments Rhig (test code = Product available Rhig) (06/18/18 4:44 PM) [facility] [id number] 21:44:00 Test Item Value Reference Range Interpretation Comments Rhig (test code = Product available Rhig) (06/18/18 4:44 PM) [facility] [id number] 21:44:00 Test Item Value Reference Range Interpretation Comments Rhig (test code = Product available Rhig) (06/18/18 4:44 PM) [facility] [id number] 18:20:00 Test Item Value Reference Range Interpretation Comments RBC product (test code Product available = RBC product) (06/18/18 1:20 PM) [facility] [id number] 18:20:00 Test Item Value Reference Range Interpretation Comments RBC product (test code Product available = RBC product) (06/18/18 1:20 PM) [facility] [id number] 18:20:00 Test Item Value Reference Range Interpretation Comments RBC product (test code Product available = RBC product) (06/18/18 1:20 PM) [facility] [id number] 18:20:00 Test Item Value Reference Range Interpretation Comments RBC product (test code Product available = RBC product) (06/18/18 1:20 PM) [facility] [id number] 18:20:00 Test Item Value Reference Range Interpretation Comments RBC product (test code Product available = RBC product) (06/18/18 1:20 PM) [facility]2019-03-23 05:42:00 Test Item Value Reference Range Interpretation Comments eGFR (test code = eGFR) 117 [facility]2019-03-23 05:42:00 Test Item Value Reference Range Interpretation Comments B/C Ratio (test code = B/C Ratio) 12 1 6-25 [facility]2019-03-23 05:42:00 Test Item Value Reference Range Interpretation Comments Globulin (test code = Globulin) 4.3 2.7-4.2 [facility]2019-03-23 05:42:00 Test Item Value Reference Range Interpretation Comments Bili Total (test code = Bili Total) 0.1 0.2-1.3 [facility]2019-03-23 05:42:00 Test Item Value Reference Range Interpretation Comments AGAP (test code = AGAP) 14.9 10.0-20.0 [facility]2019-03-23 05:42:00 Test Item Value Reference Range Interpretation Comments A/G Ratio (test code = A/G Ratio) 0.6 1 0.7-1.6 [facility]2019-03-23 05:42:00 Test Item Value Reference Range Interpretation Comments Glucose Lvl (test code = Glucose Lvl) 82 70-99 [facility]2019-03-23 05:42:00 Test Item Value Reference Range Interpretation Comments BUN (test code = BUN) 9 7-22 [facility]2019-03-23 05:42:00 Test Item Value Reference Range Interpretation Comments Creatinine Lvl (test code = Creatinine 0.72 0.50-1.40 Lvl) [facility]2019-03-23 05:42:00 Test Item Value Reference Range Interpretation Comments Total Protein (test code = Total 6.8 6.4-8.4 Protein) [facility]2019-03-23 05:42:00 Test Item Value Reference Range Interpretation Comments Albumin Lvl (test code = Albumin Lvl) 2.5 3.5-5.0 [facility]2019-03-23 05:42:00 Test Item Value Reference Range Interpretation Comments ALT (test code = ALT) 12 See_Comment [Auto mated message] The system which ge nerated this result transmit kayley reference range : <=65. The reference range was not used to interpr et this result as birsa l/abnormal. [facility]2019-03-23 05:42:00 Test Item Value Reference Range Interpretation Comments AST (test code = AST) 20 See_Comment [Auto mated message] The system which ge nerated this result transmit kayley reference range : <=37. The reference range was not used to interpr et this result as brisa l/abnormal. [facility]2019-03-23 05:42:00 Test Item Value Reference Range Interpretation Comments Alk Phos (test code = Alk Phos) 200 39-136 [facility] [id number] 05:42:00 Test Item Value Reference Range Interpretation Comments Sodium Lvl (test code = Sodium Lvl) 139 135-145 [facility] [id number] 05:42:00 Test Item Value Reference Range Interpretation Comments Potassium Lvl (test code = Potassium 3.9 3.5-5.1 Lvl) [facility] [id number] 05:42:00 Test Item Value Reference Range Interpretation Comments Chloride Lvl (test code = Chloride Lvl) 106 95-109 [facility] [id number] 05:42:00 Test Item Value Reference Range Interpretation Comments CO2 (test code = CO2) 22 24-32 [facility] [id number] 05:42:00 Test Item Value Reference Range Interpretation Comments Calcium Lvl (test code = Calcium Lvl) 9.0 8.5-10.5 [facility]2019-03-23 05:42:00 Test Item Value Reference Range Interpretation Comments U Prot/Creat (test code = U 0.15 1 Prot/Creat) [facility]2019-03-23 05:42:00 Test Item Value Reference Range Interpretation Comments U Protein (test code = U Protein) 13.4 [facility] [id number] 05:42:00 Test Item Value Reference Range Interpretation Comments U Creatinine (test code = U Creatinine) 87.20 [facility] [id number] 05:42:00 Test Item Value Reference Range Interpretation Comments eGFR (test code = eGFR) 117 [facility]2019-03-23 05:42:00 Test Item Value Reference Range Interpretation Comments B/C Ratio (test code = B/C Ratio) 12 1 6-25 [facility]2019-03-23 05:42:00 Test Item Value Reference Range Interpretation Comments Globulin (test code = Globulin) 4.3 2.7-4.2 [place]459-03-23 05:42:00 Test Item Value Reference Range Interpretation Comments Bili Total (test code = Bili Total) 0.1 0.2-1.3 [place] 328459-03-23 05:42:00 Test Item Value Reference Range Interpretation Comments AGAP (test code = AGAP) 14.9 10.0-20.0 [place] 328459-03-23 05:42:00 Test Item Value Reference Range Interpretation Comments A/G Ratio (test code = A/G Ratio) 0.6 1 0.7-1.6 [place] 328459-03-23 05:42:00 Test Item Value Reference Range Interpretation Comments Glucose Lvl (test code = Glucose Lvl) 82 70-99 [place] 328459-03-23 05:42:00 Test Item Value Reference Range Interpretation Comments BUN (test code = BUN) 9 7-22 [place] 328459-03-23 05:42:00 Test Item Value Reference Range Interpretation Comments Creatinine Lvl (test code = Creatinine 0.72 0.50-1.40 Lvl) [place] 328459-03-23 05:42:00 Test Item Value Reference Range Interpretation Comments Total Protein (test code = Total 6.8 6.4-8.4 Protein) [place] 328459-03-23 05:42:00 Test Item Value Reference Range Interpretation Comments Albumin Lvl (test code = Albumin Lvl) 2.5 3.5-5.0 [place] 328459-03-23 05:42:00 Test Item Value Reference Range Interpretation Comments ALT (test code = ALT) 12 See_Comment [Auto mated message] The system which ge nerated this result transmit kayley reference range : <=65. The reference range was not used to interpr et this result as brisa l/abnormal. [place] 328459-03-23 05:42:00 Test Item Value Reference Range Interpretation Comments AST (test code = AST) 20 See_Comment [Auto mated message] The system which ge nerated this result transmit kayley reference range : <=37. The reference range was not used to interpr et this result as brisa l/abnormal. [facility]2019-03-23 05:42:00 Test Item Value Reference Range Interpretation Comments Alk Phos (test code = Alk Phos) 200 39-136 [facility]2019-03-23 05:42:00 Test Item Value Reference Range Interpretation Comments Sodium Lvl (test code = Sodium Lvl) 139 135-145 [facility]2019-03-23 05:42:00 Test Item Value Reference Range Interpretation Comments Potassium Lvl (test code = Potassium 3.9 3.5-5.1 Lvl) [facility]2019-03-23 05:42:00 Test Item Value Reference Range Interpretation Comments Chloride Lvl (test code = Chloride Lvl) 106 95-109 [facility]2019-03-23 05:42:00 Test Item Value Reference Range Interpretation Comments CO2 (test code = CO2) 22 24-32 [facility]2019-03-23 05:42:00 Test Item Value Reference Range Interpretation Comments Calcium Lvl (test code = Calcium Lvl) 9.0 8.5-10.5 [facility]2019-03-23 05:42:00 Test Item Value Reference Range Interpretation Comments U Prot/Creat (test code = U 0.15 1 Prot/Creat) [facility]2019-03-23 05:42:00 Test Item Value Reference Range Interpretation Comments U Protein (test code = U Protein) 13.4 [facility]2019-03-23 05:42:00 Test Item Value Reference Range Interpretation Comments U Creatinine (test code = U Creatinine) 87.20 [facility]2019-03-23 05:42:00 Test Item Value Reference Range Interpretation Comments eGFR (test code = eGFR) 117 [facility]2019-03-23 05:42:00 Test Item Value Reference Range Interpretation Comments B/C Ratio (test code = B/C Ratio) 12 1 6-25 [facility]2019-03-23 05:42:00 Test Item Value Reference Range Interpretation Comments Globulin (test code = Globulin) 4.3 2.7-4.2 [facility]2019-03-23 05:42:00 Test Item Value Reference Range Interpretation Comments Bili Total (test code = Bili Total) 0.1 0.2-1.3 [facility]2019-03-23 05:42:00 Test Item Value Reference Range Interpretation Comments AGAP (test code = AGAP) 14.9 10.0-20.0 [facility]2019-03-23 05:42:00 Test Item Value Reference Range Interpretation Comments A/G Ratio (test code = A/G Ratio) 0.6 1 0.7-1.6 [facility]2019-03-23 05:42:00 Test Item Value Reference Range Interpretation Comments Glucose Lvl (test code = Glucose Lvl) 82 70-99 [facility]2019-03-23 05:42:00 Test Item Value Reference Range Interpretation Comments BUN (test code = BUN) 9 7-22 [facility]2019-03-23 05:42:00 Test Item Value Reference Range Interpretation Comments Creatinine Lvl (test code = Creatinine 0.72 0.50-1.40 Lvl) [facility]2019-03-23 05:42:00 Test Item Value Reference Range Interpretation Comments Total Protein (test code = Total 6.8 6.4-8.4 Protein) [facility]2019-03-23 05:42:00 Test Item Value Reference Range Interpretation Comments Albumin Lvl (test code = Albumin Lvl) 2.5 3.5-5.0 [facility]2019-03-23 05:42:00 Test Item Value Reference Range Interpretation Comments ALT (test code = ALT) 12 See_Comment [Auto mated message] The system which ge nerated this result transmit kayley reference range : <=65. The reference range was not used to interpr et this result as brisa l/abnormal. [facility]2019-03-23 05:42:00 Test Item Value Reference Range Interpretation Comments AST (test code = AST) 20 See_Comment [Auto mated message] The system which ge nerated this result transmit kayley reference range : <=37. The reference range was not used to interpr et this result as brisa l/abnormal. [facility]2019-03-23 05:42:00 Test Item Value Reference Range Interpretation Comments Alk Phos (test code = Alk Phos) 200 39-136 [facility]2019-03-23 05:42:00 Test Item Value Reference Range Interpretation Comments Sodium Lvl (test code = Sodium Lvl) 139 135-145 [facility]2019-03-23 05:42:00 Test Item Value Reference Range Interpretation Comments Potassium Lvl (test code = Potassium 3.9 3.5-5.1 Lvl) [facility]2019-03-23 05:42:00 Test Item Value Reference Range Interpretation Comments Chloride Lvl (test code = Chloride Lvl) 106 95-109 [facility]2019-03-23 05:42:00 Test Item Value Reference Range Interpretation Comments CO2 (test code = CO2) 22 24-32 [facility]2019-03-23 05:42:00 Test Item Value Reference Range Interpretation Comments Calcium Lvl (test code = Calcium Lvl) 9.0 8.5-10.5 [facility]2019-03-23 05:42:00 Test Item Value Reference Range Interpretation Comments U Prot/Creat (test code = U 0.15 1 Prot/Creat) [facility]2019-03-23 05:42:00 Test Item Value Reference Range Interpretation Comments U Protein (test code = U Protein) 13.4 [facility]2019-03-23 05:42:00 Test Item Value Reference Range Interpretation Comments U Creatinine (test code = U Creatinine) 87.20 [facility]2019-03-23 05:42:00 Test Item Value Reference Range Interpretation Comments eGFR (test code = eGFR) 117 [facility]2019-03-23 05:42:00 Test Item Value Reference Range Interpretation Comments B/C Ratio (test code = B/C Ratio) 12 1 6-25 [facility]2019-03-23 05:42:00 Test Item Value Reference Range Interpretation Comments Globulin (test code = Globulin) 4.3 2.7-4.2 [facility]2019-03-23 05:42:00 Test Item Value Reference Range Interpretation Comments Bili Total (test code = Bili Total) 0.1 0.2-1.3 [facility]2019-03-23 05:42:00 Test Item Value Reference Range Interpretation Comments AGAP (test code = AGAP) 14.9 10.0-20.0 [facility]2019-03-23 05:42:00 Test Item Value Reference Range Interpretation Comments A/G Ratio (test code = A/G Ratio) 0.6 1 0.7-1.6 [facility]2019-03-23 05:42:00 Test Item Value Reference Range Interpretation Comments Glucose Lvl (test code = Glucose Lvl) 82 70-99 [facility]2019-03-23 05:42:00 Test Item Value Reference Range Interpretation Comments BUN (test code = BUN) 9 7-22 [place] 328459-03-23 05:42:00 Test Item Value Reference Range Interpretation Comments Creatinine Lvl (test code = Creatinine 0.72 0.50-1.40 Lvl) [facility]2019-03-23 05:42:00 Test Item Value Reference Range Interpretation Comments Total Protein (test code = Total 6.8 6.4-8.4 Protein) [facility]2019-03-23 05:42:00 Test Item Value Reference Range Interpretation Comments Albumin Lvl (test code = Albumin Lvl) 2.5 3.5-5.0 [place] 328459-03-23 05:42:00 Test Item Value Reference Range Interpretation Comments ALT (test code = ALT) 12 See_Comment [Auto mated message] The system which ge nerated this result transmit kayley reference range : <=65. The reference range was not used to interpr et this result as brisa l/abnormal. [facility]2019-03-23 05:42:00 Test Item Value Reference Range Interpretation Comments AST (test code = AST) 20 See_Comment [Auto mated message] The system which ge nerated this result transmit kayley reference range : <=37. The reference range was not used to interpr et this result as brisa l/abnormal. [facility]2019-03-23 05:42:00 Test Item Value Reference Range Interpretation Comments Alk Phos (test code = Alk Phos) 200 39-136 [facility]2019-03-23 05:42:00 Test Item Value Reference Range Interpretation Comments Sodium Lvl (test code = Sodium Lvl) 139 135-145 [facility]2019-03-23 05:42:00 Test Item Value Reference Range Interpretation Comments Potassium Lvl (test code = Potassium 3.9 3.5-5.1 Lvl) [facility]2019-03-23 05:42:00 Test Item Value Reference Range Interpretation Comments Chloride Lvl (test code = Chloride Lvl) 106 95-109 [facility]2019-03-23 05:42:00 Test Item Value Reference Range Interpretation Comments CO2 (test code = CO2) 22 24-32 [facility]2019-03-23 05:42:00 Test Item Value Reference Range Interpretation Comments Calcium Lvl (test code = Calcium Lvl) 9.0 8.5-10.5 [facility]2019-03-23 05:42:00 Test Item Value Reference Range Interpretation Comments U Prot/Creat (test code = U 0.15 1 Prot/Creat) [facility]2019-03-23 05:42:00 Test Item Value Reference Range Interpretation Comments U Protein (test code = U Protein) 13.4 [facility]2019-03-23 05:42:00 Test Item Value Reference Range Interpretation Comments U Creatinine (test code = U Creatinine) 87.20 [facility]2019-03-23 05:42:00 Test Item Value Reference Range Interpretation Comments eGFR (test code = eGFR) 117 [facility]2019-03-23 05:42:00 Test Item Value Reference Range Interpretation Comments B/C Ratio (test code = B/C Ratio) 12 1 6-25 [facility]2019-03-23 05:42:00 Test Item Value Reference Range Interpretation Comments Globulin (test code = Globulin) 4.3 2.7-4.2 [facility]2019-03-23 05:42:00 Test Item Value Reference Range Interpretation Comments Bili Total (test code = Bili Total) 0.1 0.2-1.3 [facility]2019-03-23 05:42:00 Test Item Value Reference Range Interpretation Comments AGAP (test code = AGAP) 14.9 10.0-20.0 [facility]2019-03-23 05:42:00 Test Item Value Reference Range Interpretation Comments A/G Ratio (test code = A/G Ratio) 0.6 1 0.7-1.6 [facility]2019-03-23 05:42:00 Test Item Value Reference Range Interpretation Comments Glucose Lvl (test code = Glucose Lvl) 82 70-99 [facility]2019-03-23 05:42:00 Test Item Value Reference Range Interpretation Comments BUN (test code = BUN) 9 7-22 [facility]2019-03-23 05:42:00 Test Item Value Reference Range Interpretation Comments Creatinine Lvl (test code = Creatinine 0.72 0.50-1.40 Lvl) [facility]2019-03-23 05:42:00 Test Item Value Reference Range Interpretation Comments Total Protein (test code = Total 6.8 6.4-8.4 Protein) [facility]2019-03-23 05:42:00 Test Item Value Reference Range Interpretation Comments Albumin Lvl (test code = Albumin Lvl) 2.5 3.5-5.0 [facility]2019-03-23 05:42:00 Test Item Value Reference Range Interpretation Comments ALT (test code = ALT) 12 <=65 [facility]2019-03-23 05:42:00 Test Item Value Reference Range Interpretation Comments AST (test code = AST) 20 <=37 [facility]2019-03-23 05:42:00 Test Item Value Reference Range Interpretation Comments Alk Phos (test code = Alk Phos) 200 39-136 [facility]2019-03-23 05:42:00 Test Item Value Reference Range Interpretation Comments Sodium Lvl (test code = Sodium Lvl) 139 135-145 [facility]2019-03-23 05:42:00 Test Item Value Reference Range Interpretation Comments Potassium Lvl (test code = Potassium 3.9 3.5-5.1 Lvl) [facility]2019-03-23 05:42:00 Test Item Value Reference Range Interpretation Comments Chloride Lvl (test code = Chloride Lvl) 106 95-109 [facility]2019-03-23 05:42:00 Test Item Value Reference Range Interpretation Comments CO2 (test code = CO2) 22 24-32 [facility]2019-03-23 05:42:00 Test Item Value Reference Range Interpretation Comments Calcium Lvl (test code = Calcium Lvl) 9.0 8.5-10.5 [facility] [id number] 05:42:00 Test Item Value Reference Range Interpretation Comments U Prot/Creat (test code = U 0.15 1 Prot/Creat) [facility] [id number] 05:42:00 Test Item Value Reference Range Interpretation Comments U Protein (test code = U Protein) 13.4 [facility]2019-03-23 05:42:00 Test Item Value Reference Range Interpretation Comments U Creatinine (test code = U Creatinine) 87.20 [facility] [id number] 00:32:00 Test Item Value Reference Range Interpretation Comments AB Int (test code = AB Int) Rhig Anti-D [facility] [id number] 00:32:00 Test Item Value Reference Range Interpretation Comments Path AB (test TRANSFUSION MEDICINE code = Path AB) PHYSICIAN SERVICES Patient is an O, Rh-negative, 22 y/o at 39w2d with h/o cocaine abuse who presents for scheduled IOL. Immunohematologic testing demonstrates the presence of an anti-D in this patient s serum. This antibody is directed against the D antigen of the "Rh" blood group system and is typically IgG in nature. Although usually considered clinically significant, the presence of this antibody most likely represents passive immunization due to Rh Immune Globulin administration (by history given on 05/23/18). Should RBC transfusion be required, Rh-negative crossmatch-compatible units will be issued. No difficulty in obtaining compatible blood is expected. The patient s electronic medical record has been reviewed for relevant information. I have reviewed the test results and concur with the resident Dr. Mason's interpretation. CPT: 97450-TP [facility] [id number] 00:32:00 Test Item Value Reference Range Interpretation Comments ABO/Rh (test code = ABO/Rh) O NEG [facility] [id number] 00:32:00 Test Item Value Reference Range Interpretation Comments Antibody Scrn (test Positive 1(06/17/18 code = Antibody Scrn) 7:32 PM) [facility] [id number] 00:32:00 Test Item Value Reference Range Interpretation Comments U Amph Scr (test code Negative *NA*(06/17/18 = U Amph Scr) 7:32 PM) [facility] [id number] 00:32:00 Test Item Value Reference Range Interpretation Comments U Duyen Scr (test code Negative *NA*(06/17/18 = U Duyen Scr) 7:32 PM) [facility] [id number] 00:32:00 Test Item Value Reference Range Interpretation Comments U Propoxyph Scr (test Negative *NA*(06/17/18 code = U Propoxyph Scr) 7:32 PM) [facility] [id number] 00:32:00 Test Item Value Reference Range Interpretation Comments U Ethanol Scr (test Negative *NA*(06/17/18 code = U Ethanol Scr) 7:32 PM) [facility] [id number] 00:32:00 Test Item Value Reference Range Interpretation Comments U Cannab Scr (test Negative *NA*(06/17/18 code = U Cannab Scr) 7:32 PM) [facility] [id number] 00:32:00 Test Item Value Reference Range Interpretation Comments U Cocaine Scr (test Negative *NA*(06/17/18 code = U Cocaine Scr) 7:32 PM) [facility] [id number] 00:32:00 Test Item Value Reference Range Interpretation Comments U Benzodiaz Scr (test Negative *NA*(06/17/18 code = U Benzodiaz Scr) 7:32 PM) [facility] [id number] 00:32:00 Test Item Value Reference Range Interpretation Comments U Methadone Scr (test Negative *NA*(06/17/18 code = U Methadone Scr) 7:32 PM) [facility] [id number] 00:32:00 Test Item Value Reference Range Interpretation Comments UDS Note (test code = See Note (06/17/18 7:32 UDS Note) PM) [facility] [id number] 00:32:00 Test Item Value Reference Range Interpretation Comments U Opiate Scr (test Negative *NA*(06/17/18 code = U Opiate Scr) 7:32 PM) [facility] [id number] 00:32:00 Test Item Value Reference Range Interpretation Comments U Phencyclidine Scr (test Negative code = U Phencyclidine *NA*(06/17/18 7:32 Scr) PM) [facility]FodbjcdZTDZEOEECK4574-20-79 00:32:00 Test Item Value Reference Range Interpretation Comments Eosinophils # (test code 0.2 See_Comment [A utomated message] The = Eosinophils #) system whic h generated this result tra nsmitted reference range : <=0.5. The reference r john was not used to int erpret this result as normal/abnormal . [facility] CenterGgmotbtFXGCNGWPCM0070-76-94 00:32:00 Test Item Value Reference Range Interpretation Comments Basophils (test code = 0.3 See_Comment [Aut omated message] The Basophils) system which ge nerated this result tra nsmitted reference range : <=1.0. The reference r john was not used to int erpret this result as normal/abnormal . [facility] CenterAtwcdvwTOWNEEXHMD5868-88-64 00:32:00 Test Item Value Reference Range Interpretation Comments Eosinophils (test code = 1.7 See_Comment [A utomated message] The Eosinophils) system which ge nerated this result tra nsmitted reference range : <=4.0. The reference r john was not used to int erpret this result as normal/abnormal . [facility] CenterGkuxtakRQCKLOGRMM3509-66-36 00:32:00 Test Item Value Reference Range Interpretation Comments Monocytes # (test code 0.6 See_Comment [Aut omated message] The = Monocytes #) system which generated this result tra nsmitted reference range : <=0.8. The reference r john was not used to int erpret this result as normal/abnormal . [facility] CenterWurusbcPOBCGSSJFU9556-28-42 00:32:00 Test Item Value Reference Range Interpretation Comments Neutrophils # (test code = Neutrophils 7.7 1.5-8.1 #) [facility] CenterEhssxunOFQGFZMARA2307-72-69 00:32:00 Test Item Value Reference Range Interpretation Comments Lymphocytes # (test code = Lymphocytes 2.5 1.0-5.5 #) [facility] CenterOimohvqXUTTQCQBYH3543-68-00 00:32:00 Test Item Value Reference Range Interpretation Comments Segs (test code = Segs) 69.7 45.0-75.0 [facility] CenterOhulxouSGXCWIDIRB7997-23-78 00:32:00 Test Item Value Reference Range Interpretation Comments Monocytes (test code = Monocytes) 5.3 2.0-12.0 [facility] CenterDdlxqbaBFMOLQLAAW1721-95-80 00:32:00 Test Item Value Reference Range Interpretation Comments Lymphocytes (test code = Lymphocytes) 23.0 20.0-40.0 [facility] CenterKwftibyUFVMZISNYF2583-97-90 00:32:00 Test Item Value Reference Range Interpretation Comments Platelet (test code = Platelet) 277 133-450 [facility] CenterDnujqocCRDGHHJSSW8169-05-61 00:32:00 Test Item Value Reference Range Interpretation Comments RDW (test code = RDW) 14.2 11.5-14.5 [facility] CenterJekfjunXBYRQYNQEJ1635-11-99 00:32:00 Test Item Value Reference Range Interpretation Comments MPV (test code = MPV) 8.5 7.4-10.4 [facility] CenterOpekuduCLASCNIMYL3049-56-48 00:32:00 Test Item Value Reference Range Interpretation Comments MCV (test code = MCV) 83.0 80.0-98.0 [facility] CenterWnqjnxdDYVOGGCZRV7471-48-67 00:32:00 Test Item Value Reference Range Interpretation Comments MCHC (test code = MCHC) 33.0 32.0-36.0 [facility] CenterMmhwrhqOUGNTCBVCZ7935-79-37 00:32:00 Test Item Value Reference Range Interpretation Comments MCH (test code = MCH) 27.4 pg 27.0-31.0 [facility] CenterIevvmfiOVWNRIOQES2523-80-80 00:32:00 Test Item Value Reference Range Interpretation Comments WBC (test code = WBC) 11.1 3.7-10.4 [facility] CenterPjjckcgILTDCSZMTC9921-95-37 00:32:00 Test Item Value Reference Range Interpretation Comments RBC (test code = RBC) 3.92 4.20-5.40 [facility] TaylorFknflyyXIFUEXBVRA6238-61-30 00:32:00 Test Item Value Reference Range Interpretation Comments Hep Bs Ag (test code Negative *NA*(06/17/18 = Hep Bs Ag) 7:32 PM) [facility] TaylorHqmdgouDPZLJSZSLI5891-54-65 00:32:00 Test Item Value Reference Range Interpretation Comments HIV. (test code = Negative *NA*(06/17/18 HIV.) 7:32 PM) [facility] TaylorChaejjlXEMCSSVHDE3583-10-23 00:32:00 Test Item Value Reference Range Interpretation Comments Treponemal Ab (test code Non-Reactive = Treponemal Ab) *NA*(06/17/18 7:32 PM) [facility] [employer] [facility] [employer] [id number] 00:32:00 Test Item Value Reference Range Interpretation Comments AB Int (test code = AB Int) Rhig Anti-D [facility] [employer] [id number] 00:32:00 Test Item Value Reference Range Interpretation Comments Path AB (test TRANSFUSION MEDICINE code = Path AB) [facility] Patient is an O, Rh-negative, 22 y/o at 39w2d with h/o cocaine abuse who presents for scheduled IOL. Immunohematologic testing demonstrates the presence of an anti-D in this patient s serum. This antibody is directed against the D antigen of the "Rh" blood group system and is typically IgG in nature. Although usually considered clinically significant, the presence of this antibody most likely represents passive immunization due to Rh Immune Globulin administration (by history given on 05/23/18). Should RBC transfusion be required, Rh-negative crossmatch-compatible units will be issued. No difficulty in obtaining compatible blood is expected. The patient s electronic medical record has been reviewed for relevant information. I have reviewed the test results and concur with the resident Dr. Mason's interpretation. CPT: 34325-JF [facility] [employer] [facility] [employer] [id number] 00:32:00 Test Item Value Reference Range Interpretation Comments ABO/Rh (test code = ABO/Rh) O NEG [facility] [employer] [id number] 00:32:00 Test Item Value Reference Range Interpretation Comments Antibody Scrn (test Positive 1(06/17/18 code = Antibody Scrn) 7:32 PM) [facility] [id number] 00:32:00 Test Item Value Reference Range Interpretation Comments U Amph Scr (test code Negative *NA*(06/17/18 = U Amph Scr) 7:32 PM) [employer] [id number] 00:32:00 Test Item Value Reference Range Interpretation Comments U Duyen Scr (test code Negative *NA*(06/17/18 = U Duyen Scr) 7:32 PM) [employer] [id number] 00:32:00 Test Item Value Reference Range Interpretation Comments U Propoxyph Scr (test Negative *NA*(06/17/18 code = U Propoxyph Scr) 7:32 PM) [facility] [id number] 00:32:00 Test Item Value Reference Range Interpretation Comments U Ethanol Scr (test Negative *NA*(06/17/18 code = U Ethanol Scr) 7:32 PM) [facility] [id number] 00:32:00 Test Item Value Reference Range Interpretation Comments U Cannab Scr (test Negative *NA*(06/17/18 code = U Cannab Scr) 7:32 PM) [facility] [id number] 00:32:00 Test Item Value Reference Range Interpretation Comments U Cocaine Scr (test Negative *NA*(06/17/18 code = U Cocaine Scr) 7:32 PM) [facility] [id number] 00:32:00 Test Item Value Reference Range Interpretation Comments U Benzodiaz Scr (test Negative *NA*(06/17/18 code = U Benzodiaz Scr) 7:32 PM) [facility] [id number] 00:32:00 Test Item Value Reference Range Interpretation Comments U Methadone Scr (test Negative *NA*(06/17/18 code = U Methadone Scr) 7:32 PM) [facility] [id number] 00:32:00 Test Item Value Reference Range Interpretation Comments UDS Note (test code = See Note (06/17/18 7:32 UDS Note) PM) [facility] [id number] 00:32:00 Test Item Value Reference Range Interpretation Comments U Opiate Scr (test Negative *NA*(06/17/18 code = U Opiate Scr) 7:32 PM) [facility] [id number] 00:32:00 Test Item Value Reference Range Interpretation Comments U Phencyclidine Scr (test Negative code = U Phencyclidine *NA*(06/17/18 7:32 Scr) PM) [facility]ballOzzdztwQHJKJMZMSK6226-47-05 00:32:00 Test Item Value Reference Range Interpretation Comments Eosinophils # (test code 0.2 See_Comment [A utomated message] The = Eosinophils #) system whic h generated this result tra nsmitted reference range : <=0.5. The reference r john was not used to int erpret this result as normal/abnormal . [facility] TomballPoxevrpMLMPDJIRJA9557-89-89 00:32:00 Test Item Value Reference Range Interpretation Comments Basophils (test code = 0.3 See_Comment [Aut omated message] The Basophils) system which ge nerated this result tra nsmitted reference range : <=1.0. The reference r john was not used to int erpret this result as normal/abnormal . [facility] CenterHvvryigAVEYGKWSPX2502-29-16 00:32:00 Test Item Value Reference Range Interpretation Comments Eosinophils (test code = 1.7 See_Comment [A utomated message] The Eosinophils) system which ge nerated this result tra nsmitted reference range : <=4.0. The reference r john was not used to int erpret this result as normal/abnormal . [facility] CenterYfhhfgrBIRYNTYLEP9342-78-18 00:32:00 Test Item Value Reference Range Interpretation Comments Monocytes # (test code 0.6 See_Comment [Aut omated message] The = Monocytes #) system which generated this result tra nsmitted reference range : <=0.8. The reference r john was not used to int erpret this result as normal/abnormal . [facility] CenterEzljddeTPCTHOSXGC2203-86-46 00:32:00 Test Item Value Reference Range Interpretation Comments Neutrophils # (test code = Neutrophils 7.7 1.5-8.1 #) [facility] CenterJasrwwnIMOEPPEDVG4410-23-33 00:32:00 Test Item Value Reference Range Interpretation Comments Lymphocytes # (test code = Lymphocytes 2.5 1.0-5.5 #) [facility] CenterMislgleZXNSKREOFB4269-67-52 00:32:00 Test Item Value Reference Range Interpretation Comments Segs (test code = Segs) 69.7 45.0-75.0 [facility] CenterUesniqbMFCTFVVFYQ9556-32-56 00:32:00 Test Item Value Reference Range Interpretation Comments Monocytes (test code = Monocytes) 5.3 2.0-12.0 [facility] CenterLeykhyxBUZPRMOMKC8830-63-81 00:32:00 Test Item Value Reference Range Interpretation Comments Lymphocytes (test code = Lymphocytes) 23.0 20.0-40.0 [facility] CenterBqhpcaqJZFGYNESMV0658-32-30 00:32:00 Test Item Value Reference Range Interpretation Comments Platelet (test code = Platelet) 277 133-450 [facility] CenterAxrpyfzVCNOYNRZLT1565-60-32 00:32:00 Test Item Value Reference Range Interpretation Comments RDW (test code = RDW) 14.2 11.5-14.5 [facility]TtgexjcKVQVNWUUJU9228-06-97 00:32:00 Test Item Value Reference Range Interpretation Comments MPV (test code = MPV) 8.5 7.4-10.4 [facility] GmhuaseSQPOQBZKQX9832-57-09 00:32:00 Test Item Value Reference Range Interpretation Comments MCV (test code = MCV) 83.0 80.0-98.0 [facility] CenterPkyyoxtMAVPNFEHPS7456-34-07 00:32:00 Test Item Value Reference Range Interpretation Comments MCHC (test code = MCHC) 33.0 32.0-36.0 [facility] CenterOpqpbijYJVNOVDMBY9229-53-92 00:32:00 Test Item Value Reference Range Interpretation Comments MCH (test code = MCH) 27.4 pg 27.0-31.0 [facility] CenterCibiwdgWWUDBXFFJG3423-41-89 00:32:00 Test Item Value Reference Range Interpretation Comments WBC (test code = WBC) 11.1 3.7-10.4 [facility] CenterIyvzlycUVMDFCDEPY6188-73-23 00:32:00 Test Item Value Reference Range Interpretation Comments RBC (test code = RBC) 3.92 4.20-5.40 [facility] GrkbupnFLVQFYMOCH6381-60-56 00:32:00 Test Item Value Reference Range Interpretation Comments Hep Bs Ag (test code Negative *NA*(06/17/18 = Hep Bs Ag) 7:32 PM) [facility]ballBjcpqakKFYGTRTEKG7866-20-89 00:32:00 Test Item Value Reference Range Interpretation Comments HIV. (test code = Negative *NA*(06/17/18 HIV.) 7:32 PM) [facility]ballIbjpgepOQBLRTMUDG9966-76-69 00:32:00 Test Item Value Reference Range Interpretation Comments Treponemal Ab (test code Non-Reactive = Treponemal Ab) *NA*(06/17/18 7:32 PM) [facility] [id number] 00:32:00 Test Item Value Reference Range Interpretation Comments AB Int (test code = AB Int) Rhig Anti-D [facility] [id number] 00:32:00 Test Item Value Reference Range Interpretation Comments Path AB (test TRANSFUSION MEDICINE code = Path AB) PHYSICIAN SERVICES Patient is an O, Rh-negative, 22 y/o at 39w2d with h/o cocaine abuse who presents for scheduled IOL. Immunohematologic testing demonstrates the presence of an anti-D in this patient s serum. This antibody is directed against the D antigen of the "Rh" blood group system and is typically IgG in nature. Although usually considered clinically significant, the presence of this antibody most likely represents passive immunization due to Rh Immune Globulin administration (by history given on 05/23/18). Should RBC transfusion be required, Rh-negative crossmatch-compatible units will be issued. No difficulty in obtaining compatible blood is expected. The patient s electronic medical record has been reviewed for relevant information. I have reviewed the test results and concur with the resident Dr. Mason's interpretation. CPT: 95280-AZ [facility] [employer] [facility] [id number] 00:32:00 Test Item Value Reference Range Interpretation Comments ABO/Rh (test code = ABO/Rh) O NEG [facility] [id number] 00:32:00 Test Item Value Reference Range Interpretation Comments Antibody Scrn (test Positive 1(06/17/18 code = Antibody Scrn) 7:32 PM) [facility] [employer] [id number] 00:32:00 Test Item Value Reference Range Interpretation Comments U Amph Scr (test code Negative *NA*(06/17/18 = U Amph Scr) 7:32 PM) [facility] [employer] [id number] 00:32:00 Test Item Value Reference Range Interpretation Comments U Duyen Scr (test code Negative *NA*(06/17/18 = U Duyen Scr) 7:32 PM) [facility] [employer] [id number] 00:32:00 Test Item Value Reference Range Interpretation Comments U Propoxyph Scr (test Negative *NA*(06/17/18 code = U Propoxyph Scr) 7:32 PM) [facility] [employer] [id number] 00:32:00 Test Item Value Reference Range Interpretation Comments U Ethanol Scr (test Negative *NA*(06/17/18 code = U Ethanol Scr) 7:32 PM) [employer] [id number] 00:32:00 Test Item Value Reference Range Interpretation Comments U Cannab Scr (test Negative *NA*(06/17/18 code = U Cannab Scr) 7:32 PM) [facility] [id number] 00:32:00 Test Item Value Reference Range Interpretation Comments U Cocaine Scr (test Negative *NA*(06/17/18 code = U Cocaine Scr) 7:32 PM) [facility] [id number] 00:32:00 Test Item Value Reference Range Interpretation Comments U Benzodiaz Scr (test Negative *NA*(06/17/18 code = U Benzodiaz Scr) 7:32 PM) [facility] [id number] 00:32:00 Test Item Value Reference Range Interpretation Comments U Methadone Scr (test Negative *NA*(06/17/18 code = U Methadone Scr) 7:32 PM) [facility] [id number] 00:32:00 Test Item Value Reference Range Interpretation Comments UDS Note (test code = See Note (06/17/18 7:32 UDS Note) PM) [facility] [id number] 00:32:00 Test Item Value Reference Range Interpretation Comments U Opiate Scr (test Negative *NA*(06/17/18 code = U Opiate Scr) 7:32 PM) [facility] [id number] 00:32:00 Test Item Value Reference Range Interpretation Comments U Phencyclidine Scr (test Negative code = U Phencyclidine *NA*(06/17/18 7:32 Scr) PM) [facility] TomballVnmxtukOVPKOXIHRA8278-92-89 00:32:00 Test Item Value Reference Range Interpretation Comments Eosinophils # (test code 0.2 See_Comment [A utomated message] The = Eosinophils #) system whic h generated this result tra nsmitted reference range : <=0.5. The reference r john was not used to int erpret this result as normal/abnormal . [facility] TomballBmjxzydSDHNLTIONN7009-52-69 00:32:00 Test Item Value Reference Range Interpretation Comments Basophils (test code = 0.3 See_Comment [Aut omated message] The Basophils) system which ge nerated this result tra nsmitted reference range : <=1.0. The reference r john was not used to int erpret this result as normal/abnormal . [facility] CenterIdnnxwrYJKINGTTQD3112-87-72 00:32:00 Test Item Value Reference Range Interpretation Comments Eosinophils (test code = 1.7 See_Comment [A utomated message] The Eosinophils) system which ge nerated this result tra nsmitted reference range : <=4.0. The reference r john was not used to int erpret this result as normal/abnormal . [facility] CenterHypupjeWUHKZGOUUL3714-40-73 00:32:00 Test Item Value Reference Range Interpretation Comments Monocytes # (test code 0.6 See_Comment [Aut omated message] The = Monocytes #) system which generated this result tra nsmitted reference range : <=0.8. The reference r john was not used to int erpret this result as normal/abnormal . [facility] CenterNglihiwZGJMJSEYCS0292-40-73 00:32:00 Test Item Value Reference Range Interpretation Comments Neutrophils # (test code = Neutrophils 7.7 1.5-8.1 #) [facility] CenterTdtieliDASUEPOWFK4444-58-80 00:32:00 Test Item Value Reference Range Interpretation Comments Lymphocytes # (test code = Lymphocytes 2.5 1.0-5.5 #) [facility] CenterHrinkznIKGXMBJDPC9908-69-79 00:32:00 Test Item Value Reference Range Interpretation Comments Segs (test code = Segs) 69.7 45.0-75.0 [facility] CenterKmailcdXZYACBBBJS9061-57-29 00:32:00 Test Item Value Reference Range Interpretation Comments Monocytes (test code = Monocytes) 5.3 2.0-12.0 [facility] CenterByreesrDLIRVBPUJV0240-22-29 00:32:00 Test Item Value Reference Range Interpretation Comments Lymphocytes (test code = Lymphocytes) 23.0 20.0-40.0 [facility] CenterNbjsyqfIQBWYHCETY3691-19-06 00:32:00 Test Item Value Reference Range Interpretation Comments Platelet (test code = Platelet) 277 133-450 [facility] CenterPltnsutPYYZYAUCVO4807-61-89 00:32:00 Test Item Value Reference Range Interpretation Comments RDW (test code = RDW) 14.2 11.5-14.5 [facility] CenterKorsmsuVEMNRLCERU7772-20-50 00:32:00 Test Item Value Reference Range Interpretation Comments MPV (test code = MPV) 8.5 7.4-10.4 [facility] CenterWavizgjHJEZFSTJOI4221-94-46 00:32:00 Test Item Value Reference Range Interpretation Comments MCV (test code = MCV) 83.0 80.0-98.0 [facility] CenterXqrcgmwBBNFLRCFSL9699-67-42 00:32:00 Test Item Value Reference Range Interpretation Comments MCHC (test code = MCHC) 33.0 32.0-36.0 [facility] CenterCuplqsoKAVQXDJEDS8657-79-26 00:32:00 Test Item Value Reference Range Interpretation Comments MCH (test code = MCH) 27.4 pg 27.0-31.0 [facility] CenterMljowutMMQDFYBBAQ4469-95-11 00:32:00 Test Item Value Reference Range Interpretation Comments WBC (test code = WBC) 11.1 3.7-10.4 [facility] CenterDymwkeuYPAACMZIKY0968-00-73 00:32:00 Test Item Value Reference Range Interpretation Comments RBC (test code = RBC) 3.92 4.20-5.40 [facility] TaylorBavfosaECKJQSLHQF7227-70-41 00:32:00 Test Item Value Reference Range Interpretation Comments Hep Bs Ag (test code Negative *NA*(06/17/18 = Hep Bs Ag) 7:32 PM) [facility] TaylorDixdgnqSOWLDVZKCX8825-72-30 00:32:00 Test Item Value Reference Range Interpretation Comments HIV. (test code = Negative *NA*(06/17/18 HIV.) 7:32 PM) [facility] TaylorJpukhbaLQSTKOHAFW5378-72-54 00:32:00 Test Item Value Reference Range Interpretation Comments Treponemal Ab (test code Non-Reactive = Treponemal Ab) *NA*(06/17/18 7:32 PM) [facility] ELTDRLL9467-10-22 00:32:00 Test Item Value Reference Range Interpretation Comments AB Int (test code = AB Int) Rhig Anti-D [facility] [id number] 00:32:00 Test Item Value Reference Range Interpretation Comments Path AB (test TRANSFUSION MEDICINE code = Path AB) PHYSICIAN SERVICES Patient is an O, Rh-negative, 22 y/o at 39w2d with h/o cocaine abuse who presents for scheduled IOL. Immunohematologic testing demonstrates the presence of an anti-D in this patient s serum. This antibody is directed against the D antigen of the "Rh" blood group system and is typically IgG in nature. Although usually considered clinically significant, the presence of this antibody most likely represents passive immunization due to Rh Immune Globulin administration (by history given on 05/23/18). Should RBC transfusion be required, Rh-negative crossmatch-compatible units will be issued. No difficulty in obtaining compatible blood is expected. The patient s electronic medical record has been reviewed for relevant information. I have reviewed the test results and concur with the resident Dr. Mason's interpretation. CPT: 58465-JT [facility] [employer] [facility] [id number] 00:32:00 Test Item Value Reference Range Interpretation Comments ABO/Rh (test code = ABO/Rh) O NEG [facility] [employer] [facility] [id number] 00:32:00 Test Item Value Reference Range Interpretation Comments Antibody Scrn (test Positive 1(06/17/18 code = Antibody Scrn) 7:32 PM) [facility] [employer] [id number] 00:32:00 Test Item Value Reference Range Interpretation Comments U Amph Scr (test code Negative *NA*(06/17/18 = U Amph Scr) 7:32 PM) [facility] [employer] [id number] 00:32:00 Test Item Value Reference Range Interpretation Comments U Duyen Scr (test code Negative *NA*(06/17/18 = U Duyen Scr) 7:32 PM) [facility] [employer] [id number] 00:32:00 Test Item Value Reference Range Interpretation Comments U Propoxyph Scr (test Negative *NA*(06/17/18 code = U Propoxyph Scr) 7:32 PM) [facility] [id number] 00:32:00 Test Item Value Reference Range Interpretation Comments U Ethanol Scr (test Negative *NA*(06/17/18 code = U Ethanol Scr) 7:32 PM) [facility] [id number] 00:32:00 Test Item Value Reference Range Interpretation Comments U Cannab Scr (test Negative *NA*(06/17/18 code = U Cannab Scr) 7:32 PM) [facility] [id number] 00:32:00 Test Item Value Reference Range Interpretation Comments U Cocaine Scr (test Negative *NA*(06/17/18 code = U Cocaine Scr) 7:32 PM) [facility] [id number] 00:32:00 Test Item Value Reference Range Interpretation Comments U Benzodiaz Scr (test Negative *NA*(06/17/18 code = U Benzodiaz Scr) 7:32 PM) [facility] [id number] 00:32:00 Test Item Value Reference Range Interpretation Comments U Methadone Scr (test Negative *NA*(06/17/18 code = U Methadone Scr) 7:32 PM) [facility] [id number] 00:32:00 Test Item Value Reference Range Interpretation Comments UDS Note (test code = See Note (06/17/18 7:32 UDS Note) PM) [facility] [id number] 00:32:00 Test Item Value Reference Range Interpretation Comments U Opiate Scr (test Negative *NA*(06/17/18 code = U Opiate Scr) 7:32 PM) [facility] [id number] 00:32:00 Test Item Value Reference Range Interpretation Comments U Phencyclidine Scr (test Negative code = U Phencyclidine *NA*(06/17/18 7:32 Scr) PM) [facility]IhkrzazPBJJRTMUOE3089-11-68 00:32:00 Test Item Value Reference Range Interpretation Comments Eosinophils # (test code 0.2 See_Comment [A utomated message] The = Eosinophils #) system wh h generated this result tra nsmitted reference range : <=0.5. The reference r john was not used to int erpret this result as normal/abnormal . [facility] CenterGiizqxsPCNZRJABCJ3396-13-81 00:32:00 Test Item Value Reference Range Interpretation Comments Basophils (test code = 0.3 See_Comment [Aut omated message] The Basophils) system which ge nerated this result tra nsmitted reference range : <=1.0. The reference r john was not used to int erpret this result as normal/abnormal . [facility] CenterYhgekxrXKACBEYZMH8733-37-32 00:32:00 Test Item Value Reference Range Interpretation Comments Eosinophils (test code = 1.7 See_Comment [A utomated message] The Eosinophils) system which ge nerated this result tra nsmitted reference range : <=4.0. The reference r john was not used to int erpret this result as normal/abnormal . [facility] CenterYmsxegsJVTHBMLVRY3274-94-75 00:32:00 Test Item Value Reference Range Interpretation Comments Monocytes # (test code 0.6 See_Comment [Aut omated message] The = Monocytes #) system which generated this result tra nsmitted reference range : <=0.8. The reference r john was not used to int erpret this result as normal/abnormal . [facility] CenterOfkvnhrHLERVZRKCZ8761-40-16 00:32:00 Test Item Value Reference Range Interpretation Comments Neutrophils # (test code = Neutrophils 7.7 1.5-8.1 #) [facility] CenterIveypqoWKLEONAALB0457-09-02 00:32:00 Test Item Value Reference Range Interpretation Comments Lymphocytes # (test code = Lymphocytes 2.5 1.0-5.5 #) [facility] CenterGzsrwjvIKZKJHYKQF9632-44-09 00:32:00 Test Item Value Reference Range Interpretation Comments Segs (test code = Segs) 69.7 45.0-75.0 [facility] CenterOplumqeTAHBHOBMDG1207-43-35 00:32:00 Test Item Value Reference Range Interpretation Comments Monocytes (test code = Monocytes) 5.3 2.0-12.0 [facility] CenterEzulbvkOMGSHFUJXP0744-87-20 00:32:00 Test Item Value Reference Range Interpretation Comments Lymphocytes (test code = Lymphocytes) 23.0 20.0-40.0 [facility] CenterMkkjlpfDJRLTEIBUP7139-25-42 00:32:00 Test Item Value Reference Range Interpretation Comments Platelet (test code = Platelet) 277 133-450 [facility] CenterZnkhtzkFVDVQFHOBE2903-37-04 00:32:00 Test Item Value Reference Range Interpretation Comments RDW (test code = RDW) 14.2 11.5-14.5 [facility] CenterAuojeaiVMZDVUODUJ8427-23-92 00:32:00 Test Item Value Reference Range Interpretation Comments MPV (test code = MPV) 8.5 7.4-10.4 [facility] CenterPeqgxmfHHDBHMQAHZ7493-86-33 00:32:00 Test Item Value Reference Range Interpretation Comments MCV (test code = MCV) 83.0 80.0-98.0 [facility] CenterZnutsijYDCBXZTDIC8481-23-19 00:32:00 Test Item Value Reference Range Interpretation Comments MCHC (test code = MCHC) 33.0 32.0-36.0 [facility] CenterHyamhwoPOHXJCUEUM5261-17-19 00:32:00 Test Item Value Reference Range Interpretation Comments MCH (test code = MCH) 27.4 pg 27.0-31.0 [facility] CenterKualvzyCJAYRITJVV2329-59-31 00:32:00 Test Item Value Reference Range Interpretation Comments WBC (test code = WBC) 11.1 3.7-10.4 [facility]ballQejrbvfOUSFRXWAPI7014-35-55 00:32:00 Test Item Value Reference Range Interpretation Comments RBC (test code = RBC) 3.92 4.20-5.40 [facility]ballYcngoaeEOFIFNJKUC0320-53-32 00:32:00 Test Item Value Reference Range Interpretation Comments Hep Bs Ag (test code Negative *NA*(06/17/18 = Hep Bs Ag) 7:32 PM) [facility]ballKzrvbeiSFFZNZRGJL3411-19-40 00:32:00 Test Item Value Reference Range Interpretation Comments HIV. (test code = Negative *NA*(06/17/18 HIV.) 7:32 PM) [facility]ballRvsldlsRVZBXXPMCX2424-60-61 00:32:00 Test Item Value Reference Range Interpretation Comments Treponemal Ab (test code Non-Reactive = Treponemal Ab) *NA*(06/17/18 7:32 PM) [facility] [id number] 00:32:00 Test Item Value Reference Range Interpretation Comments AB Int (test code = AB Int) Rhig Anti-D [facility] SZEPZLI2758-26-97 00:32:00 Test Item Value Reference Range Interpretation Comments Path AB (test TRANSFUSION MEDICINE code = Path AB) PHYSICIAN SERVICES Patient is an O, Rh-negative, 22 y/o at 39w2d with h/o cocaine abuse who presents for scheduled IOL. Immunohematologic testing demonstrates the presence of an anti-D in this patient s serum. This antibody is directed against the D antigen of the "Rh" blood group system and is typically IgG in nature. Although usually considered clinically significant, the presence of this antibody most likely represents passive immunization due to Rh Immune Globulin administration (by history given on 05/23/18). Should RBC transfusion be required, Rh-negative crossmatch-compatible units will be issued. No difficulty in obtaining compatible blood is expected. The patient s electronic medical record has been reviewed for relevant information. I have reviewed the test results and concur with the resident Dr. Mason's interpretation. CPT: 49090-OY [facility] [id number] 00:32:00 Test Item Value Reference Range Interpretation Comments ABO/Rh (test code = ABO/Rh) O NEG [facility] [id number] 00:32:00 Test Item Value Reference Range Interpretation Comments Antibody Scrn (test Positive 1(06/17/18 code = Antibody Scrn) 7:32 PM) [facility] [id number] 00:32:00 Test Item Value Reference Range Interpretation Comments U Amph Scr (test code Negative *NA*(06/17/18 = U Amph Scr) 7:32 PM) [facility] ZOBPDB4925-03-20 00:32:00 Test Item Value Reference Range Interpretation Comments U Duyen Scr (test code Negative *NA*(06/17/18 = U Duyen Scr) 7:32 PM) [facility] [id number] 00:32:00 Test Item Value Reference Range Interpretation Comments U Propoxyph Scr (test Negative *NA*(06/17/18 code = U Propoxyph Scr) 7:32 PM) [facility] [id number] 00:32:00 Test Item Value Reference Range Interpretation Comments U Ethanol Scr (test Negative *NA*(06/17/18 code = U Ethanol Scr) 7:32 PM) [facility] [id number] 00:32:00 Test Item Value Reference Range Interpretation Comments U Cannab Scr (test Negative *NA*(06/17/18 code = U Cannab Scr) 7:32 PM) [facility] [id number] 00:32:00 Test Item Value Reference Range Interpretation Comments U Cocaine Scr (test Negative *NA*(06/17/18 code = U Cocaine Scr) 7:32 PM) [facility] AQPISW3606-75-04 00:32:00 Test Item Value Reference Range Interpretation Comments U Benzodiaz Scr (test Negative *NA*(06/17/18 code = U Benzodiaz Scr) 7:32 PM) [facility] [id number] 00:32:00 Test Item Value Reference Range Interpretation Comments U Methadone Scr (test Negative *NA*(06/17/18 code = U Methadone Scr) 7:32 PM) [facility] [id number] 00:32:00 Test Item Value Reference Range Interpretation Comments UDS Note (test code = See Note (06/17/18 7:32 UDS Note) PM) [facility] [id number] 00:32:00 Test Item Value Reference Range Interpretation Comments U Opiate Scr (test Negative *NA*(06/17/18 code = U Opiate Scr) 7:32 PM) [facility]2019-03-23 00:32:00 Test Item Value Reference Range Interpretation Comments U Phencyclidine Scr (test Negative code = U Phencyclidine *NA*(06/17/18 7:32 Scr) PM) [facility] CenterTdswpfaOHHFMKHTJA8841-12-34 00:32:00 Test Item Value Reference Range Interpretation Comments Eosinophils # (test code = Eosinophils 0.2 <=0.5 #) [facility] CenterAxuxypuTYPJUMTYSZ9280-30-75 00:32:00 Test Item Value Reference Range Interpretation Comments Basophils (test code = Basophils) 0.3 <=1.0 [facility] CenterFnvggsgRGLAOFPMQA4005-43-21 00:32:00 Test Item Value Reference Range Interpretation Comments Eosinophils (test code = Eosinophils) 1.7 <=4.0 [facility] CenterNjcyeaiRKREHQLHBQ7756-69-49 00:32:00 Test Item Value Reference Range Interpretation Comments Monocytes # (test code = Monocytes #) 0.6 <=0.8 [facility] CenterAlftwuuUEKWGWFKXX1922-21-62 00:32:00 Test Item Value Reference Range Interpretation Comments Neutrophils # (test code = Neutrophils 7.7 1.5-8.1 #) [facility] CenterEbfonznCUTHAOFCKV6730-33-84 00:32:00 Test Item Value Reference Range Interpretation Comments Lymphocytes # (test code = Lymphocytes 2.5 1.0-5.5 #) [facility] CenterHdgujyqEHQDTROKIR0316-82-88 00:32:00 Test Item Value Reference Range Interpretation Comments Segs (test code = Segs) 69.7 45.0-75.0 [facility] CenterTyfmtorQQWHKLJMSP4389-78-94 00:32:00 Test Item Value Reference Range Interpretation Comments Monocytes (test code = Monocytes) 5.3 2.0-12.0 [facility] CenterAcmcnpwKPJVWQNIHV8308-17-22 00:32:00 Test Item Value Reference Range Interpretation Comments Lymphocytes (test code = Lymphocytes) 23.0 20.0-40.0 [facility] CenterSzjcwewDTDRIBGLTM4213-62-33 00:32:00 Test Item Value Reference Range Interpretation Comments Platelet (test code = Platelet) 277 133-450 [facility] CenterVvziblfQXYGPIBWCW7581-99-06 00:32:00 Test Item Value Reference Range Interpretation Comments RDW (test code = RDW) 14.2 11.5-14.5 [facility] CenterHljwnesCAXMDOGJLA3897-06-98 00:32:00 Test Item Value Reference Range Interpretation Comments MPV (test code = MPV) 8.5 7.4-10.4 [facility] CenterIqimypeOIDIXOGPWE4250-10-31 00:32:00 Test Item Value Reference Range Interpretation Comments MCV (test code = MCV) 83.0 80.0-98.0 [facility] CenterAdxvncmOVXDKHIKNW6315-80-56 00:32:00 Test Item Value Reference Range Interpretation Comments MCHC (test code = MCHC) 33.0 32.0-36.0 [facility] CenterWmgbmhxDLRKRTECKB3371-35-02 00:32:00 Test Item Value Reference Range Interpretation Comments MCH (test code = MCH) 27.4 pg 27.0-31.0 [facility] CenterQlsyoejHURPICHWPI2627-77-38 00:32:00 Test Item Value Reference Range Interpretation Comments WBC (test code = WBC) 11.1 3.7-10.4 [facility] CenterSroyftdVPEUJJXKGF0203-29-38 00:32:00 Test Item Value Reference Range Interpretation Comments RBC (test code = RBC) 3.92 4.20-5.40 [facility]ballIuqinvvCTNWRHDYWJ7281-82-61 00:32:00 Test Item Value Reference Range Interpretation Comments Hep Bs Ag (test code Negative *NA*(06/17/18 = Hep Bs Ag) 7:32 PM) [facility] TaylorBahlotsWOUVIRRFUF5887-53-68 00:32:00 Test Item Value Reference Range Interpretation Comments HIV. (test code = Negative *NA*(06/17/18 HIV.) 7:32 PM) [facility]ballNvyeihzRUPLVAEBBB4210-27-44 00:32:00 Test Item Value Reference Range Interpretation Comments Treponemal Ab (test code Non-Reactive = Treponemal Ab) *NA*(06/17/18 7:32 PM) [facility][] Obstetrics Panel (includes CBCw/Diff,RPR, HbsAg,RubIgG,Type and Screen)2018-06-02 14:48:01 Test Item Value Reference Range Interpretation Comments WBC; Above High 11.0 {K/CMM} 3.7-10.4 Threshold (test code = 6690-2) RBC; Below Low 4.03 {M/CMM} 4.20-5.40 Threshold (test code = 789-8) Hgb; Below Low 11.3 g/dl 12.0-16.0 Threshold (test code = 717-9) Hct; Below Low 33.8 % 36.0-48.0 Threshold (test code = 91636-0) MCV (test code = 84.1 fL 80.0-98.0 787-2) MCH (test code = 28.1 pg 27.0-31.0 28559-6) MCHC (test code = 33.5 g/dl 32.0-36.0 786-4) RDW (test code = 13.9 % 11.5-14.5 788-0) Platelet (test code = 292 {K/CMM} 133-450 777-3) MPV (test code = 8.4 fL 7.4-10.4 47274-3) Segs (test code = 74.9 % 45.0-75.0 74967-8) Monocytes # (test 0.5 {K/CMM} 0.0-0.8 code = 98476-7) Lymphocytes (test 19.8 % 20.0-40.0 code = Lymphocytes) Eosinophils (test 0.9 % 0.0-4.0 code = Eosinophils) Basophils (test code 0.2 % 0.0-1.0 = 36846-4) Segs-Bands #; Above 8.2 {K/CMM} 1.5-8.1 High Threshold (test code = 66299-5) Lymphocytes # (test 2.2 {K/CMM} 1.0-5.5 code = 70324-1) Eosinophils # (test 0.1 {K/CMM} 0.0-0.5 code = 85572-9) ABORH (test code = O NEG 882-1) AB Screen (test code Positive = 0-4) Rubella IgG (test 231.9 {IU/ml} >=10.0 Reference Range: code = 78133-6) Immune >= 10 IU/mL Hep Bs Ag (test code Negative Negative = 5-3) RPR (test code = Non-Reactive Non-Reactive 48800-1) [facility]] HEPATITIS B SURFACE ANTIGEN W/REFL [id number] 14:48:01 Test Item Value Reference Range Interpretation Comments Hepatitis B Surface Antigen (test Negative Negative code = 5195-3) [facility]] HEPATITIS C [id number] 14:48:01 Test Item Value Reference Range Interpretation Comments Hepatitis C Antibody (test code = Negative 04676-5) [facility][] HIV AB, HIV 1/2, EIA, WITH [id number] 14:48:01 Test Item Value Reference Range Interpretation Comments HIV Ag/Ab 4th Gen Negative Negative HIV test r esults should be (test code = considered posi tive only 03543-9) when both the s creening andthe confirma tory tests are positive. A negative confirmatory te st in patientswith a positive screening test does not exclude HIV inf ection. If clincallywarran kayley, an HIV RNA quantitativ e test should be order ed. [facility]] URINALYSIS, [id number] 14:48:01 Test Item Value Reference Range Interpretation Comments UA Color (test code = 5778-6) Ltyellow UA Turbidity (test code = 95630-8) Clear Clear UA Spec Grav (test code = 5810-7) 1.012 <=1.030 UA pH (test code = 5803-2) 6.0 5.0-8.0 UA Protein (test code = 18013-4) Negative Negative UA Glucose (test code = 79750-2) Negative Negative UA Ketones (test code = 27679-7) Negative Negative UA Bili (test code = 5770-3) Negative Negative UA Blood (test code = 5794-3) Negative Negative UROBILINOGEN (test code = 19903-1) <=1.0 0.1-1.0 UA Nitrite (test code = 5802-4) Negative Negative UA Leuk Est (test code = 5799-2) Negative Negative UA RBC (test code = 33425-7) 1 {/HPF} 0-2 UA WBC (test code = 35493-1) 2 {/HPF} 0-5 UA Bacteria (test code = 08719-4) Occasional None Seen UA Mucus (test code = 8247-9) Few None Seen UA Sq Epi (test code = 34772-2) Occasional Few [facility][H] Drug Screen Urine (9 Drugs)2018-06-02 14:48:01 [...] Propoxyphene Negative Negative Screen (test code = 28018-0) Urine Drug Screen Note See Note Drugs reported as (test code = Urine Drug posi tive have not been Screen Note) confirmed by a secondmethod an d should be used for medical purpose s only. To orderconfirm ation, contact laboratory.no te: Below are cut-o ff concentrations for all urine drugs carla lemus performed in e laboratory. Steve e drugs listed in the t ablemay not be included in this panel.Desc ription Cut-off concentration-- ------- ------- ----Amp hetamine 1000 ng/mLBarbiturat es 200 ng/mLBenzodiaze pines 200 ng/mLCocain e metabolites 300 ng/mLOpiates 30 0 ng/mLPhencyclid ine 25 ng/mLPropoxyphe ne 300 ng/mLMarijuana metabolites 50 ng/mLMethadone 300 ng/mLUrine alco hol 20 mg/dL [facility][H] Treponema Pallidum Antibody by [id number] 14:48:01 Test Item Value Reference Range Interpretation Comments T pallidum Ab (test code = Non Reactive Non Reactive 13290-3) [facility]] CULTURE, URINE, [id number] 14:48:01 Test Item Value Reference Range Interpretation Comments FINAL REPORT (test code <10,000 CFU/mL Skin = FINAL REPORT) Mary [facility][QH] STREPTOCOCCUS, GROUP B CULTURE (Genital Strep Screen) 2018-06-02 14:48:01 Test Item Value Reference Range Interpretation Comments FINAL REPORT (test No Beta-Hemolytic code = FINAL REPORT) Streptococci Isolated [facility][H] Hemoglobin Electrophoresis and Kgkgkufwbjfqqx9816-30-45 14:48:01 Test Item Value Reference Range Interpretation Comments Hgb A % (test code = 97.6 % 95.8-97.8 4546-8) Hgb A2 % (test code = 2.4 % 2.2-3.2 4552-6) Hgb F % (test code = 0.0 % 0.0-1.0 28279-5) Hgb S % (test code = 0.0 % 0.0-0.0 43875-3) Hgb C % (test code = 0.0 % 0.0-0.0 18671-7) Hemoglobin SEE NOTES No abnormal Electrophoresis hemoglobins are Interpretation (test detecte d. Normal code = 05664-8) hemoglobin electrophoresis raimundo rain.The [facility] medical record has been reviewed f or relevant history.Ihave personally revi ewed the test result s and concur with the resident'camposter preta tion.CPT 76828-YZEyehbdx cj Signature Madie Serra MD 12:47 PM [facility]. [facility] - GC/Vnbwfxkrf5626-07-56 00:00:00 Test Item Value Reference Range Interpretation Comments GC/Chlamydia REPORT (test code = See Comment 51570-6) [facility]
--- NOTE | 2023-02-24 15:48 | EDPHYS ---
Physician Documentation [facility] Name: Grecia Alcantara Age: 27 yrs Sex: Female : 1995 Arrival Date: 02/24/2023 Time: 15:36 Bed IW1 Private MD: ED Physician Arturo Kelsey HPI: 02/24 15:43 This 27 yrs old Female presents to ER via Unassigned with complaints of Ear Pain. kb 15:43 The patient presents with pain, moderate. The complaints affect the left ear. Onset: kb The symptoms/episode began/occurred 3 day(s) ago. Modifying factors: The symptoms are alleviated by nothing, the symptoms are aggravated by nothing. Associated signs and symptoms: Pertinent positives: fever, sore throat, cough. Severity of symptoms: At their worst the symptoms were moderate in the emergency department the symptoms are unchanged. The patient has not experienced similar symptoms in the past. The patient has not recently seen a physician. Pt reports left ear pain for 3 days and now has drainage. States she had a cough, congestion and sore throat originally, but now only ear pain. . 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 - Social history:: Smoking status: Patient reports the use of cigarette tobacco products, smokes one-half pack cigarettes per day. ROS: 15:45 Abdomen/GI: Negative for abdominal pain, nausea, vomiting, diarrhea, and constipation, kb 15:45 Constitutional: Positive for fever, 15:45 ENT: Positive for ear pain, 15:45 All other systems are negative, Exam: 15:45 Constitutional: This is a well developed, well nourished patient who is awake, alert, kb and in no acute distress. Head/Face: Normocephalic, atraumatic. Cardiovascular: Regular rate Respiratory: Respirations even and unlabored. No increased work of breathing. Talking in full sentences Skin: Warm, dry with normal turgor. Normal color. MS/ Extremity: Pulses equal, no cyanosis. Neurovascular intact. Full, normal range of motion. Neuro: Awake and alert, GCS 15, oriented to person, place, time, and situation. Moves all extremities. Normal gait. 15:45 ENT: External ear(s): are unremarkable, Ear canal(s): purulent discharge, that is moderate, in the left canal, TM's: not visable, because of discharge, 15:46 ENT: TM's: erythema, that is moderate, on the right, kb Vital Signs: 15:49 BP 137 / 92; Pulse 100; Resp 17; Temp 98.3; Pulse Ox 98% ; Weight 86.18 kg; Height 5 aa5 ft. 0 in. ; Pain 10/10; 15:49 Body Mass Index 37.11 (86.18 kg, 152.4 cm) aa5 15:49 Pain Scale: Adult aa5 MDM: 15:41 Patient medically screened. kb 15:46 Differential diagnosis: otitis media, otitis externa, ruptured TM, acute otalgia. Data kb reviewed: vital signs, nurses notes. Test considered but Not performed: Labs: flu, covid and strep tests considered, but results would not change plan of care. Counseling: I had a detailed discussion with the patient and/or guardian regarding the historical points, exam findings, and any diagnostic results supporting the discharge/admit diagnosis, the need for outpatient follow up, a family practitioner, to return to the emergency department if symptoms worsen or persist or if there are any questions or concerns that arise at home. Administered Medications: No medications were administered Disposition Summary: 02/24/23 15:47 Discharge Ordered Notes: Location: Home kb Condition: Stable kb Diagnosis - Otitis media, unspecified, left ear kb Followup: kb - With: Emergency Department - When: As needed - Reason: Worsening of condition Followup: kb - With: Private Physician - When: 2 - 3 days - Reason: Recheck today's complaints, Continuance of care, Re-evaluation by your physician Discharge Instructions: - Discharge Summary Sheet kb - Otitis Media, Adult, Foow-bf-Ibhu kb Forms: - Medication Reconciliation Form kb - Thank You Letter kb - Antibiotic Education kb - Prescription Opioid Use kb - Patient Portal Instructions kb - Leadership Thank You Letter kb - Work release form aa5 Prescriptions: - Amoxicillin 875 mg Oral Tablet - take 1 tablet ORAL route every 12 hours for 10 days; 20 tablet; Refills: 0, kb Product Selection Permitted Signatures: Ivy Bailon FNP-C MEDICAL RECEPTIONIST-Ckb Sary Jackson, RN RN aa5 Corrections: (The following items were deleted from the chart) 15:47 15:47 Otitis media, unspecified, bilateral kb kb 15:49 15:48 PSHx: None; aa5 aa5
--- NOTE | 2023-02-24 15:55 | ER ---
Nurse's Notes [facility] [place] Name: Grecia Alcantara Age: 27 yrs Sex: Female : 1995 Arrival Date: 02/24/2023 Time: 15:36 Bed IW1 Private MD: Diagnosis: Otitis media, unspecified, left ear Presentation: 02/24 15:49 Chief complaint: Patient states: L ear pain/drainage for 3 days. Coronavirus screen: aa5 Vaccine status: Patient reports receiving the 2nd dose of the covid vaccine. Client denies travel out of the [place] in the last 14 days. cough unrelated to allergies, fatigue, Client presents with at least one sign or symptom that may indicate coronavirus-19. Standard/surgical mask placed on the client. Ebola Screen: Patient denies travel to an Ebola-affected area in the 21 days before illness onset. Initial Sepsis Screen: Does the patient meet any 2 criteria? No. Patient's initial sepsis screen is negative. Does the patient have a suspected source of infection? Yes: Other: ear pain. Risk Assessment: Do you want to hurt yourself or someone else? Patient reports no desire to harm self or others. Onset of symptoms was February 22, 2023. 15:49 Method Of Arrival: Ambulatory aa5 15:49 Acuity: RICARDO 4 aa5 Triage Assessment: 15:48 General: Appears uncomfortable, Behavior is calm, cooperative, appropriate for age. ll1 Pain: Complains of pain in left ear Pain currently is 10 out of 10 on a pain scale. EENT: Reports pain in left ear drainage/bleeding. Respiratory: Reports cough that is. 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 - Social history:: Smoking status: Patient reports the use of cigarette tobacco products, smokes one-half pack cigarettes per day. Screenin:57 [facility] ED Fall Risk Assessment (Adult) Score/Fall Risk Level 0 - 2 = Low Risk ll1 Oriented to surroundings, Maintained a safe environment, Educated pt \T\ family on fall prevention, incl call for assistance when getting out of bed, Hourly rounding (assess needs \T\ fall precautionary measures) done. Abuse screen: Denies threats or abuse. Nutritional screening: No deficits noted. Tuberculosis screening: No symptoms or risk factors identified. Vital Signs: 15:49 BP 137 / 92; Pulse 100; Resp 17; Temp 98.3; Pulse Ox 98% ; Weight 86.18 kg; Height 5 aa5 ft. 0 in. ; Pain 10/10; 15:49 Body Mass Index 37.11 (86.18 kg, 152.4 cm) aa5 15:49 Pain Scale: Adult aa5 ED Course: 15:39 Patient arrived in ED. mg5 15:40 [facility]ail[facility]-C [facility] kb 15:40 Arturo Kelsey MD is Attending Physician. kb 15:50 Triage completed. aa5 15:50 Arm band placed on. aa5 15:57 Patient has correct armband on for positive identification. Bed in low position. Call ll1 light in reach. Provided Education on: n/a. 15:57 No provider procedures requiring assistance completed. Patient did not have IV access ll1 during this emergency room visit. Administered Medications: No medications were administered Medication: 15:57 VIS not applicable for this client. ll1 Outcome: 15:47 Discharge ordered by . kb 15:55 Patient left the ED. aa5 15:57 Discharged to home ambulatory, ll1 15:57 Condition: stable 15:57 Discharge instructions given to patient, Instructed on discharge instructions, follow up and referral plans. medication usage, Demonstrated understanding of instructions, follow-up care, medications, Prescriptions given X 1, Signatures: Ivy Bailon FNP-C FNP-Ckb Calderon, Audri, RN RN aa5 Amador Herrera RN RN [id number] Estrellita Salgado mg5 Corrections: (The following items were deleted from the chart) 15:49 15:48 PSHx: None; aa5 aa5
[2023-02-24 15:59] VITALS: BP 137/92; TEMP 98.3; O2SAT 98
== END 2023-02-24 15:55 | disposition home or self-care (01) ==
LOC: ER 15:36
DX: H66.92 Otitis media, unspecified, left ear (principal)
CPT/HCPCS: 99283